=== PATIENT | male | born 1945 | race American Indian/Alaskan Native ===

== ENCOUNTER 2018-10-30 12:53 | Inpatient (IN) | payer MEDICARE ==
[~2018-10-30 12:53] MED LIST: PNEUMOVAX 23 IM ONE
[2018-10-30 13:32] LABS: Basophils % (Auto) 0.2 % (0.0-1.8); Eosinophils % (Auto) 0.1 % (0.0-4.3); Hematocrit 45.2 % (35.5-45.6); Hemoglobin 15.3 gm/dl (11.8-15.2); Lymphocytes # (Auto) 2.4 K/mm3 (1.2-5.4); Lymphocytes % (Auto) 17.9 % (13.4-35.0); Mean Corpuscular HGB Conc 34 % (32-34); Mean Corpuscular Volume 94 fl (84-94); Monocytes # (Auto) 0.7 K/mm3 (0.0-0.8); Platelet Count 466 K/mm3 (140-440); Red Blood Count 4.81 M/mm3 (3.65-5.03); Red Cell Distribution Width 14.9 % (13.2-15.2)
[2018-10-30 13:47] LABS: BUN/Creatinine Ratio 24; Blood Urea Nitrogen 17 mg/dL (9-20); Calcium 10.7 mg/dL (8.4-10.2); Hemolysis Index 17
[2018-10-30] MEDS ORDERED: XYLOCAINE 1% 20 mL INFILTRATI ONE (13:50)
[2018-10-30] MEDS ORDERED: NACL 0.9% 500 ML 500 ML ONE (14:06)
[2018-10-30] MEDS ORDERED: NACL 0.9% 500 ML 500 ML IV ONE (14:08)
[2018-10-30] MEDS ORDERED: NACL 0.9% 1000 ML IV ONE (14:11)
[2018-10-30] MEDS ORDERED: CLEOCIN 600 MG/50 mL 600 MG/50 ML BAG IV ONE (14:13)
--- NOTE | 2018-10-30 14:58 | XRay Report ---
AP CHEST: HISTORY: Cough No comparison. Normal heart size and pulmonary vascularity. There is patchy infiltration in the right lower lung. This could represent an early infiltrate. There appears to be a severe cystic changes throughout the right upper lobe. This may represent a very large bulla. A right apical pneumothorax is difficult to exclude. There are surgical clips in this area suggesting this is secondary to surgery. The left lung is clear. Normal heart size. IMPRESSION: Abnormal right lung. Subtle infiltrate or nodularity is identified in the lower right lung. There is a large bulla or possibly in the right apical pneumothorax. Consider further evaluation with CT chest with contrast.
--- NOTE | 2018-10-30 15:22 | Emergency Department Report ---
ED General Adult HPI - General Chief complaint: Skin/Abscess/Foreign Body Stated complaint: ABCESS Time Seen by Provider: 10/30/18 13:31 Source: EMS, old records reviewed Mode of arrival: Stretcher Limitations: Physical Limitation - History of Present Illness Initial comments: Patient presents to the emergency department from a local correction for ab scess on the right side of his chest. Patient has difficulty with talking so there is a barrier upon attainment of the history. Patient voiced does not rise above was better but he denies any pain. Patient states the abscess started a week ago -: Gradual Location: chest Radiation: non-radiation Severity scale (0 -10): 0 Improves with: none Worsens with: none Associated Symptoms: denies other symptoms Treatments Prior to Arrival: none - Related Data Home Medications Medication Instructions Recorded Confirmed Last Taken Lisinopril [Zestril] 20 mg PO DAILY 08/22/18 10/30/18 Unknown Loperamide HCl [Imodium A-D] 2 mg PO Q6HR PRN 08/22/18 10/30/18 Unknown Megestrol [Megace] 20 mg PO DAILY 08/22/18 10/30/18 Unknown Mirtazapine [Remeron] 15 mg PO HS 08/22/18 10/30/18 Unknown Multivit-Min/Iron Fum/Folic AC 1 each PO DAILY 08/22/18 10/30/18 Unknown [Qonzf-Imnyttu-Mfslfqno Tablet] Tramadol HCl [Ultram] 50 mg PO Q6H PRN 08/22/18 10/30/18 Unknown ALBUTEROL NEB's [Proventil] 2.5 mg IH BID PRN 10/30/18 10/30/18 Unknown Acetaminophen [Tylenol] 500 mg PO Q8HR PRN 10/30/18 10/30/18 Unknown Budesonide [Pulmicort] 0.5 mg IH Q12HR PRN 10/30/18 10/30/18 Unknown Cholestyramine (with Sugar) 4 gm PO DAILY 10/30/18 10/30/18 Unknown [Questran Powder] Pantoprazole [Protonix] 40 mg PO QDAY 10/30/18 10/30/18 Unknown Saccharomyces Boulardii [Florastor] 250 mg PO BID PRN 10/30/18 10/30/18 Unknown levETIRAcetam [Keppra TAB] 500 mg PO BID 10/30/18 10/30/18 Unknown Allergies Allergy/AdvReac Type Severity Reaction Status Date / Time No Known Allergies Allergy Verified 08/21/18 19:54 ED Review of Systems ROS: Stated complaint: ABCESS Other details as noted in HPI Comment: All other systems reviewed and negative Constitutional: denies: chills, fever Eyes: denies: eye pain, eye discharge, vision change ENT: denies: ear pain, throat pain Respiratory: denies: cough, shortness of breath, wheezing Cardiovascular: denies: chest pain, palpitations Endocrine: no symptoms reported Gastrointestinal: denies: abdominal pain, nausea, diarrhea Genitourinary: denies: urgency, dysuria Musculoskeletal: denies: back pain, joint swelling, arthralgia Skin: denies: rash, lesions Neurological: denies: headache, weakness, paresthesias Psychiatric: denies: anxiety, depression Hematological/Lymphatic: denies: easy bleeding, easy bruising ED Past Medical Hx - Past Medical History Hx Hypertension: Yes Hx Diabetes: Yes Hx HIV: No Additional medical history: afib - Social History Smoking Status: Never Smoker Substance Use Type: None - Medications Home Medications: Home Medications Medication Instructions Recorded Confirmed Last Taken Type Lisinopril [Zestril] 20 mg PO DAILY 08/22/18 10/30/18 Unknown History Loperamide HCl [Imodium A-D] 2 mg PO Q6HR PRN 08/22/18 10/30/18 Unknown History Megestrol [Megace] 20 mg PO DAILY 08/22/18 10/30/18 Unknown History Mirtazapine [Remeron] 15 mg PO HS 08/22/18 10/30/18 Unknown History Multivit-Min/Iron Fum/Folic AC 1 each PO DAILY 08/22/18 10/30/18 Unknown History [Mpwdj-Njoswbr-Kxczziqo Tablet] Tramadol HCl [Ultram] 50 mg PO Q6H PRN 08/22/18 10/30/18 Unknown History ALBUTEROL NEB's [Proventil] 2.5 mg IH BID PRN 10/30/18 10/30/18 Unknown History Acetaminophen [Tylenol] 500 mg PO Q8HR PRN 10/30/18 10/30/18 Unknown History Budesonide [Pulmicort] 0.5 mg IH Q12HR PRN 10/30/18 10/30/18 Unknown History Cholestyramine (with Sugar) 4 gm PO DAILY 10/30/18 10/30/18 Unknown History [Questran Powder] Pantoprazole [Protonix] 40 mg PO QDAY 10/30/18 10/30/18 Unknown History Saccharomyces Boulardii [Florastor] 250 mg PO BID PRN 10/30/18 10/30/18 Unknown History levETIRAcetam [Keppra TAB] 500 mg PO BID 10/30/18 10/30/18 Unknown History ED Physical Exam - General Limitations: Physical Limitation General appearance: alert, in no apparent distress - Head Head exam: Present: atraumatic, normocephalic - Eye Eye exam: Present: normal appearance, PERRL, EOMI - ENT ENT exam: Present: mucous membranes moist - Neck Neck exam: Present: normal inspection - Respiratory Respiratory exam: Present: normal lung sounds bilaterally, other (abscess of the right chest wall lateral aspect). Absent: respiratory distress - Cardiovascular Cardiovascular Exam: Present: normal rhythm, tachycardia. Absent: systolic murmur, diastolic murmur, rubs, gallop - GI/Abdominal GI/Abdominal exam: Present: soft, normal bowel sounds. Absent: distended, tenderness - Rectal Rectal exam: Present: deferred - Extremities Exam Extremities exam: Present: normal inspection - Back Exam Back exam: Present: normal inspection - Neurological Exam Neurological exam: Present: alert, oriented X3, CN II-XII intact. Absent: motor sensory deficit - Psychiatric Psychiatric exam: Present: normal affect, normal mood - Skin Skin exam: Present: warm, dry, intact, normal color. Absent: rash ED Course Vital Signs 10/30/18 10/30/18 10/30/18 13:02 13:05 13:16 Temperature 98.1 F Pulse Rate 103 H 102 H 101 H Respiratory 28 H 18 46 H Rate Blood Pressure 101/70 101/70 O2 Sat by Pulse 97 98 Oximetry 10/30/18 10/30/18 10/30/18 13:30 13:45 14:00 Temperature Pulse Rate 100 H 102 H 100 H Respiratory 42 H 50 H 42 H Rate Blood Pressure 81/59 101/70 77/57 O2 Sat by Pulse 89 Oximetry 10/30/18 10/30/18 10/30/18 14:15 14:30 14:45 Temperature Pulse Rate 96 H 94 H 93 H Respiratory 40 H 35 H 38 H Rate Blood Pressure 77/57 86/57 86/57 O2 Sat by Pulse Oximetry 10/30/18 10/30/18 10/30/18 15:00 15:15 15:30 Temperature Pulse Rate 87 88 Respiratory 35 H 44 H Rate Blood Pressure 94/67 94/67 102/75 O2 Sat by Pulse Oximetry - I & D Right Lateral Chest Type of Procedure: Simple Blade Size: 11 I & D Procedure: betadine prep Progress: Lidocaine 1% was used Significant amount of purulent drainage was removed from abscess Patient tolerated procedure well ED Medical Decision Making - Lab Data Result diagrams: 10/30/18 13:20 10/30/18 13:20 Lab Results 10/30/18 10/30/18 10/30/18 Range/Units 13:20 13:20 13:20 WBC 13.4 H (4.5-11.0) K/mm3 RBC 4.81 (3.65-5.03) M/mm3 Hgb 15.3 H (11.8-15.2) gm/dl Hct 45.2 (35.5-45.6) % MCV 94 (84-94) fl MCH 32 (28-32) pg MCHC 34 (32-34) % RDW 14.9 (13.2-15.2) % Plt Count 466 H (140-440) K/mm3 Lymph % (Auto) 17.9 (13.4-35.0) % [place] % (Auto) 5.0 (0.0-7.3) % Eos % (Auto) 0.1 (0.0-4.3) % Baso % (Auto) 0.2 (0.0-1.8) % Lymph # 2.4 (1.2-5.4) K/mm3 [place] # 0.7 (0.0-0.8) K/mm3 Eos # 0.0 (0.0-0.4) K/mm3 Baso # 0.0 (0.0-0.1) K/mm3 Seg Neutrophils % 76.8 H (40.0-70.0) % Seg Neutrophils # 10.3 H (1.8-7.7) K/mm3 Sodium 129 L (137-145) mmol/L Potassium 5.0 (3.6-5.0) mmol/L Chloride 92.7 L (98-107) mmol/L Carbon Dioxide 21 L (22-30) mmol/L Anion Gap 20 mmol/L BUN 17 (9-20) mg/dL Creatinine 0.7 L (0.8-1.5) mg/dL Estimated GFR > 60 ml/min BUN/Creatinine Ratio 24 % Glucose 96 (75-100) mg/dL Lactic Acid 1.80 (0.7-2.0) mmol/L Calcium 10.7 H (8.4-10.2) mg/dL - Radiology Data Radiology results: report reviewed [address] [address] XRay Report Signed Patient: SRIDHAR AIKEN MR#: [id number] : 1945 Acct:[id number] Age/Sex: 73 / M ADM Date: 10/30/18 Loc: ED Attending Dr: Ordering Physician: FLORENCE AVERY MD Date of Service: 10/30/18 Procedure(s): XR chest 1V ap Accession Number(s): [id number] cc: FLORENCE AVERY MD Fluoro Time In Minutes: AP CHEST: HISTORY: Cough No comparison. Normal heart size and pulmonary vascularity. There is patchy infiltration in the right lower lung. This could represent an early infiltrate. There appears to be a severe cystic changes throughout the right upper lobe. This may represent a very large bulla. A right apical pneumothorax is difficult to exclude. There are surgical clips in this area suggesting this is secondary to surgery. The left lung is clear. Normal heart size. IMPRESSION: Abnormal right lung. Subtle infiltrate or nodularity is identified in the lower right lung. There is a large bulla or possibly in the right apical pneumothorax. Consider further evaluation with CT chest with contrast. Transcribed By: TTR Dictated By: AGUSTIN JEFFERSON JR, MD Electronically Authenticated By: AGUSTIN JEFFERSON JR, MD Signed Date/Time: 10/30/181455 DD/ 53 TD/TT: 10/30/181455 [address] [address] Cat Scan Report Signed Patient: SRIDHAR AIKEN MR#: [id number] : 1945 Acct:[id number] Age/Sex: 73 / M ADM Date: 10/30/18 Loc: ED Attending Dr: Ordering Physician: FLORENCE AVERY MD Date of Service: 10/30/18 Procedure(s): CT chest wo con Accession Number(s): [id number] cc: FLORENCE AVERY MD FINAL REPORT EXAM: CT CHEST WO CON HISTORY: pneumothorax COMPARISON: CT of the abdomen and pelvis performed on 08/21/2018. TECHNIQUE: Multiple contiguous axial images were obtained from the thoracic inlet to the upper abdomen without administration of IV contrast. Reformatted sagittal and coronal images were available for review. FINDINGS: Medical devices: None. Thyroid: Normal. Lymph nodes: Pretracheal lymph nodes measuring up to 1 centimeter. Vasculature: Normal caliber of the thoracic aorta with scattered atherosclerotic calcifications. Normal noncontrast appearance of the pulmonary artery.. Heart: Normal heart size. Scattered coronary artery calcifications. Other mediastinal structures: Normal. Lung parenchyma: There is a large bulla in the right upper leann thorax. The right upper lobe has been removed. There is centrilobular emphysematous change. There are multiple nodules involving the bilateral lower lobes, right greater than left. The largest nodule in the right lower lobe measures approximately 2.1 x 1.9 centimeters. There is a more focal consolidation in the posterior right lower lobe that measures approximately 3.6 x 3.2 centimeters. The largest nodule in the left lower lobe measures 1.3 centimeters. There is an additional nodule in the left apex measuring approximately 6 millimeters. Airways: Amplatzer closure device in the area of the right upper lobe bronchus. Diffuse bronchiectasis. Pleura: No pleural effusion or pneumothorax. Right-sided pleural calcifications. Chest wall and spine: There is a 4.2 x 3.3 centimeter soft tissue lesion along the right anterolateral chest wall with some erosion of the adjacent 8th anterior rib (series 2, image 122). This lesion is increased in size as compared to the previous study (previously 1.8 x 1.2 centimeters). There are postsurgical changes along the right posterior chest wall. Upper Abdomen: No acute abnormality. IMPRESSION: 1. Multiple nodules in the bilateral lower lobes measuring up to 2.1 x 1.9 centimeters. Additional area of more focal consolidation in the posterior right lower lobe. Differential diagnosis includes infection or inflammation versus metastatic disease. 2. 4.2 x 3.3 centimeter soft tissue lesion along the right anterolateral chest wall with some erosion of the adjacent 8th anterior rib. Findings are concerning for malignancy such as soft tissue sarcoma. Recommend clinical correlation and malignancy workup. Differential diag nosis includes metastatic lesion. 3. Pretracheal lymph nodes measuring up to 1 centimeter in short axis, may be reactive versus metastatic. 4. Postsurgical change from right upper lobe removal. Large bulla in the right upper leann thorax. Transcribed By: OPHELIA Dictated By: DIAN PINO MD Electronically Authenticated By: DIAN PINO MD Signed Date/Time: 10/30/18 162 DD/ 29 TD/TT: 10/30/181629 - Medical Decision Making The patient became hypotensive(77/57) and a bolus of fluids was given and sepsis protocol started Initially was felt that the lesion on the right side of the patient's chest was an abscess even after draining a significant amount of purulent residue that was obtained from the lesion. After reading the CAT scan results there is concern that this is possibly a metastatic lesion Discussed results and plan of care with patient Critical care attestation.: If time is entered above; I have spent that time in minutes in the direct care of this critically ill patient, excluding procedure time. ED Disposition Clinical Impression: SIRS (systemic inflammatory response syndrome), Pneumonia Disposition: OP ADMIT IP TO THIS HOSP Is pt being admited?: Yes Does the pt Need Aspirin: No Condition: Fair Instructions: Bacterial Pneumonia (ED) Referrals: PRIMARY CARE, [Primary Care Provider] - 3-5 Days
[2018-10-30] MEDS ORDERED: LEVAQUIN 750MG/150ML 750 MG/150 ML BAG IV ONE (15:43)
--- NOTE | 2018-10-30 16:29 | Cat Scan Report ---
FINAL REPORT EXAM: CT CHEST WO CON HISTORY: pneumothorax COMPARISON: CT of the abdomen and pelvis performed on 08/21/2018. TECHNIQUE: Multiple contiguous axial images were obtained from the thoracic inlet to the upper abdom en without administration of IV contrast. Reformatted sagittal and coronal images were available for review. FINDINGS: Medical devices: None. Thyroid: Normal. Lymph nodes: Pretracheal lymph nodes measuring up to 1 centimeter. Vasculature: Normal caliber of the thoracic aorta with scattered atherosclerotic calcifications. Norm al noncontrast appearance of the pulmonary artery.. Heart: Normal heart size. Scattered coronary artery calcifications. Other mediastinal structures: Normal. Lung parenchyma: There is a large bulla in the right upper leann thorax. The right upper lobe has been removed. There is centrilobular emphysematous change. There are multiple nodules involving the bilat eral lower lobes, right greater than left. The largest nodule in the right lower lobe measures approx imately 2.1 x 1.9 centimeters. There is a more focal consolidation in the posterior right lower lobe that measures approximately 3.6 x 3.2 centimeters. The largest nodule in the left lower lobe measures 1.3 centimeters. There is an additional nodule in the left apex measuring approximately 6 millimeter s. Airways: Amplatzer closure device in the area of the right upper lobe bronchus. Diffuse bronchiectas is. Pleura: No pleural effusion or pneumothorax. Right-sided pleural calcifications. Chest wall and spine: There is a 4.2 x 3.3 centimeter soft tissue lesion along the right anterolatera l chest wall with some erosion of the adjacent 8th anterior rib (series 2, image 122). This lesion is increased in size as compared to the previous study (previously 1.8 x 1.2 centimeters). There are po stsurgical changes along the right posterior chest wall. Upper Abdomen: No acute abnormality. IMPRESSION: 1. Multiple nodules in the bilateral lower lobes measuring up to 2.1 x 1.9 centimeters. Additional ar ea of more focal consolidation in the posterior right lower lobe. Differential diagnosis includes inf ection or inflammation versus metastatic disease. 2. 4.2 x 3.3 centimeter soft tissue lesion along the right anterolateral chest wall with some erosion of the adjacent 8th anterior rib. Findings are concerning for malignancy such as soft tissue sarcoma . Recommend clinical correlation and malignancy workup. Differential diagnosis includes metastatic le talia. 3. Pretracheal lymph nodes measuring up to 1 centimeter in short axis, may be reactive versus metasta tic. 4. Postsurgical change from right upper lobe removal. Large bulla in the right upper leann thorax.
--- NOTE | 2018-10-30 23:26 | History and Physical Report ---
History of Present Illness Date of examination: 10/30/18 Date of admission: 10/30/18 16:41 History of present illness: - History of Present Illness Initial comments: Patient presents to the emergency department from a local long-term for abscess on the right side of his chest. Patient has difficulty with talking so there is a barrier upon attainment of the history. Patient voiced does not rise above was better but he denies any pain. Patient states the abscess started a week ago -: Gradual Location: chest Radiation: non-radiation Severity scale (0 -10): 0 Improves with: none Worsens with: none Associated Symptoms: denies other symptoms Treatments Prior to Arrival: none - Related Data Home Medications Medication Instructions Recorded Confirmed Last Taken Lisinopril [Zestril] 20 mg PO DAILY 08/22/18 10/30/18 Unknown Loperamide HCl [Imodium A-D] 2 mg PO Q6HR PRN 08/22/18 10/30/18 Unknown Megestrol [Megace] 20 mg PO DAILY 08/22/18 10/30/18 Unknown Mirtazapine [Remeron] 15 mg PO HS 08/22/18 10/30/18 Unknown Multivit-Min/Iron Fum/Folic AC 1 each PO DAILY 08/22/18 10/30/18 Unknown [Saafo-Letcgol-Buopeuko Tablet] Tramadol HCl [Ultram] 50 mg PO Q6H PRN 08/22/18 10/30/18 Unknown ALBUTEROL NEB's [Proventil] 2.5 mg IH BID PRN 10/30/18 10/30/18 Unknown Acetaminophen [Tylenol] 500 mg PO Q8HR PRN 10/30/18 10/30/18 Unknown Budesonide [Pulmicort] 0.5 mg IH Q12HR PRN 10/30/18 10/30/18 Unknown Cholestyramine (with Sugar) 4 gm PO DAILY 10/30/18 10/30/18 Unknown [Questran Powder] Pantoprazole [Protonix] 40 mg PO QDAY 10/30/18 10/30/18 Unknown Saccharomyces Boulardii [Florastor] 250 mg PO BID PRN 10/30/18 10/30/18 Unknown levETIRAcetam [Keppra TAB] 500 mg PO BID 10/30/18 10/30/18 Unknown Allergies Allergy/AdvReac Type Severity Reaction Status Date / Time No Known Allergies Allergy Verified 08/21/18 19:54 ED Review of Systems ROS: Stated complaint: ABCESS Other details as noted in HPI Comment: All other systems reviewed and negative Constitutional: denies: chills, fever Eyes: denies: eye pain, eye discharge, vision change ENT: denies: ear pain, throat pain Respiratory: denies: cough, shortness of breath, wheezing Cardiovascular: denies: chest pain, palpitations Endocrine: no symptoms reported Gastrointestinal: denies: abdominal pain, nausea, diarrhea Genitourinary: denies: urgency, dysuria Musculoskeletal: denies: back pain, joint swelling, arthralgia Skin: denies: rash, lesions Neurological: denies: headache, weakness, paresthesias Psychiatric: denies: anxiety, depression Hematological/Lymphatic: denies: easy bleeding, easy bruising ED Past Medical Hx - Past Medical History Hx Hypertension: Yes Hx Diabetes: Yes Hx HIV: No Additional medical history: afib - Social History Smoking Status: Never Smoker Substance Use Type: None - Medications Home Medications: Home Medications Medication Instructions Recorded Confirmed Last Taken Type Lisinopril [Zestril] 20 mg PO DAILY 08/22/18 10/30/18 Unknown History Loperamide HCl [Imodium A-D] 2 mg PO Q6HR PRN 08/22/18 10/30/18 Unknown History Megestrol [Megace] 20 mg PO DAILY 08/22/18 10/30/18 Unknown History Mirtazapine [Remeron] 15 mg PO HS 08/22/18 10/30/18 Unknown History Multivit-Min/Iron Fum/Folic AC 1 each PO DAILY 08/22/18 10/30/18 Unknown History [Eaour-Duqnwwm-Eopcmgca Tablet] Tramadol HCl [Ultram] 50 mg PO Q6H PRN 08/22/18 10/30/18 Unknown History ALBUTEROL NEB's [Proventil] 2.5 mg IH BID PRN 10/30/18 10/30/18 Unknown History Acetaminophen [Tylenol] 500 mg PO Q8HR PRN 10/30/18 10/30/18 Unknown History Budesonide [Pulmicort] 0.5 mg IH Q12HR PRN 10/30/18 10/30/18 Unknown History Cholestyramine (with Sugar) 4 gm PO DAILY 10/30/18 10/30/18 Unknown History [Questran Powder] Pantoprazole [Protonix] 40 mg PO QDAY 10/30/18 10/30/18 Unknown History Saccharomyces Boulardii [Florastor] 250 mg PO BID PRN 10/30/18 10/30/18 Unknown History levETIRAcetam [Keppra TAB] 500 mg PO BID 10/30/18 10/30/18 Unknown History Medications and Allergies Allergies Allergy/AdvReac Type Severity Reaction Status Date / Time No Known Allergies Allergy Verified 08/21/18 19:54 Home Medications Medication Instructions Recorded Confirmed Last Taken Type Lisinopril [Zestril] 20 mg PO DAILY 08/22/18 10/30/18 Unknown History Loperamide HCl [Imodium A-D] 2 mg PO Q6HR PRN 08/22/18 10/30/18 Unknown History Megestrol [Megace] 20 mg PO DAILY 08/22/18 10/30/18 Unknown History Mirtazapine [Remeron] 15 mg PO HS 08/22/18 10/30/18 Unknown History Multivit-Min/Iron Fum/Folic AC 1 each PO DAILY 08/22/18 10/30/18 Unknown History [Mqfro-Hkermyx-Cfyoegzq Tablet] Tramadol HCl [Ultram] 50 mg PO Q6H PRN 08/22/18 10/30/18 Unknown History ALBUTEROL NEB's [Proventil] 2.5 mg IH BID PRN 10/30/18 10/30/18 Unknown History Acetaminophen [Tylenol] 500 mg PO Q8HR PRN 10/30/18 10/30/18 Unknown History Budesonide [Pulmicort] 0.5 mg IH Q12HR PRN 10/30/18 10/30/18 Unknown History Cholestyramine (with Sugar) 4 gm PO DAILY 10/30/18 10/30/18 Unknown History [Questran Powder] Pantoprazole [Protonix] 40 mg PO QDAY 10/30/18 10/30/18 Unknown History Saccharomyces Boulardii [Florastor] 250 mg PO BID PRN 10/30/18 10/30/18 Unknown History levETIRAcetam [Keppra TAB] 500 mg PO BID 10/30/18 10/30/18 Unknown History Active Meds: Active Medications Pneumococcal Polyvalent Vaccine (Pneumovax 23) 0.5 ml IM .ONCE ONE Stop: 10/31/18 12:01 Exam - Constitutional Vitals: Temp Pulse Resp BP Pulse Ox 98.5 F 100 H 18 90/58 97 10/30/18 20:00 10/30/18 20:00 10/30/18 20:00 10/30/18 20:00 10/30/18 20:00 Results - Labs CBC & Chem 7: 10/30/18 13:20 10/30/18 13:20 Labs: Laboratory Last Values WBC 13.4 K/mm3 (4.5-11.0) H 10/30/18 13:20 RBC 4.81 M/mm3 (3.65-5.03) 10/30/18 13:20 Hgb 15.3 gm/dl (11.8-15.2) H 10/30/18 13:20 Hct 45.2 % (35.5-45.6) 10/30/18 13:20 MCV 94 fl (84-94) 10/30/18 13:20 MCH 32 pg (28-32) 10/30/18 13:20 MCHC 34 % (32-34) 10/30/18 13:20 RDW 14.9 % (13.2-15.2) 10/30/18 13:20 Plt Count 466 K/mm3 (140-440) H 10/30/18 13:20 Lymph % (Auto) 17.9 % (13.4-35.0) 10/30/18 13:20 [place] % (Auto) 5.0 % (0.0-7.3) 10/30/18 13:20 Eos % (Auto) 0.1 % (0.0-4.3) 10/30/18 13:20 Baso % (Auto) 0.2 % (0.0-1.8) 10/30/18 13:20 Lymph # 2.4 K/mm3 (1.2-5.4) 10/30/18 13:20 [place] # 0.7 K/mm3 (0.0-0.8) 10/30/18 13:20 Eos # 0.0 K/mm3 (0.0-0.4) 10/30/18 13:20 Baso # 0.0 K/mm3 (0.0-0.1) 10/30/18 13:20 Seg Neutrophils % 76.8 % (40.0-70.0) H 10/30/18 13:20 Seg Neutrophils # 10.3 K/mm3 (1.8-7.7) H 10/30/18 13:20 Sodium 129 mmol/L (137-145) L 10/30/18 13:20 Potassium 5.0 mmol/L (3.6-5.0) 10/30/18 13:20 Chloride 92.7 mmol/L (98-107) L 10/30/18 13:20 Carbon Dioxide 21 mmol/L (22-30) L 10/30/18 13:20 Anion Gap 20 mmol/L 10/30/18 13:20 BUN 17 mg/dL (9-20) 10/30/18 13:20 Creatinine 0.7 mg/dL (0.8-1.5) L 10/30/18 13:20 Estimated GFR > 60 ml/min 10/30/18 13:20 BUN/Creatinine Ratio 24 % 10/30/18 13:20 Glucose 96 mg/dL (75-100) 10/30/18 13:20 POC Glucose 97 (70-105) 10/30/18 16:30 Lactic Acid 1.70 mmol/L (0.7-2.0) 10/30/18 20:49 Calcium 10.7 mg/dL (8.4-10.2) H 10/30/18 13:20 - Imaging and Cardiology EKG: report reviewed Imaging and Cardiology: CT Chest IMPRESSION: 1. Multiple nodules in the bilateral lower lobes measuring up to 2.1 x 1.9 centimeters. Additional area of more focal consolidation in the posterior right lower lobe. Differential diagnosis includes infection or inflammation v ersus metastatic disease. 2. 4.2 x 3.3 centimeter soft tissue lesion along the right anterolateral chest wall with some erosion of the adjacent 8th anterior rib. Findings are concerning for malignancy such as soft tissue sarcoma. Recommend clinical correlation and malignancy workup. Differential diagnosis includes metastatic lesion. 3. Pretracheal lymph nodes measuring up to 1 centimeter in short axis, may be reactive versus metastatic. 4. Postsurgical change from right upper lobe removal. Large bulla in the right upper leann thorax. CXR IMPRESSION: Abnormal right lung. Subtle infiltrate or nodularity is identified in the lower right lung. There is a large bulla or possibly in the right apical pneumothorax. Consider further evaluation with CT chest with contrast. Assessment and Plan Advance Directives: Yes (Full code ) VTE prophylaxis?: Chemical Plan of care discussed with patient/family: Yes - Patient Problems (1) Pneumonia Current Visit: Yes Status: Acute
[2018-10-31] MEDS ORDERED: TYLENOL PO PRN ×2 (00:11→00:14)
[2018-10-31] MEDS ORDERED: LOPERAMIDE HCL 2 MG PO PRN (00:11)
[2018-10-31] MEDS ORDERED: SACCHAROMYCES BOULARDII 250 MG PO PRN (00:11)
[2018-10-31] MEDS ORDERED: PULMICORT IH PRN (00:11)
[2018-10-31] MEDS ORDERED: ULTRAM PO PRN (00:11)
[2018-10-31] MEDS ORDERED: ZOFRAN IV PRN (00:14)
[2018-10-31] MEDS ORDERED: REGLAN IV PRN (00:14)
[2018-10-31] MEDS ORDERED: DILAUDID IV PRN (00:14)
[2018-10-31] MEDS ORDERED: SODIUM CHLORIDE FLUSH SYRINGE 10 ML IV PRN (00:14)
[2018-10-31 00:50] LABS: Hematocrit 37.1 % (35.5-45.6); Hemoglobin 12.2 gm/dl (11.8-15.2); Mean Corpuscular HGB Conc 33 % (32-34); Mean Corpuscular Volume 95 fl (84-94); Platelet Count 353 K/mm3 (140-440); Red Blood Count 3.92 M/mm3 (3.65-5.03); Red Cell Distribution Width 15.3 % (13.2-15.2)
[2018-10-31 01:09] LABS: Alanine Aminotransferase 10 units/L (7-56); Albumin 3.4 g/dL (3.9-5); BUN/Creatinine Ratio 27; Blood Urea Nitrogen 16 mg/dL (9-20); Calcium 9.5 mg/dL (8.4-10.2); Hemolysis Index 47
[2018-10-31 01:52] LABS: Anisocytosis 1+; Basophils % (Manual) 0 % (0.0-1.8); Eosinophils % (Manual) 0 % (0.0-4.3); Total Cells Counted 100
[2018-10-31 01:53] LABS: Burr Cells 2+; Helmet Cells Rare; Ovalocytes 1+
[2018-10-31] MEDS ORDERED: CLEOCIN 600 MG/50 mL 600 MG/50 ML BAG IV SCH (02:00)
[2018-10-31] MEDS ORDERED: IMODIUM PO PRN (02:46)
[2018-10-31] MEDS: KEPPRA PO SCH ×4 (02:47→23:21)
[2018-10-31] MEDS: NACL 0.9% 1000 ML 1,000 ML IV SCH (02:53)
[2018-10-31 05:42] LABS: Bilirubin,Urine NEG (Negative); Blood,Urine NEG (Negative); Calcium Oxalate Crystals,Urine 1+; Color,Urine Yellow (Yellow); Hyaline Casts,Urine 4 /LPF; Mucus,Urine FEW /HPF; Protein,Urine <15 mg/dL mg/dL (Negative); Urobilinogen,Urine < 2.0 mg/dL (<2.0)
--- NOTE | 2018-10-31 05:51 | Event Note ---
Date: 10/30/18 See H/p in reports Lung Cancer versus Mets Rt Chest cutaneous abscess
--- NOTE | 2018-10-31 06:53 | History and Physical Report ---
CHIEF COMPLAINT: Right chest swelling for 1 week. HISTORY OF PRESENT ILLNESS: A 73-year-old male from [facility], comes in for right chest swelling for about 4 cm x 3 cm of 1 week duration. The patient is not able to describe. Has some pain there. No fever or chills. He has been losing weight. Some shortness of breath present. No recent travel. The patient is a [facility] a [facility]. The patient has history of hypertension, COPD, GERD and seizure disorder. PAST MEDICAL HISTORY: As mentioned, seizure disorder, hypertension, loss of appetite, loss of weight, GERD and chronic pain. PAST SURGICAL HISTORY: Right upper lobe removal. SOCIAL HISTORY: Lives in local [facility]. Does not smoke. FAMILY HISTORY: Unavailable. CURRENT MEDICATIONS: On the chart. REVIEW OF SYSTEMS: Significant for right chest swelling 4 cm x 3 cm, consistent with tumor versus abscess. PHYSICAL EXAMINATION: GENERAL: Elderly male, cooperative during examination, poor historian. VITAL SIGNS: Blood pressure is 103/72, temperature is 98.5, pulse rate is 103, respiratory rate is 26, O2 sats are 98%. HEENT: Unremarkable. Pupils equal and reactive. NECK: Supple, no lymphadenopathy, no thyromegaly. CHEST AND LUNGS: Have 4 cm x 3 cm swelling on the right chest present consistent with soft tissue swelling, possible abscess. Bilateral inspiratory rhonchi and expiratory rhonchi present. CARDIOVASCULAR SYSTEM: S1, S2 heard. No gallop, no murmur, no rub. Apical impulse in left fifth intercostal space in midclavicular line. ABDOMEN: Soft and benign. No hepatosplenomegaly, no guarding, no rigidity. Hernial orifices were normal. EXTREMITIES: Normal. CENTRAL NERVOUS SYSTEM: Alert and oriented x 2. Nonfocal exam. SKIN: As mentioned, have a 3 cm x 4 cm swelling on the right chest present along the right anterior chest wall. DIAGNOSTIC DATA: Chest x-ray consistent with COPD and right upper lobectomy and multiple nodules present, not ruled in the right apical pneumothorax. Chest CT consistent with multiple pulmonary nodules and bony erosions of the right side of the chest along with a soft tissue swelling 4 cm x 3 cm in the right anterolateral region. LABORATORY DATA: Significant for white count of 13,000, H and H of 15.3 and 45.2. Sodium is 129, BUN and creatinine 17 and 0.7, potassium is 5.0, calcium is 10.7. Urine WBC is 8.0. ASSESSMENT AND PLAN: 1. Right chest soft tissue swelling. Possible sarcoma. Oncology and Surgery consult requested. Biopsy may be taken there. There is rib erosion. 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 2. 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 The patient is to have biopsy of the pulmonary nodule over the chest wall soft tissue swelling. 3. Sepsis likely. IV cefepime and vancomycin initiated. 4. Chronic obstructive pulmonary disease. DuoNebs initiated. 5. Hypertension. Continue lisinopril. 6. Seizure disorder. Continue Keppra. 7. Gastroesophageal reflux disease. Continue Protonix. 8. Chronic pain. Pain management. The patient on tramadol. 9. Deep venous thrombosis prophylaxis, Lovenox 40 mg subcutaneous daily 10. Hyponatremia. IV fluids for now. 11. Hypercalcemia, probably volume depletion. IV fluids for now. Monitor calcium. In the differential, possible sarcoma causing hypercalcemia also. JOB# [id number] RAFI/NEW DA SILVAD
[2018-10-31] MEDS ORDERED: VANCOMYCIN PHARMACY TO DOSE IV SCH (07:00)
[2018-10-31] MEDS ORDERED: VANCOMYCIN 750 MG in NACL 0.9% 250ML 250 ML IV ONE (08:00)
[2018-10-31] MEDS: DUONEB *Not for PRN Use IH SCH ×5 (08:33→20:17)
[2018-10-31] MEDS: MAXIPIME/NS 2 GM/100 ML 2 GM/100 ML BAG IV SCH ×3 (08:47→23:17)
[2018-10-31] MEDS ORDERED: NON-FORMULARY (Multivit-Min/Iron Fum/Folic Ac [Multi-Vitamin-Minerals Tablet] 1 EACH) PO SCH (10:00)
[2018-10-31] MEDS ORDERED: CHOLESTYRAMINE 4 GM PO SCH (10:00)
[2018-10-31] MEDS ORDERED: [UNRECOGNIZED DRUG - OTHER] PO SCH (10:00)
--- NOTE | 2018-10-31 10:47 | Consultation ---
History of Present Illness Reason for consult: other (chest wall mass) Requesting physician: BABS BURKS Chief complaint: chest wall swelling - History of present illness History of present illness: 73yo M with history of lung ca presents to ED from care home with reported 1 week history of mass on right chest. Mass was I&D'd in ED. "Purulent" fluid was drainage. CT suggests solid mass. Gen Surg asked to evaluate. Pt reports pain at site of mass during bathing and dressing. +weight loss. +poor appetite. No F/C. Past History Past Medical History: cancer (lung - No chemo or rad given), COPD, GERD, hypert ension, seizures, stroke (February 2018) Past Surgical History: Other (RUL lung resection; trach/PEG) Social history: other (lives in care home). denies: smoking, alcohol abuse, prescription drug abuse, IV drug use Family history: no significant family history Medications and Allergies Allergies Allergy/AdvReac Type Severity Reaction Status Date / Time No Known Allergies Allergy Verified 08/21/18 19:54 Home Medications Medication Instructions Recorded Confirmed Last Taken Type Lisinopril [Zestril] 20 mg PO DAILY 08/22/18 10/30/18 Unknown History Loperamide HCl [Imodium A-D] 2 mg PO Q6HR PRN 08/22/18 10/30/18 Unknown History Megestrol [Megace] 20 mg PO DAILY 08/22/18 10/30/18 Unknown History Mirtazapine [Remeron] 15 mg PO HS 08/22/18 10/30/18 Unknown History Multivit-Min/Iron Fum/Folic AC 1 each PO DAILY 08/22/18 10/30/18 Unknown History [Gpfkc-Hgyacvb-Npcmwanm Tablet] Tramadol HCl [Ultram] 50 mg PO Q6H PRN 08/22/18 10/30/18 Unknown History ALBUTEROL NEB's [Proventil] 2.5 mg IH BID PRN 10/30/18 10/30/18 Unknown History Acetaminophen [Tylenol] 500 mg PO Q8HR PRN 10/30/18 10/30/18 Unknown History Budesonide [Pulmicort] 0.5 mg IH Q12HR PRN 10/30/18 10/30/18 Unknown History Cholestyramine (with Sugar) 4 gm PO DAILY 10/30/18 10/30/18 Unknown History [Questran Powder] Pantoprazole [Protonix] 40 mg PO QDAY 10/30/18 10/30/18 Unknown History Saccharomyces Boulardii [Florastor] 250 mg PO BID PRN 10/30/18 10/30/18 Unknown History levETIRAcetam [Keppra TAB] 500 mg PO BID 10/30/18 10/30/18 Unknown History Active Meds: Active Medications Acetaminophen (Tylenol) 650 mg PO Q4H PRN PRN Reason: Pain MILD(1-3)/Fever >100.5/PINA Albuterol/Ipratropium (Duoneb *Not For Prn Use*) 1 ampul IH QIDRT [facility] Last Admin: 10/31/18 08:34 Dose: Not Given Documented by: Budesonide (Pulmicort) 0.5 mg IH Q12HR PRN PRN Reason: Shortness Of Breath Cholestyramine Resin (Questran) 4 gm PO DAILY [facility] Famotidine (Pepcid) 20 mg IV BID [facility] Hydromorphone HCl (Dilaudid) 0.5 mg IV Q3H PRN PRN Reason: Pain , Severe (7-10) Sodium Chloride (Nacl 0.9% 1000 Ml) 1,000 mls @ 75 mls/hr IV DIRECT [facility] Last Admin: 10/31/18 02:53 Dose: 42 mls/hr Documented by: Cefepime HCl (Maxipime/Ns 2 Gm/100 Ml) 2 gm in 100 mls @ 200 mls/hr IV Q8HR [facility]; Protocol Last Admin: 10/31/18 08:47 Dose: 200 mls/hr Documented by: Vancomycin HCl (Vancomycin/Ns 500 Mg/100 Ml) 500 mg in 100 mls @ 66.667 mls/hr IV Q12H [facility] Levetiracetam (Keppra) 500 mg PO BID [facility] Last Admin: 10/31/18 02:47 Dose: 500 mg Documented by: Lisinopril (Zestril) 20 mg PO DAILY [facility] Loperamide HCl (Imodium) 2 mg PO Q6H PRN PRN Reason: Diarrhea Megestrol Acetate (Megace) 20 mg PO DAILY [facility] Metoclopramide HCl (Reglan) 10 mg IV Q6H PRN PRN Reason: Nausea And Vomiting Mirtazapine (Remeron Solutab) 15 mg PO HS [facility] Miscellaneous Medication (Saccharomyces Boulardii [Florastor]) 250 mg PO BID PRN PRN Reason: Diarrhea Multivitamins/Minerals (Theragran-M Tab) 1 each PO QDAY [facility] Ondansetron HCl (Zofran) 4 mg IV Q8H PRN PRN Reason: Nausea And Vomiting Pantoprazole Sodium (Protonix) 40 mg PO QDAY [facility] Pneumococcal Polyvalent Vaccine (Pneumovax 23) 0.5 ml IM .ONCE ONE Stop: 10/31/18 12:01 Sodium Chloride (Sodium Chloride Flush Syringe 10 Ml) 10 ml IV BID [facility] Sodium Chloride (Sodium Chloride Flush Syringe 10 Ml) 10 ml IV PRN PRN PRN Reason: LINE FLUSH Last Admin: 10/31/18 02:54 Dose: 10 ml Documented by: Tramadol HCl (Ultram) 50 mg PO Q6H PRN PRN Reason: Pain, Moderate (4-6) Review of Systems - Constitutional weight loss, weakness, chronic pain, no fever, no chills - Cardiovascular no chest pain, no rapid/irregular heart beat - Respiratory no cough - Gastrointestinal no abdominal pain, no nausea, no vomiting - Genitourinary no flank pain - Muskuloskeletal no low back pain - Integumentary redness, growths, no rash, no wounds Exam Vital Signs Pulse Resp 103 H 28 H 10/30/18 13:02 10/30/18 13:02 - General physical appearance Positive: no distress, no pain, cathetic, other (pleasant. Has difficulty with speech. Has labored breathing when speaking) - Respiratory Positive: normal expansion, normal respiratory effort, clear to auscultation (decreased on right side) absent breath sounds: right (upper lung cox) - Cardiovascular Rhythm: regular - Abdomen Abdomen: Present: soft, surgical scars (well healed - PEG site). Absent: tender, distended - Integumentary other (4cm mass noted on right lateral chest. Packing in place - primarily blood on dressing. No purulent material seen. No odor. Mild erythema noted in periphery. +tender on lateral aspect) - Neurologic Neurologic: alert and oriented to time, place and person - Psychiatric Psychiatric: appropriate mood/affect, cooperative Results - Labs 10/31/18 00:24 10/31/18 00:24 Abnormal lab results 10/30/18 10/30/18 10/30/18 Range/Units 13:20 13:20 17:17 WBC 13.4 H (4.5-11.0) K/mm3 Hgb 15.3 H (11.8-15.2) gm/dl MCV (84-94) fl RDW (13.2-15.2) % Plt Count 466 H (140-440) K/mm3 Seg Neutrophils % 76.8 H (40.0-70.0) % Seg Neuts % (Manual) (40.0-70.0) % Lymphocytes % (Manual) (13.4-35.0) % Seg Neutrophils # 10.3 H (1.8-7.7) K/mm3 Seg Neutrophils # Man (1.8-7.7) K/mm3 Sodium 129 L (137-145) mmol/L Potassium (3.6-5.0) mmol/L Chloride 92.7 L (98-107) mmol/L Carbon Dioxide 21 L (22-30) mmol/L Creatinine 0.7 L (0.8-1.5) mg/dL Lactic Acid 2.60 H* (0.7-2.0) mmol/L Calcium 10.7 H (8.4-10.2) mg/dL Albumin (3.9-5) g/dL Urine WBC (Auto) (0.0-6.0) /HPF 10/31/18 10/31/18 10/31/18 Range/Units 00:24 00:24 05:35 WBC 27.0 H (4.5-11.0) K/mm3 Hgb (11.8-15.2) gm/dl MCV 95 H (84-94) fl RDW 15.3 H (13.2-15.2) % Plt Count (140-440) K/mm3 Seg Neutrophils % (40.0-70.0) % Seg Neuts % (Manual) 92.0 H (40.0-70.0) % Lymphocytes % (Manual) 5.0 L (13.4-35.0) % Seg Neutrophils # (1.8-7.7) K/mm3 Seg Neutrophils # Man 24.8 H (1.8-7.7) K/mm3 Sodium 130 L (137-145) mmol/L Potassium 5.3 H (3.6-5.0) mmol/L Chloride 96.2 L (98-107) mmol/L Carbon Dioxide 20 L (22-30) mmol/L Creatinine 0.6 L (0.8-1.5) mg/dL Lactic Acid (0.7-2.0) mmol/L Calcium (8.4-10.2) mg/dL Albumin 3.4 L (3.9-5) g/dL Urine WBC (Auto) 8.0 H (0.0-6.0) /HPF Diabetes panel 10/30/18 10/31/18 Range/Units 13:20 00:24 Sodium 129 L 130 L (137-145) mmol/L Potassium 5.0 5.3 H (3.6-5.0) mmol/L Chloride 92.7 L 96.2 L (98-107) mmol/L Carbon Dioxide 21 L 20 L (22-30) mmol/L BUN 17 16 (9-20) mg/dL Creatinine 0.7 L 0.6 L (0.8-1.5) mg/dL Glucose 96 91 (75-100) mg/dL Calcium 10.7 H 9.5 (8.4-10.2) mg/dL AST 19 (5-40) units/L ALT 10 (7-56) units/L Alkaline Phosphatase 121 (35-129) units/L Total Protein 6.5 (6.3-8.2) g/dL Albumin 3.4 L (3.9-5) g/dL Calcium panel 10/30/18 10/31/18 Range/Units 13:20 00:24 Calcium 10.7 H 9.5 (8.4-10.2) mg/dL Albumin 3.4 L (3.9-5) g/dL Pituitary panel 10/30/18 10/31/18 Range/Units 13:20 00:24 Sodium 129 L 130 L (137-145) mmol/L Potassium 5.0 5.3 H (3.6-5.0) mmol/L Chloride 92.7 L 96.2 L (98-107) mmol/L Carbon Dioxide 21 L 20 L (22-30) mmol/L BUN 17 16 (9-20) mg/dL Creatinine 0.7 L 0.6 L (0.8-1.5) mg/dL Glucose 96 91 (75-100) mg/dL Calcium 10.7 H 9.5 (8.4-10.2) mg/dL Adrenal panel 10/30/18 10/31/18 Range/Units 13:20 00:24 Sodium 129 L 130 L (137-145) mmol/L Potassium 5.0 5.3 H (3.6-5.0) mmol/L Chloride 92.7 L 96.2 L (98-107) mmol/L Carbon Dioxide 21 L 20 L (22-30) mmol/L BUN 17 16 (9-20) mg/dL Creatinine 0.7 L 0.6 L (0.8-1.5) mg/dL Glucose 96 91 (75-100) mg/dL Calcium 10.7 H 9.5 (8.4-10.2) mg/dL Total Bilirubin 0.40 (0.1-1.2) mg/dL AST 19 (5-40) units/L ALT 10 (7-56) units/L Alkaline Phosphatase 121 (35-129) units/L Total Protein 6.5 (6.3-8.2) g/dL Albumin 3.4 L (3.9-5) g/dL - Imaging CT scan - chest: report reviewed, image reviewed Assessment and Plan - Patient Problems (1) Neoplasm of uncertain behavior of skin Current Visit: Yes Status: Acute Plan to address problem: Pt stable. Pt with history of cancer. Now with new mass on right chest wall. I wonder if the "purulent" fluid that was drained in the ED was in fact liquefied necrosis of the tumor. I do not have seen anything that looks like purulence today. There only blood draining from the wound. The surrounding tissue in the wound is very thick and granular. Also, the CT is suggestive of a mass. I think it would be helpful to get a biopsy of this mass. Pt in agreement. Will try to get on OR schedule for Friday. Spoke with daughter. Pt has had a complicated history in 2018 with the diagnosis of right lung ca as well as a stroke. She reports that 2 days ago, they started the [facility]. Once we have the results of the biopsy, we can plan the next step. It may simply be helping them get into palliative care/hospice. Please call with questions. time=60min
[2018-10-31] MEDS: THERAGRAN-M Tab PO SCH (11:08)
[2018-10-31] MEDS: PROTONIX PO SCH (11:08)
[2018-10-31] MEDS: QUESTRAN PO SCH (11:08)
[2018-10-31] MEDS: PEPCID IV SCH ×2 (11:11→23:18)
[2018-10-31] MEDS: SODIUM CHLORIDE FLUSH SYRINGE 10 ML IV SCH ×2 (11:12→23:19)
[2018-10-31] MEDS: ZESTRIL PO SCH (11:12)
--- NOTE | 2018-10-31 11:34 | Progress Note ---
Assessment and Plan Assessment and plan: Abscess on the chest, with mass likely malignancy - ED drained, abscess, but there is a big mass there - Surgery consulted and will do biopsy on Friday Sepsis with hypotension; patient is very skinny and i doubt the BP cuff is fit to him - Patient is on IV vancomycin and cefepime - Continue IV fluids - Monitor blood pressure - Follow cultures Patient has history of previous malignancy, resection of part of the lung Severe malnutrition - Nutrition consult DVT prophylaxis Disposition - Continue inpatient care History Interval history: Patient was seen and evaluated this morning, patient's complaining lesion on the right chest, discharging. Hospitalist Physical - Physical exam Narrative exam: Not in cardiopulmonary distress. The patient is emaciated Vital signs as documented. Head exam is unremarkable. No scleral icterus . Neck is without jugular venous distension, thyromegaly, or carotid bruits. Chest there is a mass on the right side of the chest, oozing blood. Lungs are clear to auscultation. Cardiac exam reveals regular rate and Rhythm. Abdominal exam reveals normal bowel sounds, no masses, no organomegaly and no aortic enlargement. Extremities are nonedematous and both femoral and pedal pulses are normal. 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 - Constitutional Vitals: Temp Pulse Resp BP Pulse Ox 97.7 F 87 18 74/48 100 10/31/18 08:01 10/31/18 08:53 10/31/18 08:53 10/31/18 08:01 10/31/18 08:34 Results - Labs CBC & Chem 7: 10/31/18 00:24 10/31/18 00:24 Labs: Laboratory Last Values WBC 27.0 K/mm3 (4.5-11.0) H 10/31/18 00:24 RBC 3.92 M/mm3 (3.65-5.03) 10/31/18 00:24 Hgb 12.2 gm/dl (11.8-15.2) D 10/31/18 00:24 Hct 37.1 % (35.5-45.6) D 10/31/18 00:24 MCV 95 fl (84-94) H 10/31/18 00:24 MCH 31 pg (28-32) 10/31/18 00:24 MCHC 33 % (32-34) 10/31/18 00:24 RDW 15.3 % (13.2-15.2) H 10/31/18 00:24 Plt Count 353 K/mm3 (140-440) 10/31/18 00:24 Lymph % (Auto) 17.9 % (13.4-35.0) 10/30/18 13:20 [place] % (Auto) 5.0 % (0.0-7.3) 10/30/18 13:20 Eos % (Auto) 0.1 % (0.0-4.3) 10/30/18 13:20 Baso % (Auto) 0.2 % (0.0-1.8) 10/30/18 13:20 Lymph # 2.4 K/mm3 (1.2-5.4) 10/30/18 13:20 [place] # 0.7 K/mm3 (0.0-0.8) 10/30/18 13:20 Eos # 0.0 K/mm3 (0.0-0.4) 10/30/18 13:20 Baso # 0.0 K/mm3 (0.0-0.1) 10/30/18 13:20 Add Manual Diff Complete 10/31/18 00:24 Total Counted 100 10/31/18 00:24 Seg Neutrophils % 76.8 % (40.0-70.0) H 10/30/18 13:20 Seg Neuts % (Manual) 92.0 % (40.0-70.0) H 10/31/18 00:24 Band Neutrophils % 0 % 10/31/18 00:24 Lymphocytes % (Manual) 5.0 % (13.4-35.0) L 10/31/18 00:24 Reactive Lymphs % (Man) 0 % 10/31/18 00:24 Monocytes % (Manual) 3.0 % (0.0-7.3) 10/31/18 00:24 Eosinophils % (Manual) 0 % (0.0-4.3) 10/31/18 00:24 Basophils % (Manual) 0 % (0.0-1.8) 10/31/18 00:24 Metamyelocytes % 0 % 10/31/18 00:24 Myelocytes % 0 % 10/31/18 00:24 Promyelocytes % 0 % 10/31/18 00:24 Blast Cells % 0 % 10/31/18 00:24 Nucleated RBC % Not Reportable 10/31/18 00:24 Seg Neutrophils # 10.3 K/mm3 (1.8-7.7) H 10/30/18 13:20 Seg Neutrophils # Man 24.8 K/mm3 (1.8-7.7) H 10/31/18 00:24 Band Neutrophils # 0.0 K/mm3 10/31/18 00:24 Lymphocytes # (Manual) 1.4 K/mm3 (1.2-5.4) 10/31/18 00:24 Abs React Lymphs (Man) 0.0 K/mm3 10/31/18 00:24 Monocytes # (Manual) 0.8 K/mm3 (0.0-0.8) 10/31/18 00:24 Eosinophils # (Manual) 0.0 K/mm3 (0.0-0.4) 10/31/18 00:24 Basophils # (Manual) 0.0 K/mm3 (0.0-0.1) 10/31/18 00:24 Metamyelocytes # 0.0 K/mm3 10/31/18 00:24 Myelocytes # 0.0 K/mm3 10/31/18 00:24 Promyelocytes # 0.0 K/mm3 10/31/18 00:24 Blast Cells # 0.0 K/mm3 10/31/18 00:24 WBC Morphology Not Reportable 10/31/18 00:24 Hypersegmented Neuts Not Reportable 10/31/18 00:24 Hyposegmented Neuts Not Reportable 10/31/18 00:24 Hypogranular Neuts Not Reportable 10/31/18 00:24 Smudge Cells Not Reportable 10/31/18 00:24 Toxic Granulation Not Reportable 10/31/18 00:24 Toxic Vacuolation Not Reportable 10/31/18 00:24 Dohle Bodies Not Reportable 10/31/18 00:24 Pelger-Huet Anomaly Not Reportable 10/31/18 00:24 Terrence Rods Not Reportable 10/31/18 00:24 Platelet Estimate Appears normal 10/31/18 00:24 Clumped Platelets Not Reportable 10/31/18 00:24 Plt Clumps, EDTA Not Reportable 10/31/18 00:24 Large Platelets Not Reportable 10/31/18 00:24 Giant Platelets Not Reportable 10/31/18 00:24 Platelet Satelliting Not Reportable 10/31/18 00:24 Plt Morphology Comment Not Reportable 10/31/18 00:24 RBC Morphology Not Reportable 10/31/18 00:24 Dimorphic RBCs Not Reportable 10/31/18 00:24 Polychromasia Not Reportable 10/31/18 00:24 Hypochromasia Not Reportable 10/31/18 00:24 Poikilocytosis Not Reportable 10/31/18 00:24 Anisocytosis 1+ 10/31/18 00:24 Microcytosis Not Reportable 10/31/18 00:24 Macrocytosis Not Reportable 10/31/18 00:24 Spherocytes Not Reportable 10/31/18 00:24 Pappenheimer Bodies Not Reportable 10/31/18 00:24 Sickle Cells Not Reportable 10/31/18 00:24 Target Cells Not Reportable 10/31/18 00:24 Tear Drop Cells Not Reportable 10/31/18 00:24 Ovalocytes 1+ 10/31/18 00:24 Helmet Cells Rare 10/31/18 00:24 [place] Bodies Not Reportable 10/31/18 00:24 [place] Rings Not Reportable 10/31/18 00:24 [place] Cells 2+ 10/31/18 00:24 Bite Cells Not Reportable 10/31/18 00:24 Crenated Cell Not Reportable 10/31/18 00:24 Elliptocytes 1+ 10/31/18 00:24 Acanthocytes (Spur) Not Reportable 10/31/18 00:24 Rouleaux Not Reportable 10/31/18 00:24 Hemoglobin C Crystals Not Reportable 10/31/18 00:24 Schistocytes Not Reportable 10/31/18 00:24 Malaria parasites Not Reportable 10/31/18 00:24 Lalo Bodies Not Reportable 10/31/18 00:24 Hem Pathologist Commnt No 10/31/18 00:24 Sodium 130 mmol/L (137-145) L 10/31/18 00:24 Potassium 5.3 mmol/L (3.6-5.0) H 10/31/18 00:24 Chloride 96.2 mmol/L (98-107) L 10/31/18 00:24 Carbon Dioxide 20 mmol/L (22-30) L 10/31/18 00:24 Anion Gap 19 mmol/L 10/31/18 00:24 BUN 16 mg/dL (9-20) 10/31/18 00:24 Creatinine 0.6 mg/dL (0.8-1.5) L 10/31/18 00:24 Estimated GFR > 60 ml/min 10/31/18 00:24 BUN/Creatinine Ratio 27 % 10/31/18 00:24 Glucose 91 mg/dL (75-100) 10/31/18 00:24 POC Glucose 97 (70-105) 10/30/18 16:30 Lactic Acid 1.70 mmol/L (0.7-2.0) 10/30/18 20:49 Calcium 9.5 mg/dL (8.4-10.2) 10/31/18 00:24 Total Bilirubin 0.40 mg/dL (0.1-1.2) 10/31/18 00:24 AST 19 units/L (5-40) 10/31/18 00:24 ALT 10 units/L (7-56) 10/31/18 00:24 Alkaline Phosphatase 121 units/L (35-129) 10/31/18 00:24 Total Protein 6.5 g/dL (6.3-8.2) 10/31/18 00:24 Albumin 3.4 g/dL (3.9-5) L 10/31/18 00:24 Albumin/Globulin Ratio 1.1 % 10/31/18 00:24 Urine Color Yellow (Yellow) 10/31/18 05:35 Urine Turbidity Slightly-cloudy (Clear) 10/31/18 05:35 Urine pH 5.0 (5.0-7.0) 10/31/18 05:35 Ur Specific [place] 1.017 (1.003-1.030) 10/31/18 05:35 Urine Protein <15 mg/dl mg/dL (Negative) 10/31/18 05:35 Urine Glucose (UA) Neg mg/dL (Negative) 10/31/18 05:35 Urine Ketones Tr mg/dL (Negative) 10/31/18 05:35 Urine Blood Neg (Negative) 10/31/18 05:35 Urine Nitrite Neg (Negative) 10/31/18 05:35 Urine Bilirubin Neg (Negative) 10/31/18 05:35 Urine Urobilinogen < 2.0 mg/dL (<2.0) 10/31/18 05:35 Ur Leukocyte Esterase Neg (Negative) 10/31/18 05:35 Urine WBC (Auto) 8.0 /HPF (0.0-6.0) H 10/31/18 05:35 Urine RBC (Auto) 29.0 /HPF (0.0-6.0) 10/31/18 05:35 U Epithel Cells (Auto) 1.0 /HPF (0-13.0) 10/31/18 05:35 Calcium Oxalate Crystal 1+ 10/31/18 05:35 Hyaline Casts 4 /LPF 10/31/18 05:35 Urine Mucus Few /HPF 10/31/18 05:35
[2018-10-31] MEDS ORDERED: PNEUMOVAX 23 IM ONE (12:00)
[2018-10-31] MEDS: MEGACE PO SCH (17:10)
--- NOTE | 2018-10-31 18:36 | Event Note ---
Date: 10/31/18 [id number]
--- NOTE | 2018-10-31 20:29 | Consultation ---
REFERRING PHYSICIAN: Ying Duffy MD REASON FOR CONSULTATION: History of cancer. HISTORY OF PRESENT ILLNESS: I saw the patient, a 73-year-old male, on the medical floor. The patient is very weak, most of the information is obtained from the medical records. As per the note, there is a mention of lung cancer, status post surgery. 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 The patient came to the hospital because of right chest swelling for 1 week. This was about 4 x 3 cm. He had discomfort there. No fever, no chills. He had shortness of breath. The patient is a assisted resident and has had a history of hypertension, COPD, GERD, seizure disorder. After admission, Radiology in the ER showed possible abscess, drainage has been done. Surgical team has seen the patient. I have been asked to evaluate the patient in view of history of cancer. The patient is not able to tell me who his oncologist has been. PAST MEDICAL HISTORY: Seizure, hypertension, loss of weight, GERD, pain issues. PAST SURGICAL HISTORY: Right upper lobe resection. SOCIAL HISTORY: Presently in assisted. FAMILY HISTORY: Not available. REVIEW OF SYSTEMS: Limited because of the patient's weakness. MEDICATIONS: Includes Tylenol, budesonide, Pepcid, Keppra, lisinopril, Megace, Remeron, Zofran. ALLERGIES: None. PHYSICAL EXAMINATION: VITAL SIGNS: Temperature 98, pulse 85, respirations 18, BP 85/55. HEENT: No pallor, no icterus, emaciated. NECK: No neck lymph nodes. HEART: S1, S2. LUNGS: Decreased air entry. There is bandage in the right lower side of the chest. ABDOMEN: Soft. EXTREMITIES: No pedal edema. The patient is emaciated. NEUROLOGIC: Alert, awake, feeble voice. LABORATORY DATA: White cell 27, hemoglobin 12, MCV 95, platelet 353. Predominant neutrophil. Potassium 5.3, creatinine 0.6, bilirubin 0.4. RADIOLOGY: CT chest was done. This showed large bulla, right upper hemithorax; multiple nodules, bilateral lower lobes, largest 2.1 cm; consolidation in right lower lobe. Chest wall, 4 x 3.3 cm soft tissue with some erosion of the adjacent eighth rib. IMPRESSION: 1. Soft tissue lesion, right lung. Neoplasm versus abscess, seen by surgical team. 2. Bilateral lower lobe nodules, which may be neoplastic. 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 It is not clear if this was lung cancer or sarcoma. The patient is emaciated. 3. History of hypertension. Now, the BP is low. 4. History of loss of weight. 5. History of seizure disorder. There is a plan for biopsy. We will await for pathology. The nursing staff will call the family to find out who the patient's oncologist is. 6. Leukocytosis, likely reactive. JOB# [id number] NM/NTS
[2018-10-31] MEDS: VANCOMYCIN/NS 500 MG/100 ML 500 MG/100 ML BAG IV SCH (20:54)
[2018-10-31] MEDS: REMERON SOLUTAB PO SCH (23:19)
[2018-11-01] MEDS: MAXIPIME/NS 2 GM/100 ML 2 GM/100 ML BAG IV SCH ×2 (05:41→09:19)
[2018-11-01] MEDS: NACL 0.9% 1000 ML 1,000 ML IV SCH (05:46)
[2018-11-01 06:56] LABS: Basophils # (Auto) 0.1 K/mm3 (0.0-0.1); Basophils % (Auto) 0.5 % (0.0-1.8); Hematocrit 32.9 % (35.5-45.6); Hemoglobin 10.5 gm/dl (11.8-15.2); Lymphocytes # (Auto) 2.3 K/mm3 (1.2-5.4); Mean Corpuscular HGB Conc 32 % (32-34); Mean Corpuscular Volume 99 fl (84-94); Monocytes # (Auto) 1.1 K/mm3 (0.0-0.8); Monocytes % (Auto) 9.6 % (0.0-7.3); Platelet Count 276 K/mm3 (140-440); Red Blood Count 3.32 M/mm3 (3.65-5.03); Red Cell Distribution Width 15.3 % (13.2-15.2)
[2018-11-01 07:12] LABS: BUN/Creatinine Ratio 18; Blood Urea Nitrogen 11 mg/dL (9-20); Calcium 8.7 mg/dL (8.4-10.2); Hemolysis Index 14
[2018-11-01] MEDS: DUONEB *Not for PRN Use IH SCH ×4 (07:50→20:08)
[2018-11-01] MEDS ORDERED: NACL 0.9% 1000 ML 1,000 ML IV SCH (09:00)
[2018-11-01] MEDS: KEPPRA PO SCH ×2 (09:11→22:58)
[2018-11-01] MEDS: PROTONIX PO SCH (09:11)
[2018-11-01] MEDS: QUESTRAN PO SCH (09:11)
[2018-11-01] MEDS: MEGACE PO SCH (09:11)
[2018-11-01] MEDS: PEPCID IV SCH (09:12)
[2018-11-01] MEDS: THERAGRAN-M Tab PO SCH (09:12)
[2018-11-01] MEDS: SODIUM CHLORIDE FLUSH SYRINGE 10 ML IV SCH ×2 (09:15→23:02)
[2018-11-01] MEDS: ZESTRIL PO SCH (09:21)
--- NOTE | 2018-11-01 11:26 | Progress Note ---
Assessment and Plan - Patient Problems (1) Neoplasm of uncertain behavior of skin Current Visit: Yes Status: Acute Plan to address problem: Pt stable. No new issues. Procedure, risks, benefits were discussed. All questions were answered. Consent was obtained. Will place preop orders in system. He is on the add-on list for surgery tomorrow afternoon. Please call with questions. time=10min Subjective Date of service: 11/01/18 Patient Reports: Positive: feels better, tolerating liquids well. Negative: nausea, vomiting Objective Vital Signs - 12hr 10/31/18 11/01/18 11/01/18 23:25 00:03 00:06 Temperature 97.6 F 98.1 F 98.1 F Pulse Rate 72 68 Pulse Rate [ Anterior Bilateral Throughout] Respiratory 24 24 24 Rate Respiratory Rate [Anterior Bilateral Throughout] Blood Pressure 72/46 79/46 Blood Pressure 79/46 [Left] O2 Sat by Pulse 100 100 Oximetry 11/01/18 11/01/18 11/01/18 01:57 04:17 07:15 Temperature 98.1 F 98.2 F Pulse Rate 73 71 Pulse Rate [ Anterior Bilateral Throughout] Respiratory 24 20 18 Rate Respiratory Rate [Anterior Bilateral Throughout] Blood Pressure 71/47 80/50 72/48 Blood Pressure [Left] O2 Sat by Pulse 99 100 Oximetry 11/01/18 11/01/18 11/01/18 07:43 07:50 07:55 Temperature Pulse Rate 116 H Pulse Rate [ 84 Anterior Bilateral Throughout] Respiratory Rate Respiratory 18 Rate [Anterior Bilateral Throughout] Blood Pressure Blood Pressure [Left] O2 Sat by Pulse 95 97 Oximetry 11/01/18 08:00 Temperature Pulse Rate Pulse Rate [ 86 Anterior Bilateral Throughout] Respiratory Rate Respiratory 18 Rate [Anterior Bilateral Throughout] Blood Pressure Blood Pressure [Left] O2 Sat by Pulse Oximetry - General physical appearance no distress, no pain, other (looks a little better) - Respiratory normal expansion, normal respiratory effort - Labs 11/01/18 06:10 11/01/18 06:10 Diabetes panel 11/01/18 Range/Units 06:10 Sodium 134 L (137-145) mmol/L Potassium 4.0 D (3.6-5.0) mmol/L Chloride 101.5 (98-107) mmol/L Carbon Dioxide 19 L (22-30) mmol/L BUN 11 (9-20) mg/dL Creatinine 0.6 L (0.8-1.5) mg/dL Glucose 83 (75-100) mg/dL Calcium 8.7 (8.4-10.2) mg/dL Calcium panel 11/01/18 Range/Units 06:10 Calcium 8.7 (8.4-10.2) mg/dL Pituitary panel 11/01/18 Range/Units 06:10 Sodium 134 L (137-145) mmol/L Potassium 4.0 D (3.6-5.0) mmol/L Chloride 101.5 (98-107) mmol/L Carbon Dioxide 19 L (22-30) mmol/L BUN 11 (9-20) mg/dL Creatinine 0.6 L (0.8-1.5) mg/dL Glucose 83 (75-100) mg/dL Calcium 8.7 (8.4-10.2) mg/dL Adrenal panel 11/01/18 Range/Units 06:10 Sodium 134 L (137-145) mmol/L Potassium 4.0 D (3.6-5.0) mmol/L Chloride 101.5 (98-107) mmol/L Carbon Dioxide 19 L (22-30) mmol/L BUN 11 (9-20) mg/dL Creatinine 0.6 L (0.8-1.5) mg/dL Glucose 83 (75-100) mg/dL Calcium 8.7 (8.4-10.2) mg/dL
[2018-11-01] MEDS: VANCOMYCIN/NS 500 MG/100 ML 500 MG/100 ML BAG IV SCH ×2 (11:27→22:54)
--- NOTE | 2018-11-01 12:13 | Progress Note ---
Assessment and Plan Assessment and plan: Abscess on the chest, with mass likely malignancy - ED drained, abscess, but there is a big mass there - Surgery consulted and will do biopsy on Friday Sepsis with hypotension; patient is very skinny and i doubt the BP cuff is fit to him - Patient is on IV vancomycin and cefepime - Continue IV fluids - Monitor blood pressure - Follow cultures Patient has history of previous malignancy, resection of part of the lung Severe malnutrition - Nutrition consult DVT prophylaxis Disposition - Continue inpatient care History Interval history: Patient was seen and evaluated this morning, patient, didn't have any complaints. Hospitalist Physical - Physical exam Narrative exam: Not in cardiopulmonary distress. The patient is emaciated Vital signs as documented. Head exam is unremarkable. No scleral icterus . Neck is without jugular venous distension, thyromegaly, or carotid bruits. Chest there is a mass on the right side of the chest, oozing blood. Lungs are clear to auscultation. Cardiac exam reveals regular rate and Rhythm. Abdominal exam reveals normal bowel sounds, no masses, no organomegaly and no aortic enlargement. Extremities are nonedematous and both femoral and pedal pulses are normal. 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 - Constitutional Vitals: Temp Pulse Resp BP Pulse Ox 98.2 F 78 18 72/48 97 11/01/18 07:15 11/01/18 11:33 11/01/18 11:33 11/01/18 07:15 11/01/18 07:55 Results - Labs CBC & Chem 7: 11/01/18 06:10 11/01/18 06:10 Labs: Laboratory Last Values WBC 12.0 K/mm3 (4.5-11.0) H 11/01/18 06:10 RBC 3.32 M/mm3 (3.65-5.03) L 11/01/18 06:10 Hgb 10.5 gm/dl (11.8-15.2) L 11/01/18 06:10 Hct 32.9 % (35.5-45.6) L 11/01/18 06:10 MCV 99 fl (84-94) H 11/01/18 06:10 MCH 32 pg (28-32) 11/01/18 06:10 MCHC 32 % (32-34) 11/01/18 06:10 RDW 15.3 % (13.2-15.2) H 11/01/18 06:10 Plt Count 276 K/mm3 (140-440) 11/01/18 06:10 Lymph % (Auto) 19.0 % (13.4-35.0) 11/01/18 06:10 [place] % (Auto) 9.6 % (0.0-7.3) H 11/01/18 06:10 Eos % (Auto) 0.0 % (0.0-4.3) 11/01/18 06:10 Baso % (Auto) 0.5 % (0.0-1.8) 11/01/18 06:10 Lymph # 2.3 K/mm3 (1.2-5.4) 11/01/18 06:10 [place] # 1.1 K/mm3 (0.0-0.8) H 11/01/18 06:10 Eos # 0.0 K/mm3 (0.0-0.4) 11/01/18 06:10 Baso # 0.1 K/mm3 (0.0-0.1) 11/01/18 06:10 Add Manual Diff Complete 10/31/18 00:24 Total Counted 100 10/31/18 00:24 Seg Neutrophils % 70.9 % (40.0-70.0) H 11/01/18 06:10 Seg Neuts % (Manual) 92.0 % (40.0-70.0) H 10/31/18 00:24 Band Neutrophils % 0 % 10/31/18 00:24 Lymphocytes % (Manual) 5.0 % (13.4-35.0) L 10/31/18 00:24 Reactive Lymphs % (Man) 0 % 10/31/18 00:24 Monocytes % (Manual) 3.0 % (0.0-7.3) 10/31/18 00:24 Eosinophils % (Manual) 0 % (0.0-4.3) 10/31/18 00:24 Basophils % (Manual) 0 % (0.0-1.8) 10/31/18 00:24 Metamyelocytes % 0 % 10/31/18 00:24 Myelocytes % 0 % 10/31/18 00:24 Promyelocytes % 0 % 10/31/18 00:24 Blast Cells % 0 % 10/31/18 00:24 Nucleated RBC % Not Reportable 10/31/18 00:24 Seg Neutrophils # 8.5 K/mm3 (1.8-7.7) H 11/01/18 06:10 Seg Neutrophils # Man 24.8 K/mm3 (1.8-7.7) H 10/31/18 00:24 Band Neutrophils # 0.0 K/mm3 10/31/18 00:24 Lymphocytes # (Manual) 1.4 K/mm3 (1.2-5.4) 10/31/18 00:24 Abs React Lymphs (Man) 0.0 K/mm3 10/31/18 00:24 Monocytes # (Manual) 0.8 K/mm3 (0.0-0.8) 10/31/18 00:24 Eosinophils # (Manual) 0.0 K/mm3 (0.0-0.4) 10/31/18 00:24 Basophils # (Manual) 0.0 K/mm3 (0.0-0.1) 10/31/18 00:24 Metamyelocytes # 0.0 K/mm3 10/31/18 00:24 Myelocytes # 0.0 K/mm3 10/31/18 00:24 Promyelocytes # 0.0 K/mm3 10/31/18 00:24 Blast Cells # 0.0 K/mm3 10/31/18 00:24 WBC Morphology Not Reportable 10/31/18 00:24 Hypersegmented Neuts Not Reportable 10/31/18 00:24 Hyposegmented Neuts Not Reportable 10/31/18 00:24 Hypogranular Neuts Not Reportable 10/31/18 00:24 Smudge Cells Not Reportable 10/31/18 00:24 Toxic Granulation Not Reportable 10/31/18 00:24 Toxic Vacuolation Not Reportable 10/31/18 00:24 Dohle Bodies Not Reportable 10/31/18 00:24 Pelger-Huet Anomaly Not Reportable 10/31/18 00:24 Terrence Rods Not Reportable 10/31/18 00:24 Platelet Estimate Appears normal 10/31/18 00:24 Clumped Platelets Not Reportable 10/31/18 00:24 Plt Clumps, EDTA Not Reportable 10/31/18 00:24 Large Platelets Not Reportable 10/31/18 00:24 Giant Platelets Not Reportable 10/31/18 00:24 Platelet Satelliting Not Reportable 10/31/18 00:24 Plt Morphology Comment Not Reportable 10/31/18 00:24 RBC Morphology Not Reportable 10/31/18 00:24 Dimorphic RBCs Not Reportable 10/31/18 00:24 Polychromasia Not Reportable 10/31/18 00:24 Hypochromasia Not Reportable 10/31/18 00:24 Poikilocytosis Not Reportable 10/31/18 00:24 Anisocytosis 1+ 10/31/18 00:24 Microcytosis Not Reportable 10/31/18 00:24 Macrocytosis Not Reportable 10/31/18 00:24 Spherocytes Not Reportable 10/31/18 00:24 Pappenheimer Bodies Not Reportable 10/31/18 00:24 Sickle Cells Not Reportable 10/31/18 00:24 Target Cells Not Reportable 10/31/18 00:24 Tear Drop Cells Not Reportable 10/31/18 00:24 Ovalocytes 1+ 10/31/18 00:24 Helmet Cells Rare 10/31/18 00:24 [place] Bodies Not Reportable 10/31/18 00:24 [place] Rings Not Reportable 10/31/18 00:24 [place] Cells 2+ 10/31/18 00:24 Bite Cells Not Reportable 10/31/18 00:24 Crenated Cell Not Reportable 10/31/18 00:24 Elliptocytes 1+ 10/31/18 00:24 Acanthocytes (Spur) Not Reportable 10/31/18 00:24 Rouleaux Not Reportable 10/31/18 00:24 Hemoglobin C Crystals Not Reportable 10/31/18 00:24 Schistocytes Not Reportable 10/31/18 00:24 Malaria parasites Not Reportable 10/31/18 00:24 Lalo Bodies Not Reportable 10/31/18 00:24 Hem Pathologist Commnt No 10/31/18 00:24 Sodium 134 mmol/L (137-145) L 11/01/18 06:10 Potassium 4.0 mmol/L (3.6-5.0) D 11/01/18 06:10 Chloride 101.5 mmol/L (98-107) 11/01/18 06:10 Carbon Dioxide 19 mmol/L (22-30) L 11/01/18 06:10 Anion Gap 18 mmol/L 11/01/18 06:10 BUN 11 mg/dL (9-20) 11/01/18 06:10 Creatinine 0.6 mg/dL (0.8-1.5) L 11/01/18 06:10 Estimated GFR > 60 ml/min 11/01/18 06:10 BUN/Creatinine Ratio 18 % 11/01/18 06:10 Glucose 83 mg/dL (75-100) 11/01/18 06:10 POC Glucose 97 (70-105) 10/30/18 16:30 Lactic Acid 1.70 mmol/L (0.7-2.0) 10/30/18 20:49 Calcium 8.7 mg/dL (8.4-10.2) 11/01/18 06:10 Total Bilirubin 0.40 mg/dL (0.1-1.2) 10/31/18 00:24 AST 19 units/L (5-40) 10/31/18 00:24 ALT 10 units/L (7-56) 10/31/18 00:24 Alkaline Phosphatase 121 units/L (35-129) 10/31/18 00:24 Total Protein 6.5 g/dL (6.3-8.2) 10/31/18 00:24 Albumin 3.4 g/dL (3.9-5) L 10/31/18 00:24 Albumin/Globulin Ratio 1.1 % 10/31/18 00:24 Urine Color Yellow (Yellow) 10/31/18 05:35 Urine Turbidity Slightly-cloudy (Clear) 10/31/18 05:35 Urine pH 5.0 (5.0-7.0) 10/31/18 05:35 Ur Specific [place] 1.017 (1.003-1.030) 10/31/18 05:35 Urine Protein <15 mg/dl mg/dL (Negative) 10/31/18 05:35 Urine Glucose (UA) Neg mg/dL (Negative) 10/31/18 05:35 Urine Ketones Tr mg/dL (Negative) 10/31/18 05:35 Urine Blood Neg (Negative) 10/31/18 05:35 Urine Nitrite Neg (Negative) 10/31/18 05:35 Urine Bilirubin Neg (Negative) 10/31/18 05:35 Urine Urobilinogen < 2.0 mg/dL (<2.0) 10/31/18 05:35 Ur Leukocyte Esterase Neg (Negative) 10/31/18 05:35 Urine WBC (Auto) 8.0 /HPF (0.0-6.0) H 10/31/18 05:35 Urine RBC (Auto) 29.0 /HPF (0.0-6.0) 10/31/18 05:35 U Epithel Cells (Auto) 1.0 /HPF (0-13.0) 10/31/18 05:35 Calcium Oxalate Crystal 1+ 10/31/18 05:35 Hyaline Casts 4 /LPF 10/31/18 05:35 Urine Mucus Few /HPF 10/31/18 05:35 Nutrition/Malnutrition Assess - Dietary Evaluation Nutrition/Malnutrition Findings: Nutrition Notes Start: 10/31/18 15:23 Freq: Status: Active Protocol: Document 10/31/18 15:23 [facility] (Rec: 10/31/18 15:34 [facility] SRW- [id number]) Nutrition Notes Need for Assessment generated from: MD Order publicity agent MST Initial or Follow up Assessment Other Pertinent Diagnosis (R) lateral chest wall abscess Current Diet Cardiac Labs/Tests Na 130 K 5.3 CO2 - 20 Ca 10.7 (10/30/18) Pertinent Medications Questran, Megace, Remeron, MVI with minerals Height 6 ft 3 in Weight 41.7 kg [place] Body Weight (lbs) 196.0 BMI 11.5 Intake Prior to Admission Poor Weight change and time frame Pt says he has lost 20# over the past few months; says he has always been tall and thin Weight Status Emaciated Subjective/Other Information RD consulted for malnutrition; pt also screened for malnutrition risk, chewing difficulty and skin risk ( Cole score: 14). He is from a NH and says that the food served there is usually cold. 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 He wants salt on his meal trays as well. Burn Absent Trauma Absent GI Symptoms None Difficulty In Chewing Food Allergy No Skin Integrity/Comment Cole: 14 Minimum of two criteria Yes Energy Intake (severe) < or equal to 50% Estimated Energy Requirement > or equal to 5 days Interpretation of Weight Loss (severe) >10% in 6 months Body Fat Depletion Moderate depletion (severe) Muscle Mass Moderate Depletion (severe) Fluid Accumulation N/A Reduced Anthropological Linguist Strength N/A (non-severe) Protein-Calorie Malnutrition Severe #1 Nutrition Diagnosis Malnutrition Etiology advanced age, poor PO intake, chronic illness As Evidenced by Signs and Symptoms BMI 11.5, unintentional wt loss, loss of subcutaneous fat , muscle loss, poor PO intake 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 No Is Patient Ambulatory and/or Out of Bed No REE-([facility]-confined to bed) 1491.852 Kcal/Kg value to use for calculation 48 Approximate Energy Requirements Using 2002 kcal/Kg Calculation Used for Recommendations Kcal/kg Additional Notes Pro needs 1.2-1.5g/k-63g/ day Fluid needs 1ml/kcal Nutrition Intervention Change Diet Order: Add mech soft modifier to current diet order; send salt packet on meal trays Add Supplement/Snack (indicate name/kcal Ensure Enlive TID (vanilla) /protein ) Provides kCal: 1,050 Provides Protein (gm) 60 Goal #1 PO intake of meals plus ONS to meet 100% energy and pro needs Goal #2 Wt maintenance and/or gain Anticipated Discharge Needs: Continue high-calorie/high- protein ONS 2-3 times daily for wt maintenance Follow-Up By: 11/02/18 Additional Comments F/U: PO tolerance, intakes ( meals, ONS)
[2018-11-01] MEDS ORDERED: PROVENTIL IH PRN (20:09)
[2018-11-01] MEDS: REMERON SOLUTAB PO SCH (22:57)
[2018-11-02 06:16] LABS: Basophils % (Auto) 0.1 % (0.0-1.8); Eosinophils % (Auto) 0.2 % (0.0-4.3); Hemoglobin 10.8 gm/dl (11.8-15.2); Lymphocytes # (Auto) 1.5 K/mm3 (1.2-5.4); Mean Corpuscular HGB Conc 34 % (32-34); Mean Corpuscular Volume 93 fl (84-94); Monocytes # (Auto) 0.9 K/mm3 (0.0-0.8); Platelet Count 318 K/mm3 (140-440); Red Blood Count 3.43 M/mm3 (3.65-5.03); Red Cell Distribution Width 14.8 % (13.2-15.2)
[2018-11-02 07:03] LABS: BUN/Creatinine Ratio 25; Blood Urea Nitrogen 10 mg/dL (9-20); Calcium 8.6 mg/dL (8.4-10.2); Hemolysis Index 0
--- NOTE | 2018-11-02 08:04 | Hem/Onc Progress Note ---
Assessment and Plan 1. Soft tissue lesion, right lung. Neoplasm versus abscess, seen by surgical team. 2. Bilateral lower lobe nodules, which may be neoplastic. 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 It is not clear if this was lung cancer or sarcoma. The patient is emaciated. 3. History of hypertension. Now, the BP is low. 4. History of loss of weight. 5. History of seizure disorder. There is a plan for biopsy. We will await for pathology. The nursing staff will call the family to find out who the patient's oncologist is. 6. Leukocytosis, likely reactive. 11/02/2018- pt has feeble slurred speech - ? oncologist at ? [place]? will await path - pt is very emaciated - Patient Problems (1) Neoplasm of uncertain behavior of skin Current Visit: Yes Status: Acute Subjective Date of service: 11/02/18 Principal diagnosis: chest mass Interval history: due bx no bleeding Objective - Constitutional Vitals: Last Vital Signs Temp 98.1 F 11/02/18 02:33 Pulse 89 11/02/18 02:33 Resp 18 11/02/18 02:33 BP 88/42 11/02/18 02:33 Pulse Ox 98 11/02/18 02:33 Pain Intensity (0-10): 1/10 (chest) General appearance: mild distress Performance status: 4-completely disabled - EENT Eyes: EOM intact ENT: clear oral mucosa Lymph node exam: negative cervical, negative supraclavicular - Respiratory Respiratory effort: Positive: normal Respiratory: bilateral: diminished - Cardiovascular Heart Sounds: Present: S1 & S2 Extremities: No edema - Gastrointestinal General gastrointestinal: Present: soft Rectal Exam: deferred - Genitourinary Male genitourinary: Present: deferred - Integumentary Integumentary: warm - Musculoskeletal Musculoskeletal: strength equal bilaterally - Neurologic Neurologic: moves all extremities - Labs Lab Results: Laboratory Results - last 24 hr 11/02/18 11/02/18 05:00 05:00 WBC 12.9 H RBC 3.43 L Hgb 10.8 L Hct 32.0 L MCV 93 MCH 32 MCHC 34 RDW 14.8 Plt Count 318 Lymph % (Auto) 12.0 L [place] % (Auto) 7.0 Eos % (Auto) 0.2 Baso % (Auto) 0.1 Lymph # 1.5 [place] # 0.9 H Eos # 0.0 Baso # 0.0 Seg Neutrophils % 80.7 H Seg Neutrophils # 10.4 H Sodium 137 Potassium 4.0 Chloride 103.9 Carbon Dioxide 21 L Anion Gap 16 BUN 10 Creatinine 0.4 L Estimated GFR > 60 BUN/Creatinine Ratio 25 Glucose 102 H Calcium 8.6 Medications & Allergies - Medications Allergies/Adverse Reactions: Allergies No Known Allergies Allergy (Verified 08/21/18 19:54) Home Medications: Home Medications Medication Instructions Recorded Confirmed Last Taken Type RX: Lisinopril [Zestril] 20 mg PO DAILY 08/22/18 10/30/18 Unknown History RX: Loperamide HCl [Imodium A-D] 2 mg PO Q6HR PRN 08/22/18 10/30/18 Unknown History RX: Megestrol [Megace] 20 mg PO DAILY 08/22/18 10/30/18 Unknown History RX: Mirtazapine [Remeron] 15 mg PO HS 08/22/18 10/30/18 Unknown History RX: Multivit-Min/Iron Fum/Folic AC 1 each PO DAILY 08/22/18 10/30/18 Unknown History [Fcagr-[id number]-Lmfbfdxv Tablet] RX: Tramadol HCl [Ultram] 50 mg PO Q6H PRN 08/22/18 10/30/18 Unknown History ALBUTEROL NEB's [Proventil] 2.5 mg IH BID PRN 10/30/18 10/30/18 Unknown History Acetaminophen [Tylenol] 500 mg PO Q8HR PRN 10/30/18 10/30/18 Unknown History Budesonide [Pulmicort] 0.5 mg IH Q12HR PRN 10/30/18 10/30/18 Unknown History Cholestyramine (with Sugar) 4 gm PO DAILY 10/30/18 10/30/18 Unknown History [Questran Powder] Pantoprazole [Protonix] 40 mg PO QDAY 10/30/18 10/30/18 Unknown History Saccharomyces Boulardii [Florastor] 250 mg PO BID PRN 10/30/18 10/30/18 Unknown History levETIRAcetam [Keppra TAB] 500 mg PO BID 10/30/18 10/30/18 Unknown History Active Medications: Generic Name Dose Route Start Last Admin Trade Name Freq PRN Reason Stop Dose Admin Acetaminophen 650 mg 10/31/18 00:14 Tylenol PO Q4H PRN Pain MILD(1-3)/Fever >100.5/PINA Albuterol 2.5 mg 11/01/18 20:09 Proventil IH Q4HRT PRN Shortness Of Breath Albuterol/Ipratropium 1 ampul 11/02/18 08:00 Duoneb *Not For Prn Use* IH TIDRT SERGIO Budesonide 0.5 mg 11/02/18 08:00 Pulmicort IH Q12HR SERGIO Cholestyramine Resin 4 gm 10/31/18 10:00 11/01/18 09:11 Questran PO 4 gm DAILY SERGIO Administration Famotidine 20 mg 11/01/18 10:00 11/01/18 09:12 Pepcid IV 20 mg DAILY SERGIO Administration Hydromorphone HCl 0.5 mg 10/31/18 00:14 Dilaudid IV Q3H PRN Pain , Severe (7-10) Sodium Chloride 1,000 mls @ 75 mls/hr 10/31/18 01:00 11/01/18 05:46 Nacl 0.9% 1000 Ml IV 42 mls/hr DIRECT SERGIO Administration Sodium Chloride 1,000 mls @ 999 mls/hr 11/01/18 09:00 Nacl 0.9% 1000 Ml IV DIRECT SERGIO Cefepime HCl 2 gm in 100 mls @ 200 mls/hr 11/01/18 10:00 11/01/18 09:19 Maxipime/Ns 2 Gm/100 Ml IV 200 mls/hr Q24HR SERGIO Administration Protocol Vancomycin HCl 500 mg in 100 mls @ 66.667 mls/hr 11/01/18 10:00 11/01/18 22:54 Vancomycin/Ns 500 Mg/100 Ml IV 66.667 mls/hr Q12H SERGIO Administration Levetiracetam 500 mg 10/31/18 22:30 11/01/18 22:58 Keppra PO 500 mg BID SERGIO Administration Lisinopril 20 mg 10/31/18 10:00 11/01/18 09:21 Zestril PO Not Given DAILY SERGIO Loperamide HCl 2 mg 10/31/18 02:46 Imodium PO Q6H PRN Diarrhea Megestrol Acetate 20 mg 10/31/18 10:00 11/01/18 09:11 Megace PO 20 mg DAILY SERGIO Administration Metoclopramide HCl 10 mg 10/31/18 00:14 Reglan IV Q6H PRN Nausea And Vomiting Mirtazapine 15 mg 10/31/18 22:00 11/01/18 22:57 Remeron Solutab PO 15 mg HS SERGIO Administration Miscellaneous Medication 250 mg 10/31/18 00:11 Saccharomyces Boulardii [Florastor] PO BID PRN Diarrhea Multivitamins/Minerals 1 each 10/31/18 10:00 11/01/18 09:12 Theragran-M Tab PO 1 each QDAY SERGIO Administration Ondansetron HCl 4 mg 10/31/18 00:14 Zofran IV Q8H PRN Nausea And Vomiting Pantoprazole Sodium 40 mg 10/31/18 10:00 11/01/18 09:11 Protonix PO 40 mg QDAY SERGIO Administration Sodium Chloride 10 ml 10/31/18 10:00 11/01/18 23:02 Sodium Chloride Flush Syringe 10 Ml IV 10 ml BID SERGIO Administration Sodium Chloride 10 ml 10/31/18 00:14 10/31/18 02:54 Sodium Chloride Flush Syringe 10 Ml IV 10 ml PRN PRN Administration LINE FLUSH Tramadol HCl 50 mg 10/31/18 00:11 Ultram PO Q6H PRN Pain, Moderate (4-6)
[2018-11-02] MEDS: PEPCID IV SCH (08:59)
[2018-11-02] MEDS: VANCOMYCIN/NS 500 MG/100 ML 500 MG/100 ML BAG IV SCH ×2 (08:59→22:00)
[2018-11-02] MEDS: KEPPRA PO SCH ×2 (08:59→22:00)
[2018-11-02] MEDS: MEGACE PO SCH (09:00)
[2018-11-02] MEDS: PROTONIX PO SCH (09:00)
[2018-11-02] MEDS: THERAGRAN-M Tab PO SCH (09:00)
[2018-11-02] MEDS: SODIUM CHLORIDE FLUSH SYRINGE 10 ML IV SCH (09:00)
[2018-11-02] MEDS: ZESTRIL PO SCH (09:00)
[2018-11-02] MEDS: QUESTRAN PO SCH (09:00)
[2018-11-02] MEDS: PULMICORT IH SCH ×2 (09:31→20:21)
[2018-11-02] MEDS: DUONEB *Not for PRN Use IH SCH ×3 (09:31→20:20)
--- NOTE | 2018-11-02 09:54 | Anesthesia Consultation ---
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
--- NOTE | 2018-11-02 09:57 | Anesthesia Day of Surgery ---
Anesthesia Day of Surgery - Day of Surgery Patient Examined: Yes Patient H&P Reviewed: Yes Patient is NPO: Yes
[2018-11-02] MEDS: MAXIPIME/NS 2 GM/100 ML 2 GM/100 ML BAG IV SCH (10:18)
[2018-11-02] MEDS ORDERED: XYLOCAINE MPF 2% ONE (13:24)
[2018-11-02] MEDS ORDERED: SUBLIMAZE ONE (13:24)
[2018-11-02] MEDS ORDERED: VERSED ONE (13:25)
[2018-11-02] MEDS ORDERED: DIPRIVAN 10 MG/ML IV ONE (13:25)
[2018-11-02] MEDS ORDERED: MARCAINE 0.5% INFILTRATI ONE (13:28)
[2018-11-02] MEDS ORDERED: XYLOCAINE 1% 20 mL ONE (13:28)
[2018-11-02] MEDS ORDERED: KETALAR ONE (13:31)
[2018-11-02] MEDS ORDERED: MARCAINE-EPI/PF 0.5%-1:200,000 INFILTRATI ONE (13:36)
[2018-11-02] MEDS ORDERED: NACL 0.9% IR ONE (13:59)
[2018-11-02] MEDS ORDERED: XYLOCAINE 1% 20 mL INFILTRATI ONE ×2 (13:59)
[2018-11-02] MEDS ORDERED: MARCAINE-EPI 0.5%-1:200,000 INFILTRATI ONE ×2 (13:59)
--- NOTE | 2018-11-02 14:43 | Post Operative Note ---
Date of procedure: 11/02/18 (dictation:[id number]) Pre-op diagnosis: right chest wall mass Post-op diagnosis: same Findings: mass was combination of solid and necrotic tumor. No infection was seen. Procedure: Incisional biopsy of right chest wall mass Anesthesia: MAC Surgeon: QUINCY GALVAN Estimated blood loss: 50-100ml Pathology: list (mass biopsy) Specimen disposition: to lab Condition: stable Disposition: PACU
[2018-11-02] MEDS ORDERED: ZOFRAN ODT PO PRN (14:48)
[2018-11-02] MEDS ORDERED: DILAUDID IV PRN (14:48)
[2018-11-02] MEDS ORDERED: D50W (25GM) Syringe IV ONE (15:00)
--- NOTE | 2018-11-02 15:49 | Post Anesthesia Evaluation ---
- Post Anesthesia Evaluation Patient Participated: Yes Airway Patent: Yes Stable Respiratory Function: Yes Temp > 96.8F: Yes Pain Manageable: Yes Adequeate Hydration: Yes Anesthesia Complications: No
--- NOTE | 2018-11-02 16:18 | Progress Note ---
Assessment and Plan Assessment and plan: Abscess on the chest, with mass likely malignancy - ED drained, abscess, but there is a big mass there - Surgery consulted and did surgery and found out solid mass and necrotic tissue Sepsis with hypotension; patient is very skinny and i doubt the BP cuff is fit to him - Patient is on IV vancomycin and cefepime - Continue IV fluids - Monitor blood pressure - Follow cultures Patient has history of previous malignancy, resection of part of the lung Severe malnutrition - Nutrition consult, on ensure DVT prophylaxis Disposition - Continue inpatient care History Interval history: Patient was seen and evaluated this morning, patient, didn't have any complain ts. Hospitalist Physical - Physical exam Narrative exam: Not in cardiopulmonary distress. The patient is emaciated Vital signs as documented. Head exam is unremarkable. No scleral icterus . Neck is without jugular venous distension, thyromegaly, or carotid bruits. Chest there is a mass on the right side of the chest, oozing blood. Lungs are clear to auscultation. Cardiac exam reveals regular rate and Rhythm. Abdominal exam reveals normal bowel sounds, no masses, no organomegaly and no aortic enlargement. Extremities are nonedematous and both femoral and pedal pulses are normal. X RAY PHYSICIAN: Alert and oriented 3. 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 - Constitutional Vitals: Temp Pulse Resp BP Pulse Ox 97.5 F L 68 20 92/53 100 11/02/18 14:42 11/02/18 14:42 11/02/18 14:42 11/02/18 14:42 11/02/18 14:42 Results - Labs CBC & Chem 7: 11/02/18 05:00 11/02/18 05:00 Labs: Laboratory Last Values WBC 12.9 K/mm3 (4.5-11.0) H 11/02/18 05:00 RBC 3.43 M/mm3 (3.65-5.03) L 11/02/18 05:00 Hgb 10.8 gm/dl (11.8-15.2) L 11/02/18 05:00 Hct 32.0 % (35.5-45.6) L 11/02/18 05:00 MCV 93 fl (84-94) 11/02/18 05:00 MCH 32 pg (28-32) 11/02/18 05:00 MCHC 34 % (32-34) 11/02/18 05:00 RDW 14.8 % (13.2-15.2) 11/02/18 05:00 Plt Count 318 K/mm3 (140-440) 11/02/18 05:00 Lymph % (Auto) 12.0 % (13.4-35.0) L 11/02/18 05:00 [place] % (Auto) 7.0 % (0.0-7.3) 11/02/18 05:00 Eos % (Auto) 0.2 % (0.0-4.3) 11/02/18 05:00 Baso % (Auto) 0.1 % (0.0-1.8) 11/02/18 05:00 Lymph # 1.5 K/mm3 (1.2-5.4) 11/02/18 05:00 [place] # 0.9 K/mm3 (0.0-0.8) H 11/02/18 05:00 Eos # 0.0 K/mm3 (0.0-0.4) 11/02/18 05:00 Baso # 0.0 K/mm3 (0.0-0.1) 11/02/18 05:00 Add Manual Diff Complete 10/31/18 00:24 Total Counted 100 10/31/18 00:24 Seg Neutrophils % 80.7 % (40.0-70.0) H 11/02/18 05:00 Seg Neuts % (Manual) 92.0 % (40.0-70.0) H 10/31/18 00:24 Band Neutrophils % 0 % 10/31/18 00:24 Lymphocytes % (Manual) 5.0 % (13.4-35.0) L 10/31/18 00:24 Reactive Lymphs % (Man) 0 % 10/31/18 00:24 Monocytes % (Manual) 3.0 % (0.0-7.3) 10/31/18 00:24 Eosinophils % (Manual) 0 % (0.0-4.3) 10/31/18 00:24 Basophils % (Manual) 0 % (0.0-1.8) 10/31/18 00:24 Metamyelocytes % 0 % 10/31/18 00:24 Myelocytes % 0 % 10/31/18 00:24 Promyelocytes % 0 % 10/31/18 00:24 Blast Cells % 0 % 10/31/18 00:24 Nucleated RBC % Not Reportable 10/31/18 00:24 Seg Neutrophils # 10.4 K/mm3 (1.8-7.7) H 11/02/18 05:00 Seg Neutrophils # Man 24.8 K/mm3 (1.8-7.7) H 10/31/18 00:24 Band Neutrophils # 0.0 K/mm3 10/31/18 00:24 Lymphocytes # (Manual) 1.4 K/mm3 (1.2-5.4) 10/31/18 00:24 Abs React Lymphs (Man) 0.0 K/mm3 10/31/18 00:24 Monocytes # (Manual) 0.8 K/mm3 (0.0-0.8) 10/31/18 00:24 Eosinophils # (Manual) 0.0 K/mm3 (0.0-0.4) 10/31/18 00:24 Basophils # (Manual) 0.0 K/mm3 (0.0-0.1) 10/31/18 00:24 Metamyelocytes # 0.0 K/mm3 10/31/18 00:24 Myelocytes # 0.0 K/mm3 10/31/18 00:24 Promyelocytes # 0.0 K/mm3 10/31/18 00:24 Blast Cells # 0.0 K/mm3 10/31/18 00:24 WBC Morphology Not Reportable 10/31/18 00:24 Hypersegmented Neuts Not Reportable 10/31/18 00:24 Hyposegmented Neuts Not Reportable 10/31/18 00:24 Hypogranular Neuts Not Reportable 10/31/18 00:24 Smudge Cells Not Reportable 10/31/18 00:24 Toxic Granulation Not Reportable 10/31/18 00:24 Toxic Vacuolation Not Reportable 10/31/18 00:24 Dohle Bodies Not Reportable 10/31/18 00:24 Pelger-Huet Anomaly Not Reportable 10/31/18 00:24 Terrence Rods Not Reportable 10/31/18 00:24 Platelet Estimate Appears normal 10/31/18 00:24 Clumped Platelets Not Reportable 10/31/18 00:24 Plt Clumps, EDTA Not Reportable 10/31/18 00:24 Large Platelets Not Reportable 10/31/18 00:24 Giant Platelets Not Reportable 10/31/18 00:24 Platelet Satelliting Not Reportable 10/31/18 00:24 Plt Morphology Comment Not Reportable 10/31/18 00:24 RBC Morphology Not Reportable 10/31/18 00:24 Dimorphic RBCs Not Reportable 10/31/18 00:24 Polychromasia Not Reportable 10/31/18 00:24 Hypochromasia Not Reportable 10/31/18 00:24 Poikilocytosis Not Reportable 10/31/18 00:24 Anisocytosis 1+ 10/31/18 00:24 Microcytosis Not Reportable 10/31/18 00:24 Macrocytosis Not Reportable 10/31/18 00:24 Spherocytes Not Reportable 10/31/18 00:24 Pappenheimer Bodies Not Reportable 10/31/18 00:24 Sickle Cells Not Reportable 10/31/18 00:24 Target Cells Not Reportable 10/31/18 00:24 Tear Drop Cells Not Reportable 10/31/18 00:24 Ovalocytes 1+ 10/31/18 00:24 Helmet Cells Rare 10/31/18 00:24 [place] Bodies Not Reportable 10/31/18 00:24 [place] Rings Not Reportable 10/31/18 00:24 Olvin Cells 2+ 10/31/18 00:24 Bite Cells Not Reportable 10/31/18 00:24 Crenated Cell Not Reportable 10/31/18 00:24 Elliptocytes 1+ 10/31/18 00:24 Acanthocytes (Spur) Not Reportable 10/31/18 00:24 Rouleaux Not Reportable 10/31/18 00:24 Hemoglobin C Crystals Not Reportable 10/31/18 00:24 Schistocytes Not Reportable 10/31/18 00:24 Malaria parasites Not Reportable 10/31/18 00:24 Lalo Bodies Not Reportable 10/31/18 00:24 Hem Pathologist Commnt No 10/31/18 00:24 Sodium 137 mmol/L (137-145) 11/02/18 05:00 Potassium 4.0 mmol/L (3.6-5.0) 11/02/18 05:00 Chloride 103.9 mmol/L (98-107) 11/02/18 05:00 Carbon Dioxide 21 mmol/L (22-30) L 11/02/18 05:00 Anion Gap 16 mmol/L 11/02/18 05:00 BUN 10 mg/dL (9-20) 11/02/18 05:00 Creatinine 0.4 mg/dL (0.8-1.5) L 11/02/18 05:00 Estimated GFR > 60 ml/min 11/02/18 05:00 BUN/Creatinine Ratio 25 % 11/02/18 05:00 Glucose 102 mg/dL (75-100) H 11/02/18 05:00 POC Glucose 155 (70-105) H 11/02/18 15:23 Lactic Acid 1.70 mmol/L (0.7-2.0) 10/30/18 20:49 Calcium 8.6 mg/dL (8.4-10.2) 11/02/18 05:00 Total Bilirubin 0.40 mg/dL (0.1-1.2) 10/31/18 00:24 AST 19 units/L (5-40) 10/31/18 00:24 ALT 10 units/L (7-56) 10/31/18 00:24 Alkaline Phosphatase 121 units/L (35-129) 10/31/18 00:24 Total Protein 6.5 g/dL (6.3-8.2) 10/31/18 00:24 Albumin 3.4 g/dL (3.9-5) L 10/31/18 00:24 Albumin/Globulin Ratio 1.1 % 10/31/18 00:24 Urine Color Yellow (Yellow) 10/31/18 05:35 Urine Turbidity Slightly-cloudy (Clear) 10/31/18 05:35 Urine pH 5.0 (5.0-7.0) 10/31/18 05:35 Ur Specific [place] 1.017 (1.003-1.030) 10/31/18 05:35 Urine Protein <15 mg/dl mg/dL (Negative) 10/31/18 05:35 Urine Glucose (UA) Neg mg/dL (Negative) 10/31/18 05:35 Urine Ketones Tr mg/dL (Negative) 10/31/18 05:35 Urine Blood Neg (Negative) 10/31/18 05:35 Urine Nitrite Neg (Negative) 10/31/18 05:35 Urine Bilirubin Neg (Negative) 10/31/18 05:35 Urine Urobilinogen < 2.0 mg/dL (<2.0) 10/31/18 05:35 Ur Leukocyte Esterase Neg (Negative) 10/31/18 05:35 Urine WBC (Auto) 8.0 /HPF (0.0-6.0) H 10/31/18 05:35 Urine RBC (Auto) 29.0 /HPF (0.0-6.0) 10/31/18 05:35 U Epithel Cells (Auto) 1.0 /HPF (0-13.0) 10/31/18 05:35 Calcium Oxalate Crystal 1+ 10/31/18 05:35 Hyaline Casts 4 /LPF 10/31/18 05:35 Urine Mucus Few /HPF 10/31/18 05:35 Nutrition/Malnutrition Assess - Dietary Evaluation Nutrition/Malnutrition Findings: Nutrition Notes Start: 10/31/18 15:23 Freq: Status: Active Protocol: Document 11/02/18 14:57 RM (Rec: 11/02/18 15:07 RM [email or web address]) Nutrition Notes Initial or Follow up Reassessment Other Pertinent Diagnosis (R) lateral chest wall abscess Current Diet Regular Labs/Tests Reviewed Pertinent Medications Reviewed Height 6 ft 3 in Weight 41.7 kg [place] Body Weight (lbs) 196.0 BMI 11.5 Subjective/Other Information Pt NPO earlier today for biopsy. Regular diet ordered later today. Pt asleep at time of visit. No family present to facilitate assessment. Nurse and tech unsure how much pt has been eating. Recorded PO intakes 25% X 2 meals and 100% of supplement before NPO status. Percent of energy/protein needs met: 44%/82% Burn Absent Trauma Absent #1 Nutrition Diagnosis Malnutrition Diagnosis Progress(for reassessment Continues documentation) Is patient on ventilator? No Is Patient Ambulatory and/or Out of Bed No REE-([facility]-confined to bed) 1491.852 Kcal/Kg value to use for calculation 48 Approximate Energy Requirements Using 2002 kcal/Kg Calculation Used for Recommendations Kcal/kg Additional Notes Pro needs 1.2-1.5g/k-63g/ day Fluid needs 1ml/kcal Nutrition Intervention Change Diet Order: Mech soft; salt packet with each tray Add Supplement/Snack (indicate name/kcal Ensure Enlive TID (vanilla) /protein ) Provides kCal: 1,050 Provides Protein (gm) 60 Goal #1 PO intake of meals plus ONS to meet 100% energy and pro needs Goal #2 Wt maintenance and/or gain Anticipated Discharge Needs: [facility] soft diet Follow-Up By: 11/05/18 Additional Comments Follow for PO and ONS intakes
--- NOTE | 2018-11-02 17:15 | Operative Report ---
PREOPERATIVE DIAGNOSIS: Right chest wall mass. POSTOPERATIVE DIAGNOSIS: Right chest wall mass. PROCEDURE: Incisional biopsy of right chest wall mass. ATTENDING PHYSICIAN: Catalina Smith MD ANESTHESIA: Local MAC. ESTIMATED BLOOD LOSS: About 50 mL. FINDINGS: No evidence of infection was seen. The patient appeared to have a combination of solid and necrotic tumor underneath the skin. Extensive bleeding was seen from the presumed tumor. SPECIMEN: Multiple segments of the tumor and skin were sent of the skin specimen. We cut out approximately a 4 x 1 x 2 cm wedge. DRAINS: None. COMPLICATIONS: None. DISPOSITION: Stable, transferred to Recovery Room. INDICATIONS: This is a 73-year-old male with a history of lung cancer, who was admitted due to concerns of a right chest wall abscess. CT scan was suggestive of a solid mass. I and D had been performed in the Emergency Department with a reported drainage of purulent material; however, on my exam, there was only blood coming from the wound. I think the purulent material is probably liquified tumor. The patient was assessed to be in need of formal biopsy to establish diagnosis and for long-term planning. Of note, palliative care was already being considered for his lung cancer. Procedure, risks, and benefits were discussed with the patient. Risks included but were not limited to infection, bleeding, pain, injury to surrounding structures, possible need for further procedures in the future. The patient understood and consented. Daughter was also updated. OPERATIVE NOTE: The patient was brought to the operating room and placed on table in supine position. After adequate sedation was established, the patient was prepped and draped in usual sterile fashion. Timeout had been called. Mass was marked out. Transverse elliptical incision was marked out. Lidocaine 1% with epinephrine and 0.5% Marcaine was used to anesthetize the surrounding area. Sharp incision was done of the wedge down through the tumor. I was careful not to take it all the way down to the rib cage as the CT suggested that there may already be involvement. I did not want to do so deep and then end up in the pleural space. Therefore, I got enough tissue, so that a tissue diagnosis could be obtained and then further planning could be done. I excised the wedge and some additional tumor tissue just to make sure that we had enough for pathology. Thereafter, hemostasis was achieved with a combination of electrocautery as well as two applications of Jeffrey. Once the bleeding had essentially subsided, I then closed the skin with wide interrupted 4-0 nylon sutures using a timur technique. Prior to complete closure, I instilled more Jeffrey and then closed the wound. Pressure was held for 3 minutes. There was minimal drainage on the dressing. No obvious bleeding was seen. The patient tolerated procedure well. There were no complications. Skin was cleaned and dried. Dressings were placed. I spoke with the daughter at the end of the case. JOB# [id number] CASSANDRA/NEW
[2018-11-02] MEDS: NACL 0.9% 1000 ML 1,000 ML IV SCH (21:18)
[2018-11-02] MEDS: REMERON SOLUTAB PO SCH (22:00)
--- NOTE | 2018-11-03 07:54 | Hem/Onc Progress Note ---
Assessment and Plan 1. Soft tissue lesion, right lung. Neoplasm versus abscess, seen by surgical team. 2. Bilateral lower lobe nodules, which may be neoplastic. 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 It is not clear if this was lung cancer or sarcoma. The patient is emaciated. 3. History of hypertension. Now, the BP is low. 4. History of loss of weight. 5. History of seizure disorder. There is a plan for biopsy. We will await for pathology. The nursing staff will call the family to find out who the patient's oncologist is. 6. Leukocytosis, likely reactive. 11/02/2018- pt has feeble slurred speech - ? oncologist at ? [place]? will await path - pt is very emaciated 11/03 - pt wants to go to hospice he informed that [place] he wsa given an apt to see oncologist but never saw anyone - Patient Problems (1) Neoplasm of uncertain behavior of skin Current Visit: Yes Status: Acute Subjective Date of service: 11/03/18 Principal diagnosis: chest mass Interval history: pt wants to go to hospice Objective - Constitutional Vitals: Last Vital Signs Temp 98.5 F 11/03/18 07:33 Pulse 40 L 11/03/18 07:33 Resp 18 11/03/18 07:33 BP 113/71 11/03/18 07:33 Pulse Ox 99 11/03/18 07:33 Pain Intensity (0-10): 1/10 (chest) General appearance: no acute distress Performance status: 4-completely disabled - EENT Eyes: EOM intact ENT: clear oral mucosa Lymph node exam: negative cervical - Respiratory Respiratory effort: Positive: normal Respiratory: bilateral: diminished - Cardiovascular Heart Sounds: Present: S1 & S2 Extremities: No edema - Gastrointestinal General gastrointestinal: Present: soft Rectal Exam: deferred - Genitourinary Male genitourinary: Present: deferred - Integumentary Integumentary: warm - Musculoskeletal Musculoskeletal: generalized weakness - Neurologic Neurologic: moves all extremities - Labs Lab Results: Laboratory Results - last 24 hr 11/02/18 11/02/18 11/02/18 14:56 14:59 15:23 POC Glucose 45 L 57 L 155 H Medications & Allergies - Medications Allergies/Adverse Reactions: Allergies No Known Allergies Allergy (Verified 08/21/18 19:54) Home Medications: Home Medications Medication Instructions Recorded Confirmed Last Taken Type Lisinopril [Zestril] 20 mg PO DAILY 08/22/18 10/30/18 Unknown History Loperamide HCl [Imodium A-D] 2 mg PO Q6HR PRN 08/22/18 10/30/18 Unknown History Megestrol [Megace] 20 mg PO DAILY 08/22/18 10/30/18 Unknown History Mirtazapine [Remeron] 15 mg PO HS 08/22/18 10/30/18 Unknown History Multivit-Min/Iron Fum/Folic AC 1 each PO DAILY 08/22/18 10/30/18 Unknown History [Ajxmk-Vczpsnq-Vnvthtsi Tablet] Tramadol HCl [Ultram] 50 mg PO Q6H PRN 08/22/18 10/30/18 Unknown History ALBUTEROL NEB's [Proventil] 2.5 mg IH BID PRN 10/30/18 10/30/18 Unknown History Acetaminophen [Tylenol] 500 mg PO Q8HR PRN 10/30/18 10/30/18 Unknown History Budesonide [Pulmicort] 0.5 mg IH Q12HR PRN 10/30/18 10/30/18 Unknown History Cholestyramine (with Sugar) 4 gm PO DAILY 10/30/18 10/30/18 Unknown History [Questran Powder] Pantoprazole [Protonix] 40 mg PO QDAY 10/30/18 10/30/18 Unknown History Saccharomyces Boulardii [Florastor] 250 mg PO BID PRN 10/30/18 10/30/18 Unknown History levETIRAcetam [Keppra TAB] 500 mg PO BID 10/30/18 10/30/18 Unknown History Active Medications: Generic Name Dose Route Start Last Admin Trade Name Freq PRN Reason Stop Dose Admin Acetaminophen 650 mg 10/31/18 00:14 Tylenol PO Q4H PRN Pain MILD(1-3)/Fever >100.5/PINA Albuterol 2.5 mg 11/01/18 20:09 Proventil IH Q4HRT PRN Shortness Of Breath Albuterol/Ipratropium 1 ampul 11/02/18 09:00 11/02/18 20:20 Duoneb *Not For Prn Use* IH 1 ampul TIDRT SERGIO Administration Budesonide 0.5 mg 11/02/18 10:00 11/02/18 20:21 Pulmicort IH 0.5 mg Q12HR SERGIO Administration Cholestyramine Resin 4 gm 10/31/18 10:00 11/02/18 09:00 Questran PO Not Given DAILY SERGIO Famotidine 20 mg 11/01/18 10:00 11/02/18 08:59 Pepcid IV 20 mg DAILY SERGIO Administration Hydromorphone HCl 0.5 mg 10/31/18 00:14 Dilaudid IV Q3H PRN Pain , Severe (7-10) Sodium Chloride 1,000 mls @ 75 mls/hr 10/31/18 01:00 11/02/18 21:18 Nacl 0.9% 1000 Ml IV 42 mls/hr DIRECT SERGIO Administration Sodium Chloride 1,000 mls @ 999 mls/hr 11/01/18 09:00 Nacl 0.9% 1000 Ml IV DIRECT SERGIO Cefepime HCl 2 gm in 100 mls @ 200 mls/hr 11/01/18 10:00 11/02/18 10:18 Maxipime/Ns 2 Gm/100 Ml IV 200 mls/hr Q24HR SERGIO Administration Protocol Vancomycin HCl 750 mg/ Sodium 265 mls @ 166.667 mls/hr 11/03/18 10:00 Chloride IV Q24HR SERGIO Levetiracetam 500 mg 10/31/18 22:30 11/02/18 22:00 Keppra PO 500 mg BID SERGIO Administration Lisinopril 20 mg 10/31/18 10:00 11/02/18 09:00 Zestril PO Not Given DAILY [facility] Loperamide HCl 2 mg 10/31/18 02:46 Imodium PO Q6H PRN Diarrhea Megestrol Acetate 20 mg 10/31/18 10:00 11/02/18 09:00 Megace PO Not Given DAILY [facility] Metoclopramide HCl 10 mg 10/31/18 00:14 Reglan IV Q6H PRN Nausea And Vomiting Mirtazapine 15 mg 10/31/18 22:00 11/02/18 22:00 Remeron Solutab PO 15 mg HS SERGIO Administration Miscellaneous Medication 250 mg 10/31/18 00:11 Saccharomyces Boulardii [Florastor] PO BID PRN Diarrhea Multivitamins/Minerals 1 each 10/31/18 10:00 11/02/18 09:00 Theragran-M Tab PO Not Given QDAY SERGIO Ondansetron HCl 4 mg 10/31/18 00:14 Zofran IV Q8H PRN Nausea And Vomiting Ondansetron HCl 4 mg 11/02/18 14:48 Zofran Odt PO ONCE PRN Nausea And Vomiting Pantoprazole Sodium 40 mg 10/31/18 10:00 11/02/18 09:00 Protonix PO Not Given QDAY SERGIO Sodium Chloride 10 ml 10/31/18 10:00 11/02/18 09:00 Sodium Chloride Flush Syringe 10 Ml IV 10 ml BID SERGIO Administration Sodium Chloride 10 ml 10/31/18 00:14 10/31/18 02:54 Sodium Chloride Flush Syringe 10 Ml IV 10 ml PRN PRN Administration LINE FLUSH Tramadol HCl 50 mg 10/31/18 00:11 Ultram PO Q6H PRN Pain, Moderate (4-6)
[2018-11-03] MEDS: MAXIPIME/NS 2 GM/100 ML 2 GM/100 ML BAG IV SCH (10:48)
[2018-11-03] MEDS: KEPPRA PO SCH ×2 (10:49→22:41)
[2018-11-03] MEDS: THERAGRAN-M Tab PO SCH (10:49)
[2018-11-03] MEDS: QUESTRAN PO SCH (10:49)
[2018-11-03] MEDS: PROTONIX PO SCH (10:50)
[2018-11-03] MEDS: PEPCID IV SCH (10:50)
[2018-11-03] MEDS: MEGACE PO SCH (10:51)
[2018-11-03] MEDS: VANCOMYCIN 750 MG in NACL 0.9% 250ML 250 ML IV SCH (10:58)
[2018-11-03] MEDS: SODIUM CHLORIDE FLUSH SYRINGE 10 ML IV SCH ×3 (11:00→22:41)
[2018-11-03] MEDS: ZESTRIL PO SCH (11:00)
[2018-11-03] MEDS: DUONEB *Not for PRN Use IH SCH ×3 (11:13→21:53)
[2018-11-03] MEDS: PULMICORT IH SCH ×3 (11:14→22:06)
--- NOTE | 2018-11-03 11:44 | Progress Note ---
Assessment and Plan Assessment and plan: Abscess on the chest, with mass likely malignancy - ED drained, abscess, but there is a big mass there - Surgery consulted and did surgery and found out solid mass and necrotic tissue Sepsis with hypotension; - Patient is on IV vancomycin and cefepime - Continue IV fluids - Monitor blood pressure - Follow cultures Patient has history of previous malignancy, resection of part of the lung Severe malnutrition - Nutrition consult, on ensure DVT prophylaxis Disposition - Continue inpatient care History Interval history: Review of systems Constitutional: No fevers, no malaise, no joint pains CVS: No chest pain, no orthopnea, no dyspnea on exertion, no pedal edema GI: No abdominal pain, no diarrhea, no vomiting, no constipation Respiratory: No shortness of breath, no wheezing, no coughing Hospitalist Physical - Physical exam Narrative exam: cachectic HEENT: Moist mucous membranes, extraocular muscles intact, no lymphadenopathy Neck: supple Cardiac: S1-S2 heard Lungs: clear to auscultation bilaterally Abdomen: soft , nontender, nondistended, bowel sounds positive Extremities: no edema clubbing or cyanosis Skin: no rash or lesions Neurologic: no gross focal deficits Psych: calm, and cooperative - Constitutional Vitals: Temp Pulse Resp BP Pulse Ox 98.5 F 85 20 103/65 96 11/03/18 07:33 11/03/18 11:01 11/03/18 08:00 11/03/18 11:00 11/03/18 11:01 Results - Labs CBC & Chem 7: 11/02/18 05:00 11/02/18 05:00 Labs: Laboratory Last Values WBC 12.9 K/mm3 (4.5-11.0) H 11/02/18 05:00 RBC 3.43 M/mm3 (3.65-5.03) L 11/02/18 05:00 Hgb 10.8 gm/dl (11.8-15.2) L 11/02/18 05:00 Hct 32.0 % (35.5-45.6) L 11/02/18 05:00 MCV 93 fl (84-94) 11/02/18 05:00 MCH 32 pg (28-32) 11/02/18 05:00 MCHC 34 % (32-34) 11/02/18 05:00 RDW 14.8 % (13.2-15.2) 11/02/18 05:00 Plt Count 318 K/mm3 (140-440) 11/02/18 05:00 Lymph % (Auto) 12.0 % (13.4-35.0) L 11/02/18 05:00 [place] % (Auto) 7.0 % (0.0-7.3) 11/02/18 05:00 Eos % (Auto) 0.2 % (0.0-4.3) 11/02/18 05:00 Baso % (Auto) 0.1 % (0.0-1.8) 11/02/18 05:00 Lymph # 1.5 K/mm3 (1.2-5.4) 11/02/18 05:00 [place] # 0.9 K/mm3 (0.0-0.8) H 11/02/18 05:00 Eos # 0.0 K/mm3 (0.0-0.4) 11/02/18 05:00 Baso # 0.0 K/mm3 (0.0-0.1) 11/02/18 05:00 Add Manual Diff Complete 10/31/18 00:24 Total Counted 100 10/31/18 00:24 Seg Neutrophils % 80.7 % (40.0-70.0) H 11/02/18 05:00 Seg Neuts % (Manual) 92.0 % (40.0-70.0) H 10/31/18 00:24 Band Neutrophils % 0 % 10/31/18 00:24 Lymphocytes % (Manual) 5.0 % (13.4-35.0) L 10/31/18 00:24 Reactive Lymphs % (Man) 0 % 10/31/18 00:24 Monocytes % (Manual) 3.0 % (0.0-7.3) 10/31/18 00:24 Eosinophils % (Manual) 0 % (0.0-4.3) 10/31/18 00:24 Basophils % (Manual) 0 % (0.0-1.8) 10/31/18 00:24 Metamyelocytes % 0 % 10/31/18 00:24 Myelocytes % 0 % 10/31/18 00:24 Promyelocytes % 0 % 10/31/18 00:24 Blast Cells % 0 % 10/31/18 00:24 Nucleated RBC % Not Reportable 10/31/18 00:24 Seg Neutrophils # 10.4 K/mm3 (1.8-7.7) H 11/02/18 05:00 Seg Neutrophils # Man 24.8 K/mm3 (1.8-7.7) H 10/31/18 00:24 Band Neutrophils # 0.0 K/mm3 10/31/18 00:24 Lymphocytes # (Manual) 1.4 K/mm3 (1.2-5.4) 10/31/18 00:24 Abs React Lymphs (Man) 0.0 K/mm3 10/31/18 00:24 Monocytes # (Manual) 0.8 K/mm3 (0.0-0.8) 10/31/18 00:24 Eosinophils # (Manual) 0.0 K/mm3 (0.0-0.4) 10/31/18 00:24 Basophils # (Manual) 0.0 K/mm3 (0.0-0.1) 10/31/18 00:24 Metamyelocytes # 0.0 K/mm3 10/31/18 00:24 Myelocytes # 0.0 K/mm3 10/31/18 00:24 Promyelocytes # 0.0 K/mm3 10/31/18 00:24 Blast Cells # 0.0 K/mm3 10/31/18 00:24 WBC Morphology Not Reportable 10/31/18 00:24 Hypersegmented Neuts Not Reportable 10/31/18 00:24 Hyposegmented Neuts Not Reportable 10/31/18 00:24 Hypogranular Neuts Not Reportable 10/31/18 00:24 Smudge Cells Not Reportable 10/31/18 00:24 Toxic Granulation Not Reportable 10/31/18 00:24 Toxic Vacuolation Not Reportable 10/31/18 00:24 Dohle Bodies Not Reportable 10/31/18 00:24 Pelger-Huet Anomaly Not Reportable 10/31/18 00:24 Terrence Rods Not Reportable 10/31/18 00:24 Platelet Estimate Appears normal 10/31/18 00:24 Clumped Platelets Not Reportable 10/31/18 00:24 Plt Clumps, EDTA Not Reportable 10/31/18 00:24 Large Platelets Not Reportable 10/31/18 00:24 Giant Platelets Not Reportable 10/31/18 00:24 Platelet Satelliting Not Reportable 10/31/18 00:24 Plt Morphology Comment Not Reportable 10/31/18 00:24 RBC Morphology Not Reportable 10/31/18 00:24 Dimorphic RBCs Not Reportable 10/31/18 00:24 Polychromasia Not Reportable 10/31/18 00:24 Hypochromasia Not Reportable 10/31/18 00:24 Poikilocytosis Not Reportable 10/31/18 00:24 Anisocytosis 1+ 10/31/18 00:24 Microcytosis Not Reportable 10/31/18 00:24 Macrocytosis Not Reportable 10/31/18 00:24 Spherocytes Not Reportable 10/31/18 00:24 Pappenheimer Bodies Not Reportable 10/31/18 00:24 Sickle Cells Not Reportable 10/31/18 00:24 Target Cells Not Reportable 10/31/18 00:24 Tear Drop Cells Not Reportable 10/31/18 00:24 Ovalocytes 1+ 10/31/18 00:24 Helmet Cells Rare 10/31/18 00:24 Lez[place] Bodies Not Reportable 10/31/18 00:24 [place] Rings Not Reportable 10/31/18 00:24 Leroy Cells 2+ 10/31/18 00:24 Bite Cells Not Reportable 10/31/18 00:24 Crenated Cell Not Reportable 10/31/18 00:24 Elliptocytes 1+ 10/31/18 00:24 Acanthocytes (Spur) Not Reportable 10/31/18 00:24 Rouleaux Not Reportable 10/31/18 00:24 Hemoglobin C Crystals Not Reportable 10/31/18 00:24 Schistocytes Not Reportable 10/31/18 00:24 Malaria parasites Not Reportable 10/31/18 00:24 Lalo Bodies Not Reportable 10/31/18 00:24 Hem Pathologist Commnt No 10/31/18 00:24 Sodium 137 mmol/L (137-145) 11/02/18 05:00 Potassium 4.0 mmol/L (3.6-5.0) 11/02/18 05:00 Chloride 103.9 mmol/L (98-107) 11/02/18 05:00 Carbon Dioxide 21 mmol/L (22-30) L 11/02/18 05:00 Anion Gap 16 mmol/L 11/02/18 05:00 BUN 10 mg/dL (9-20) 11/02/18 05:00 Creatinine 0.4 mg/dL (0.8-1.5) L 11/02/18 05:00 Estimated GFR > 60 ml/min 11/02/18 05:00 BUN/Creatinine Ratio 25 % 11/02/18 05:00 Glucose 102 mg/dL (75-100) H 11/02/18 05:00 POC Glucose 155 (70-105) H 11/02/18 15:23 Lactic Acid 1.70 mmol/L (0.7-2.0) 10/30/18 20:49 Calcium 8.6 mg/dL (8.4-10.2) 11/02/18 05:00 Total Bilirubin 0.40 mg/dL (0.1-1.2) 10/31/18 00:24 AST 19 units/L (5-40) 10/31/18 00:24 ALT 10 units/L (7-56) 10/31/18 00:24 Alkaline Phosphatase 121 units/L (35-129) 10/31/18 00:24 Total Protein 6.5 g/dL (6.3-8.2) 10/31/18 00:24 Albumin 3.4 g/dL (3.9-5) L 10/31/18 00:24 Albumin/Globulin Ratio 1.1 % 10/31/18 00:24 Urine Color Yellow (Yellow) 10/31/18 05:35 Urine Turbidity Slightly-cloudy (Clear) 10/31/18 05:35 Urine pH 5.0 (5.0-7.0) 10/31/18 05:35 Ur Specific [place] 1.017 (1.003-1.030) 10/31/18 05:35 Urine Protein <15 mg/dl mg/dL (Negative) 10/31/18 05:35 Urine Glucose (UA) Neg mg/dL (Negative) 10/31/18 05:35 Urine Ketones Tr mg/dL (Negative) 10/31/18 05:35 Urine Blood Neg (Negative) 10/31/18 05:35 Urine Nitrite Neg (Negative) 10/31/18 05:35 Urine Bilirubin Neg (Negative) 10/31/18 05:35 Urine Urobilinogen < 2.0 mg/dL (<2.0) 10/31/18 05:35 Ur Leukocyte Esterase Neg (Negative) 10/31/18 05:35 Urine WBC (Auto) 8.0 /HPF (0.0-6.0) H 10/31/18 05:35 Urine RBC (Auto) 29.0 /HPF (0.0-6.0) 10/31/18 05:35 U Epithel Cells (Auto) 1.0 /HPF (0-13.0) 10/31/18 05:35 Calcium Oxalate Crystal 1+ 10/31/18 05:35 Hyaline Casts 4 /LPF 10/31/18 05:35 Urine Mucus Few /HPF 10/31/18 05:35 Nutrition/Malnutrition Assess - Dietary Evaluation Nutrition/Malnutrition Findings: Nutrition Notes Start: 10/31/18 15:23 Freq: Status: Active Protocol: Document 11/02/18 14:57 RM (Rec: 11/02/18 15:07 RM [id number]) Nutrition Notes Initial or Follow up Reassessment Other Pertinent Diagnosis (R) lateral chest wall abscess Current Diet Regular Labs/Tests Reviewed Pertinent Medications Reviewed Height 6 ft 3 in Weight 41.7 kg [place] Body Weight (lbs) 196.0 BMI 11.5 Subjective/Other Information Pt NPO earlier today for biopsy. Regular diet ordered later today. Pt asleep at time of visit. No family present to facilitate assessment. Nurse and tech unsure how much pt has been eating. Recorded PO intakes 25% X 2 meals and 100% of supplement before NPO status. Percent of energy/protein needs met: 44%/82% Burn Absent Trauma Absent #1 Nutrition Diagnosis Malnutrition Diagnosis Progress(for reassessment Continues documentation) Is patient on ventilator? No Is Patient Ambulatory and/or Out of Bed No REE-([facility]-confined to bed) 1491.852 Kcal/Kg value to use for calculation 48 Approximate Energy Requirements Using 2002 kcal/Kg Calculation Used for Recommendations Kcal/kg Additional Notes Pro needs 1.2-1.5g/k-63g/ day Fluid needs 1ml/kcal Nutrition Intervention Change [facility] salt packet with each tray Add Supplement/Snack (indicate name/kcal Ensure Enlive TID (vanilla) /protein ) Provides kCal: 1,050 Provides Protein (gm) 60 Goal #1 PO intake of meals plus ONS to meet 100% energy and pro needs Goal #2 Wt maintenance and/or gain Anticipated Discharge Needs: [facility] soft diet Follow-Up By: 11/05/18 Additional Comments Follow for PO and ONS intakes
--- NOTE | 2018-11-03 13:32 | Progress Note ---
Assessment and Plan - Patient Problems (1) Neoplasm of uncertain behavior of skin Current Visit: Yes Status: Acute Plan to address problem: Pt stable. s/p right chest wall tumor biopsy - 11/02/18 - POD#1. Pt appears to be doing well after surgery. Path pending. He was focused on what should be done now. I advised that the Oncologist would be the best one to ask. I also suggested that they obtain the medical records and path from [facility] so that the Oncologist will have all the info to give him the best advise. I have placed a request in the system to obtain old records. Please call with questions. time=10min Subjective Date of service: 11/03/18 Patient Reports: Positive: feels better, other (denies pain. Has questions about future plans. ) Objective Vital Signs - 12hr 11/03/18 11/03/18 11/03/18 02:00 07:33 08:00 Temperature 97.6 F 98.5 F Pulse Rate 66 40 L Pulse Rate [ 87 Anterior Bilateral Throughout] Pulse Rate [ 91 H Bilateral] Respiratory 16 18 Rate Respiratory 20 Rate [Anterior Bilateral Throughout] Respiratory 18 Rate [Bilateral ] Blood Pressure 113/71 Blood Pressure 95/58 [Left] O2 Sat by Pulse 97 99 Oximetry 11/03/18 11/03/18 11/03/18 10:00 11:00 11:01 Temperature Pulse Rate 74 85 Pulse Rate [ Anterior Bilateral Throughout] Pulse Rate [ Bilateral] Respiratory Rate Respiratory Rate [Anterior Bilateral Throughout] Respiratory Rate [Bilateral ] Blood Pressure 103/65 Blood Pressure [Left] O2 Sat by Pulse 100 95 Oximetry 11/03/18 11/03/18 13:09 13:16 Temperature 98 F Pulse Rate 65 Pulse Rate [ Anterior Bilateral Throughout] Pulse Rate [ Bilateral] Respiratory Rate Respiratory Rate [Anterior Bilateral Throughout] Respiratory Rate [Bilateral ] Blood Pressure 125/82 Blood Pressure [Left] O2 Sat by Pulse 74 L 96 Oximetry - General physical appearance no distress, no pain, other (looks well. ) - Respiratory normal expansion, normal respiratory effort - Integumentary other (dressing with some drainage. No active bleed. ) - Psychiatric oriented to time, oriented to person, oriented to place - Labs 11/02/18 05:00 11/02/18 05:00
[2018-11-03] MEDS: REMERON SOLUTAB PO SCH (22:41)
[2018-11-03] MEDS: NACL 0.9% 1000 ML 1,000 ML IV SCH (22:42)
[2018-11-03] MEDS: VANCOMYCIN/NS 500 MG/100 ML 500 MG/100 ML BAG IV SCH (23:35)
[2018-11-04] MEDS: DUONEB *Not for PRN Use IH SCH ×3 (07:42→21:22)
[2018-11-04] MEDS: PULMICORT IH SCH ×3 (07:42→21:22)
--- NOTE | 2018-11-04 08:10 | Progress Note ---
Assessment and Plan Assessment and plan: Abscess on the chest, with mass likely malignancy - ED drained, abscess, but there is a big mass there - Surgery consulted and did surgery and found out solid mass and necrotic tissue Sepsis with hypotension; - Patient is on IV vancomycin and cefepime - Continue IV fluids - Monitor blood pressure - Follow cultures Patient has history of previous malignancy, resection of part of the lung Severe malnutrition - Nutrition consult, on ensure DVT prophylaxis Disposition - Continue inpatient care History Interval history: Review of systems Constitutional: No fevers, no malaise, no joint pains CVS: No chest pain, no orthopnea, no dyspnea on exertion, no pedal edema GI: No abdominal pain, no diarrhea, no vomiting, no constipation Respiratory: No shortness of breath, no wheezing, no coughing Hospitalist Physical - Physical exam Narrative exam: cachectic HEENT: Moist mucous membranes, extraocular muscles intact, no lymphadenopathy Neck: supple Cardiac: S1-S2 heard Lungs: clear to auscultation bilaterally Abdomen: soft , nontender, nondistended, bowel sounds positive Extremities: no edema clubbing or cyanosis Skin: no rash or lesions Neurologic: no gross focal deficits Psych: calm, and cooperative - Constitutional Vitals: Temp Pulse Resp BP Pulse Ox 97.9 F 86 18 98/58 93 11/04/18 01:35 11/04/18 01:35 11/04/18 01:35 11/04/18 01:35 11/04/18 01:35 Results - Labs CBC & Chem 7: 11/02/18 05:00 11/02/18 05:00 Labs: Laboratory Last Values WBC 12.9 K/mm3 (4.5-11.0) H 11/02/18 05:00 RBC 3.43 M/mm3 (3.65-5.03) L 11/02/18 05:00 Hgb 10.8 gm/dl (11.8-15.2) L 11/02/18 05:00 Hct 32.0 % (35.5-45.6) L 11/02/18 05:00 MCV 93 fl (84-94) 11/02/18 05:00 MCH 32 pg (28-32) 11/02/18 05:00 MCHC 34 % (32-34) 11/02/18 05:00 RDW 14.8 % (13.2-15.2) 11/02/18 05:00 Plt Count 318 K/mm3 (140-440) 11/02/18 05:00 Lymph % (Auto) 12.0 % (13.4-35.0) L 11/02/18 05:00 Parke % (Auto) 7.0 % (0.0-7.3) 11/02/18 05:00 Eos % (Auto) 0.2 % (0.0-4.3) 11/02/18 05:00 Baso % (Auto) 0.1 % (0.0-1.8) 11/02/18 05:00 Lymph # 1.5 K/mm3 (1.2-5.4) 11/02/18 05:00 Parke # 0.9 K/mm3 (0.0-0.8) H 11/02/18 05:00 Eos # 0.0 K/mm3 (0.0-0.4) 11/02/18 05:00 Baso # 0.0 K/mm3 (0.0-0.1) 11/02/18 05:00 Add Manual Diff Complete 10/31/18 00:24 Total Counted 100 10/31/18 00:24 Seg Neutrophils % 80.7 % (40.0-70.0) H 11/02/18 05:00 Seg Neuts % (Manual) 92.0 % (40.0-70.0) H 10/31/18 00:24 Band Neutrophils % 0 % 10/31/18 00:24 Lymphocytes % (Manual) 5.0 % (13.4-35.0) L 10/31/18 00:24 Reactive Lymphs % (Man) 0 % 10/31/18 00:24 Monocytes % (Manual) 3.0 % (0.0-7.3) 10/31/18 00:24 Eosinophils % (Manual) 0 % (0.0-4.3) 10/31/18 00:24 Basophils % (Manual) 0 % (0.0-1.8) 10/31/18 00:24 Metamyelocytes % 0 % 10/31/18 00:24 Myelocytes % 0 % 10/31/18 00:24 Promyelocytes % 0 % 10/31/18 00:24 Blast Cells % 0 % 10/31/18 00:24 Nucleated RBC % Not Reportable 10/31/18 00:24 Seg Neutrophils # 10.4 K/mm3 (1.8-7.7) H 11/02/18 05:00 Seg Neutrophils # Man 24.8 K/mm3 (1.8-7.7) H 10/31/18 00:24 Band Neutrophils # 0.0 K/mm3 10/31/18 00:24 Lymphocytes # (Manual) 1.4 K/mm3 (1.2-5.4) 10/31/18 00:24 Abs React Lymphs (Man) 0.0 K/mm3 10/31/18 00:24 Monocytes # (Manual) 0.8 K/mm3 (0.0-0.8) 10/31/18 00:24 Eosinophils # (Manual) 0.0 K/mm3 (0.0-0.4) 10/31/18 00:24 Basophils # (Manual) 0.0 K/mm3 (0.0-0.1) 10/31/18 00:24 Metamyelocytes # 0.0 K/mm3 10/31/18 00:24 Myelocytes # 0.0 K/mm3 10/31/18 00:24 Promyelocytes # 0.0 K/mm3 10/31/18 00:24 Blast Cells # 0.0 K/mm3 10/31/18 00:24 WBC Morphology Not Reportable 10/31/18 00:24 Hypersegmented Neuts Not Reportable 10/31/18 00:24 Hyposegmented Neuts Not Reportable 10/31/18 00:24 Hypogranular Neuts Not Reportable 10/31/18 00:24 Smudge Cells Not Reportable 10/31/18 00:24 Toxic Granulation Not Reportable 10/31/18 00:24 Toxic Vacuolation Not Reportable 10/31/18 00:24 Dohle Bodies Not Reportable 10/31/18 00:24 Pelger-Huet Anomaly Not Reportable 10/31/18 00:24 Terrence Rods Not Reportable 10/31/18 00:24 Platelet Estimate Appears normal 10/31/18 00:24 Clumped Platelets Not Reportable 10/31/18 00:24 Plt Clumps, EDTA Not Reportable 10/31/18 00:24 Large Platelets Not Reportable 10/31/18 00:24 Giant Platelets Not Reportable 10/31/18 00:24 Platelet Satelliting Not Reportable 10/31/18 00:24 Plt Morphology Comment Not Reportable 10/31/18 00:24 RBC Morphology Not Reportable 10/31/18 00:24 Dimorphic RBCs Not Reportable 10/31/18 00:24 Polychromasia Not Reportable 10/31/18 00:24 Hypochromasia Not Reportable 10/31/18 00:24 Poikilocytosis Not Reportable 10/31/18 00:24 Anisocytosis 1+ 10/31/18 00:24 Microcytosis Not Reportable 10/31/18 00:24 Macrocytosis Not Reportable 10/31/18 00:24 Spherocytes Not Reportable 10/31/18 00:24 Pappenheimer Bodies Not Reportable 10/31/18 00:24 Sickle Cells Not Reportable 10/31/18 00:24 Target Cells Not Reportable 10/31/18 00:24 Tear Drop Cells Not Reportable 10/31/18 00:24 Ovalocytes 1+ 10/31/18 00:24 Helmet Cells Rare 10/31/18 00:24 [place] Bodies Not Reportable 10/31/18 00:24 Cummings Rings Not Reportable 10/31/18 00:24 Marbury Cells 2+ 10/31/18 00:24 Bite Cells Not Reportable 10/31/18 00:24 Crenated Cell Not Reportable 10/31/18 00:24 Elliptocytes 1+ 10/31/18 00:24 Acanthocytes (Spur) Not Reportable 10/31/18 00:24 Rouleaux Not Reportable 10/31/18 00:24 Hemoglobin C Crystals Not Reportable 10/31/18 00:24 Schistocytes Not Reportable 10/31/18 00:24 Malaria parasites Not Reportable 10/31/18 00:24 Lalo Bodies Not Reportable 10/31/18 00:24 Hem Pathologist Commnt No 10/31/18 00:24 Sodium 137 mmol/L (137-145) 11/02/18 05:00 Potassium 4.0 mmol/L (3.6-5.0) 11/02/18 05:00 Chloride 103.9 mmol/L (98-107) 11/02/18 05:00 Carbon Dioxide 21 mmol/L (22-30) L 11/02/18 05:00 Anion Gap 16 mmol/L 11/02/18 05:00 BUN 10 mg/dL (9-20) 11/02/18 05:00 Creatinine 0.4 mg/dL (0.8-1.5) L 11/02/18 05:00 Estimated GFR > 60 ml/min 11/02/18 05:00 BUN/Creatinine Ratio 25 % 11/02/18 05:00 Glucose 102 mg/dL (75-100) H 11/02/18 05:00 POC Glucose 155 (70-105) H 11/02/18 15:23 Lactic Acid 1.70 mmol/L (0.7-2.0) 10/30/18 20:49 Calcium 8.6 mg/dL (8.4-10.2) 11/02/18 05:00 Total Bilirubin 0.40 mg/dL (0.1-1.2) 10/31/18 00:24 AST 19 units/L (5-40) 10/31/18 00:24 ALT 10 units/L (7-56) 10/31/18 00:24 Alkaline Phosphatase 121 units/L (35-129) 10/31/18 00:24 Total Protein 6.5 g/dL (6.3-8.2) 10/31/18 00:24 Albumin 3.4 g/dL (3.9-5) L 10/31/18 00:24 Albumin/Globulin Ratio 1.1 % 10/31/18 00:24 Urine Color Yellow (Yellow) 10/31/18 05:35 Urine Turbidity Slightly-cloudy (Clear) 10/31/18 05:35 Urine pH 5.0 (5.0-7.0) 10/31/18 05:35 Ur Specific Rosenberg 1.017 (1.003-1.030) 10/31/18 05:35 Urine Protein <15 mg/dl mg/dL (Negative) 10/31/18 05:35 Urine Glucose (UA) Neg mg/dL (Negative) 10/31/18 05:35 Urine Ketones Tr mg/dL (Negative) 10/31/18 05:35 Urine Blood Neg (Negative) 10/31/18 05:35 Urine Nitrite Neg (Negative) 10/31/18 05:35 Urine Bilirubin Neg (Negative) 10/31/18 05:35 Urine Urobilinogen < 2.0 mg/dL (<2.0) 10/31/18 05:35 Ur Leukocyte Esterase Neg (Negative) 10/31/18 05:35 Urine WBC (Auto) 8.0 /HPF (0.0-6.0) H 10/31/18 05:35 Urine RBC (Auto) 29.0 /HPF (0.0-6.0) 10/31/18 05:35 U Epithel Cells (Auto) 1.0 /HPF (0-13.0) 10/31/18 05:35 Calcium Oxalate Crystal 1+ 10/31/18 05:35 Hyaline Casts 4 /LPF 10/31/18 05:35 Urine Mucus Few /HPF 10/31/18 05:35 Nutrition/Malnutrition Assess - Dietary Evaluation Nutrition/Malnutrition Findings: Nutrition Notes Start: 10/31/18 15:23 Freq: Status: Active Protocol: Document 11/02/18 14:57 RM (Rec: 11/02/18 15:07 RM [id number]) Nutrition Notes Initial or Follow up Reassessment Other Pertinent Diagnosis (R) lateral chest wall abscess Current Diet Regular Labs/Tests Reviewed Pertinent Medications Reviewed Height 6 ft 3 in Weight 41.7 kg [place] Body Weight (lbs) 196.0 BMI 11.5 Subjective/Other Information Pt NPO earlier today for biopsy. Regular diet ordered later today. Pt asleep at time of visit. No family present to facilitate assessment. Nurse and tech unsure how much pt has been eating. Recorded PO intakes 25% X 2 meals and 100% of supplement before NPO status. Percent of energy/protein needs met: 44%/82% Burn Absent Trauma Absent #1 Nutrition Diagnosis Malnutrition Diagnosis Progress(for reassessment Continues documentation) Is patient on ventilator? No Is Patient Ambulatory and/or Out of Bed No REE-([facility]-confined to bed) 1491.852 Kcal/Kg value to use for calculation 48 Approximate Energy Requirements Using 2002 kcal/Kg Calculation Used for Recommendations Kcal/kg Additional Notes Pro needs 1.2-1.5g/k-63g/ day Fluid needs 1ml/kcal Nutrition Intervention [facility] salt packet with each tray Add Supplement/Snack (indicate name/kcal Ensure Enlive TID (vanilla) /protein ) Provides kCal: 1,050 Provides Protein (gm) 60 Goal #1 PO intake of meals plus ONS to meet 100% energy and pro needs Goal #2 Wt maintenance and/or gain Anticipated Discharge Needs: [facility] soft diet Follow-Up By: 11/05/18 Additional Comments Follow for PO and ONS intakes
--- NOTE | 2018-11-04 08:23 | Discharge Summary ---
Providers - Providers Date of Admission: 10/30/18 16:41 Attending physician: JOHAN PICKARD MD 10/31/18 00:14 Consult to Physician [CONS] Routine Comment: doctor seen patient/marjorie Consulting Provider: AAKASH REINA Physician Instructions: Reason For Exam: Lung Ca 10/31/18 00:17 Consult to Physician [CONS] Routine Comment: called answ. serv. /marjorie Consulting Provider: QUINCY GALVAN Physician Instructions: Reason For Exam: Abscess Rt lateral chest wall 10/31/18 12:55 Consult to Dietitian/Nutrition [CONS] Routine Physician Instructions: Reason For Exam: Reason for Consult: Malnutrition 11/02/18 06:27 Consult to Wound/ET Nurse [CONS] Urgent Reason For Exam: wound eval Primary care physician: SUPPLY CHAIN TECH Hospitalization Condition: Fair Disposition: DC-30 STILL A PATIENT Core Measure Documentation - Palliative Care Palliative Care/ Comfort Measures: Not Applicable Exam - Constitutional Vitals: Temp Pulse Resp BP Pulse Ox 98.3 F 77 18 113/78 97 11/04/18 08:20 11/04/18 08:20 11/04/18 08:20 11/04/18 08:20 11/04/18 08:20 Plan Follow up with: PRIMARY CAREMD [Primary Care Provider] - 3-5 Days
--- NOTE | 2018-11-04 08:32 | Hem/Onc Progress Note ---
Assessment and Plan 1. Soft tissue lesion, right lung. Neoplasm versus abscess, seen by surgical team. 2. Bilateral lower lobe nodules, which may be neoplastic. 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 It is not clear if this was lung cancer or sarcoma. The patient is emaciated. 3. History of hypertension. Now, the BP is low. 4. History of loss of weight. 5. History of seizure disorder. There is a plan for biopsy. We will await for pathology. The nursing staff will call the family to find out who the patient's oncologist is. 6. Leukocytosis, likely reactive. 11/02/2018- pt has feeble slurred speech - ? oncologist at ? [facility]? 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 hospice an option - mainly due topts performance status - he is emaciated - Patient Problems (1) Neoplasm of uncertain behavior of skin Current Visit: Yes Status: Acute Subjective Date of service: 11/04/18 Principal diagnosis: lung adeno ca Interval history: pt had chest mass biopsy I d/w Dr Smith and daughter Objective - Constitutional Vitals: Last Vital Signs Temp 98.3 F 11/04/18 08:20 Pulse 77 11/04/18 08:20 Resp 18 11/04/18 08:20 BP 113/78 11/04/18 08:20 Pulse Ox 97 11/04/18 08:20 Pain Intensity (0-10): denies any pain General appearance: no acute distress Performance status: 4-completely disabled - EENT Eyes: EOM intact ENT: clear oral mucosa Lymph node exam: negative cervical, negative supraclavicular - Respiratory Respiratory effort: Positive: normal Respiratory: bilateral: diminished - Cardiovascular Heart Sounds: Present: S1 & S2 Extremities: No edema - Gastrointestinal General gastrointestinal: Present: soft, non-tender Rectal Exam: deferred - Genitourinary Male genitourinary: Present: deferred - Integumentary Integumentary: warm - Musculoskeletal Musculoskeletal: generalized weakness - Neurologic Neurologic: moves all extremities Medications & Allergies - Medications Allergies/Adverse Reactions: Allergies No Known Allergies Allergy (Verified 08/21/18 19:54) Home Medications: Home Medications Medication Instructions Recorded Confirmed Last Taken Type Lisinopril [Zestril] 20 mg PO DAILY 08/22/18 10/30/18 Unknown History Loperamide HCl [Imodium A-D] 2 mg PO Q6HR PRN 08/22/18 10/30/18 Unknown History Megestrol [Megace] 20 mg PO DAILY 08/22/18 10/30/18 Unknown History Mirtazapine [Remeron] 15 mg PO HS 08/22/18 10/30/18 Unknown History Multivit-Min/Iron Fum/Folic AC 1 each PO DAILY 08/22/18 10/30/18 Unknown History [Gedlw-Ywduhmu-Mdqqekaj Tablet] Tramadol HCl [Ultram] 50 mg PO Q6H PRN 08/22/18 10/30/18 Unknown History ALBUTEROL NEB's [Proventil] 2.5 mg IH BID PRN 10/30/18 10/30/18 Unknown History Acetaminophen [Tylenol] 500 mg PO Q8HR PRN 10/30/18 10/30/18 Unknown History Budesonide [Pulmicort] 0.5 mg IH Q12HR PRN 10/30/18 10/30/18 Unknown History Cholestyramine (with Sugar) 4 gm PO DAILY 10/30/18 10/30/18 Unknown History [Questran Powder] Pantoprazole [Protonix] 40 mg PO QDAY 10/30/18 10/30/18 Unknown History Saccharomyces Boulardii [Florastor] 250 mg PO BID PRN 10/30/18 10/30/18 Unknown History levETIRAcetam [Keppra TAB] 500 mg PO BID 10/30/18 10/30/18 Unknown History Active Medications: Generic Name Dose Route Start Last Admin Trade Name Freq PRN Reason Stop Dose Admin Acetaminophen 650 mg 10/31/18 00:14 Tylenol PO Q4H PRN Pain MILD(1-3)/Fever >100.5/PINA Albuterol 2.5 mg 11/01/18 20:09 Proventil IH Q4HRT PRN Shortness Of Breath Albuterol/Ipratropium 1 ampul 11/02/18 09:00 11/04/18 07:42 Duoneb *Not For Prn Use* IH 1 ampul TIDRT SERGIO Administration Budesonide 0.5 mg 11/02/18 10:00 11/04/18 07:42 Pulmicort IH 0.5 mg Q12HR SERGIO Administration Cholestyramine Resin 4 gm 10/31/18 10:00 11/03/18 10:49 Questran PO 4 gm DAILY SERGIO Administration Famotidine 20 mg 11/01/18 10:00 11/03/18 10:50 Pepcid IV 20 mg DAILY SERGIO Administration Hydromorphone HCl 0.5 mg 10/31/18 00:14 Dilaudid IV Q3H PRN Pain , Severe (7-10) Sodium Chloride 1,000 mls @ 75 mls/hr 10/31/18 01:00 11/03/18 22:42 Nacl 0.9% 1000 Ml IV 42 mls/hr DIRECT SERGIO Administration Sodium Chloride 1,000 mls @ 999 mls/hr 11/01/18 09:00 Nacl 0.9% 1000 Ml IV DIRECT SERGIO Cefepime HCl 2 gm in 100 mls @ 200 mls/hr 11/01/18 10:00 11/03/18 10:48 Maxipime/Ns 2 Gm/100 Ml IV 200 mls/hr Q24HR SERGIO Administration Protocol Vancomycin HCl 750 mg/ Sodium 265 mls @ 166.667 mls/hr 11/03/18 10:00 11/03/18 10:58 Chloride IV 166.667 mls/hr Q24HR SERGIO Administration Levetiracetam 500 mg 10/31/18 22:30 11/03/18 22:41 Keppra PO 500 mg BID SERGIO Administration Lisinopril 20 mg 10/31/18 10:00 11/03/18 11:00 Zestril PO Not Given DAILY SERGIO Loperamide HCl 2 mg 10/31/18 02:46 Imodium PO Q6H PRN Diarrhea Megestrol Acetate 20 mg 10/31/18 10:00 11/03/18 10:51 Megace PO 20 mg DAILY SERGIO Administration Metoclopramide HCl 10 mg 10/31/18 00:14 Reglan IV Q6H PRN Nausea And Vomiting Mirtazapine 15 mg 10/31/18 22:00 11/03/18 22:41 Remeron Solutab PO 15 mg HS SERGIO Administration Miscellaneous Medication 250 mg 10/31/18 00:11 Saccharomyces Boulardii [Florastor] PO BID PRN Diarrhea Multivitamins/Minerals 1 each 10/31/18 10:00 11/03/18 10:49 Theragran-M Tab PO 1 each QDAY SERGIO Administration Ondansetron HCl 4 mg 10/31/18 00:14 Zofran IV Q8H PRN Nausea And Vomiting Ondansetron HCl 4 mg 11/02/18 14:48 Zofran Odt PO ONCE PRN Nausea And Vomiting Pantoprazole Sodium 40 mg 10/31/18 10:00 11/03/18 10:50 Protonix PO 40 mg QDAY SERGIO Administration Sodium Chloride 10 ml 10/31/18 10:00 11/03/18 22:41 Sodium Chloride Flush Syringe 10 Ml IV 10 ml BID SERGIO Administration Sodium Chloride 10 ml 10/31/18 00:14 10/31/18 02:54 Sodium Chloride Flush Syringe 10 Ml IV 10 ml PRN PRN Administration LINE FLUSH Tramadol HCl 50 mg 10/31/18 00:11 Ultram PO Q6H PRN Pain, Moderate (4-6)
[2018-11-04] MEDS: MAXIPIME/NS 2 GM/100 ML 2 GM/100 ML BAG IV SCH (10:09)
[2018-11-04] MEDS: THERAGRAN-M Tab PO SCH (10:12)
[2018-11-04] MEDS: KEPPRA PO SCH ×2 (10:12→23:49)
[2018-11-04] MEDS: VANCOMYCIN 750 MG in NACL 0.9% 250ML 250 ML IV SCH (10:12)
[2018-11-04] MEDS: MEGACE PO SCH (10:13)
[2018-11-04] MEDS: PROTONIX PO SCH (10:13)
[2018-11-04] MEDS: SODIUM CHLORIDE FLUSH SYRINGE 10 ML IV SCH ×2 (10:13→23:49)
[2018-11-04] MEDS: QUESTRAN PO SCH (10:13)
[2018-11-04] MEDS: ZESTRIL PO SCH (10:22)
[2018-11-04] MEDS: NACL 0.9% 1000 ML 1,000 ML IV SCH (10:37)
--- NOTE | 2018-11-04 10:46 | Progress Note ---
Assessment and Plan - Patient Problems (1) Neoplasm of uncertain behavior of skin Current Visit: Yes Status: Acute Plan to address problem: Pt stable. s/p right chest wall tumor biopsy - 11/02/18 - POD#2. Pt appears to be doing well after surgery. Path - Adeno[place] (pulmonary type) Will start routine wound care. Drainage may be liquified tumor or Jeffrey residual. Need to watch for any signs of infection as he is at high risk. If occurs, will remove some stitches. Disposition per Hospitalist. Please call with questions. time=10min Subjective Date of service: 11/04/18 Patient Reports: Positive: pain is less Objective Vital Signs - 12hr 11/04/18 11/04/18 11/04/18 01:35 07:42 08:20 Temperature 97.9 F 98.3 F Pulse Rate 86 77 Pulse Rate [ 96 H Anterior Bilateral Throughout] Pulse Rate [ 93 H Throughout] Respiratory 18 18 Rate Respiratory 16 Rate [Anterior Bilateral Throughout] Respiratory 16 Rate [ Throughout] Blood Pressure Blood Pressure 98/58 113/78 [Left] O2 Sat by Pulse 93 97 Oximetry 11/04/18 11/04/18 11/04/18 08:55 10:20 10:22 Temperature 98.3 F Pulse Rate 98 H Pulse Rate [ Anterior Bilateral Throughout] Pulse Rate [ Throughout] Respiratory 18 Rate Respiratory Rate [Anterior Bilateral Throughout] Respiratory Rate [ Throughout] Blood Pressure 94/56 94/56 Blood Pressure [Left] O2 Sat by Pulse 97 100 Oximetry - General physical appearance no distress, no pain - Integumentary other (minimal drainage on dressing. No erythema. Mass present (tumor). No active drainage. Nothing expressed. ) - Labs 11/02/18 05:00 11/02/18 05:00
[2018-11-05] MEDS: REMERON SOLUTAB PO SCH ×2 (00:15→23:03)
[2018-11-05] MEDS: NACL 0.9% 1000 ML 1,000 ML IV SCH (05:41)
[2018-11-05] MEDS: PULMICORT IH SCH ×4 (07:16→21:32)
[2018-11-05] MEDS: DUONEB *Not for PRN Use IH SCH ×3 (07:17→20:00)
--- NOTE | 2018-11-05 07:48 | Hem/Onc Progress Note ---
Assessment and Plan 1. Soft tissue lesion, right lung. Neoplasm versus abscess, seen by surgical team. 2. Bilateral lower lobe nodules, which may be neoplastic. 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 It is not clear if this was lung cancer or sarcoma. The patient is emaciated. 3. History of hypertension. Now, the BP is low. 4. History of loss of weight. 5. History of seizure disorder. There is a plan for biopsy. We will await for pathology. The nursing staff will call the family to find out who the patient's oncologist is. 6. Leukocytosis, likely reactive. 11/02/2018- pt has feeble slurred speech - ? oncologist at ? [facility]? 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 - Patient Problems (1) Neoplasm of uncertain behavior of skin Current Visit: Yes Status: Acute Subjective Date of service: 11/05/18 Principal diagnosis: lung ca Interval history: bx report - adeno - d/w daughter Objective - Constitutional Vitals: Last Vital Signs Temp 99.3 F 11/05/18 03:19 Pulse 82 11/05/18 07:29 Resp 18 11/05/18 07:29 BP 103/58 11/05/18 03:19 Pulse Ox 100 11/05/18 07:15 Pain Intensity (0-10): denies any pain General appearance: no acute distress Performance status: 4-completely disabled - EENT Eyes: EOM intact ENT: clear oral mucosa Lymph node exam: negative cervical, negative supraclavicular - Respiratory Respiratory effort: Positive: normal Respiratory: bilateral: diminished - Cardiovascular Heart Sounds: Present: S1 & S2 Extremities: No edema - Gastrointestinal General gastrointestinal: Present: soft, non-tender Rectal Exam: deferred - Genitourinary Male genitourinary: Present: deferred - Integumentary Integumentary: warm - Musculoskeletal Musculoskeletal: generalized weakness - Neurologic Neurologic: moves all extremities Medications & Allergies - Medications Allergies/Adverse Reactions: Allergies No Known Allergies Allergy (Verified 08/21/18 19:54) Home Medications: Home Medications Medication Instructions Recorded Confirmed Last Taken Type Lisinopril [Zestril] 20 mg PO DAILY 08/22/18 10/30/18 Unknown History Loperamide HCl [Imodium A-D] 2 mg PO Q6HR PRN 08/22/18 10/30/18 Unknown History Megestrol [Megace] 20 mg PO DAILY 08/22/18 10/30/18 Unknown History Mirtazapine [Remeron] 15 mg PO HS 08/22/18 10/30/18 Unknown History Multivit-Min/Iron Fum/Folic AC 1 each PO DAILY 08/22/18 10/30/18 Unknown History [Moose-Fpeaaoq-Spmmbqik Tablet] Tramadol HCl [Ultram] 50 mg PO Q6H PRN 08/22/18 10/30/18 Unknown History ALBUTEROL NEB's [Proventil] 2.5 mg IH BID PRN 10/30/18 10/30/18 Unknown History Acetaminophen [Tylenol] 500 mg PO Q8HR PRN 10/30/18 10/30/18 Unknown History Budesonide [Pulmicort] 0.5 mg IH Q12HR PRN 10/30/18 10/30/18 Unknown History Cholestyramine (with Sugar) 4 gm PO DAILY 10/30/18 10/30/18 Unknown History [Questran Powder] Pantoprazole [Protonix] 40 mg PO QDAY 10/30/18 10/30/18 Unknown History Saccharomyces Boulardii [Florastor] 250 mg PO BID PRN 10/30/18 10/30/18 Unknown History levETIRAcetam [Keppra TAB] 500 mg PO BID 10/30/18 10/30/18 Unknown History Active Medications: Generic Name Dose Route Start Last Admin Trade Name Freq PRN Reason Stop Dose Admin Acetaminophen 650 mg 10/31/18 00:14 Tylenol PO Q4H PRN Pain MILD(1-3)/Fever >100.5/PINA Albuterol 2.5 mg 11/01/18 20:09 Proventil IH Q4HRT PRN Shortness Of Breath Albuterol/Ipratropium 1 ampul 11/02/18 09:00 11/05/18 07:17 Duoneb *Not For Prn Use* IH 1 ampul TIDRT SERGIO Administration Budesonide 0.5 mg 11/02/18 10:00 11/05/18 07:16 Pulmicort IH 0.5 mg Q12HR SERGIO Administration Cholestyramine Resin 4 gm 10/31/18 10:00 11/04/18 10:13 Questran PO 4 gm DAILY SERGIO Administration Hydromorphone HCl 0.5 mg 10/31/18 00:14 Dilaudid IV Q3H PRN Pain , Severe (7-10) Sodium Chloride 1,000 mls @ 75 mls/hr 10/31/18 01:00 11/05/18 05:41 Nacl 0.9% 1000 Ml IV 75 mls/hr DIRECT SERGIO Administration Sodium Chloride 1,000 mls @ 999 mls/hr 11/01/18 09:00 Nacl 0.9% 1000 Ml IV DIRECT SERGIO Cefepime HCl 2 gm in 100 mls @ 200 mls/hr 11/01/18 10:00 11/04/18 10:09 Maxipime/Ns 2 Gm/100 Ml IV 200 mls/hr Q24HR SERGIO Administration Protocol Vancomycin HCl 750 mg/ Sodium 265 mls @ 166.667 mls/hr 11/03/18 10:00 11/04/18 10:12 Chloride IV 166.667 mls/hr Q24HR SERGIO Administration Levetiracetam 500 mg 10/31/18 22:30 11/04/18 23:49 Keppra PO 500 mg BID SERGIO Administration Lisinopril 20 mg 10/31/18 10:00 11/04/18 10:22 Zestril PO Not Given DAILY SERGIO Loperamide HCl 2 mg 10/31/18 02:46 Imodium PO Q6H PRN Diarrhea Megestrol Acetate 20 mg 10/31/18 10:00 11/04/18 10:13 Megace PO 20 mg DAILY SERGIO Administration Metoclopramide HCl 10 mg 10/31/18 00:14 Reglan IV Q6H PRN Nausea And Vomiting Mirtazapine 15 mg 10/31/18 22:00 11/05/18 00:15 Remeron Solutab PO 15 mg HS SERGIO Administration Miscellaneous Medication 250 mg 10/31/18 00:11 Saccharomyces Boulardii [Florastor] PO BID PRN Diarrhea Multivitamins/Minerals 1 each 10/31/18 10:00 11/04/18 10:12 Theragran-M Tab PO 1 each QDAY SERGIO Administration Ondansetron HCl 4 mg 10/31/18 00:14 Zofran IV Q8H PRN Nausea And Vomiting Pantoprazole Sodium 40 mg 10/31/18 10:00 11/04/18 10:13 Protonix PO 40 mg QDAY SERGIO Administration Sodium Chloride 10 ml 10/31/18 10:00 11/04/18 23:49 Sodium Chloride Flush Syringe 10 Ml IV 10 ml BID SERGIO Administration Sodium Chloride 10 ml 10/31/18 00:14 10/31/18 02:54 Sodium Chloride Flush Syringe 10 Ml IV 10 ml PRN PRN Administration LINE FLUSH Tramadol HCl 50 mg 10/31/18 00:11 Ultram PO Q6H PRN Pain, Moderate (4-6)
[2018-11-05] MEDS: MAXIPIME/NS 2 GM/100 ML 2 GM/100 ML BAG IV SCH (09:14)
[2018-11-05] MEDS: KEPPRA PO SCH ×2 (09:15→23:03)
[2018-11-05] MEDS: THERAGRAN-M Tab PO SCH (09:15)
[2018-11-05] MEDS: QUESTRAN PO SCH (09:16)
[2018-11-05] MEDS: MEGACE PO SCH (09:16)
[2018-11-05] MEDS: PROTONIX PO SCH (09:16)
[2018-11-05] MEDS: ZESTRIL PO SCH (09:17)
[2018-11-05] MEDS: SODIUM CHLORIDE FLUSH SYRINGE 10 ML IV SCH (09:17)
[2018-11-05] MEDS: VANCOMYCIN 750 MG in NACL 0.9% 250ML 250 ML IV SCH (09:22)
--- NOTE | 2018-11-05 10:03 | Progress Note ---
Assessment and Plan Assessment and plan: 73-year-old man who [facility] He was brought in because of a mass on the right side of his chest. The patient's has chronic shortness of breath and chronically has trouble talking and expressing himself. He was first thought to be an abscess, but a biopsy was done by surgery, and was found to be a mass with necrotic tissue. It was biopsied, pathology pending. The patient received empiric antibiotics at first, on solid mass was ruled to not be an abscess. The antibiotics were discontinued. -He had a positive blood culture which grew diphtheroids, ID consult appreciate d, likely a contaminant, no further w/o or rx recommended -Septic shock was ruled out, the blood pressure cuff was too large for his size. He received IV fluids. He received dietitian consult for malnutrition. 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, he is too weak to walk, will need improved functional status before he can be offered chemo, he would like to fup with Oncology upon dc -patient would like to be placed in a different SNF, awaiting placement, he wants snf with hospice, he understands that he must withdraw from hospice to get chemo if he is able to do so in the future Diagnosis Left chest mass hx of of cancer severe malnutrition sepsis ruled out septic shock ruled out Diptheroid bactermia History Interval history: Review of systems Constitutional: No fevers, no malaise, no joint pains CVS: No chest pain, no orthopnea, no dyspnea on exertion, no pedal edema GI: No abdominal pain, no diarrhea, no vomiting, no constipation Respiratory: No shortness of breath, no wheezing, no coughing Hospitalist Physical - Physical exam Narrative exam: cachectic HEENT: Moist mucous membranes, extraocular muscles intact, no lymphadenopathy Neck: supple Cardiac: S1-S2 heard Lungs: clear to auscultation bilaterally Abdomen: soft , nontender, nondistended, bowel sounds positive Extremities: no edema clubbing or cyanosis Skin: no rash or lesions Neurologic: no gross focal deficits Psych: calm, and cooperative - Constitutional Vitals: Temp Pulse Resp BP Pulse Ox 98.7 F 83 20 99/58 96 11/05/18 07:34 11/05/18 09:17 11/05/18 07:34 11/05/18 09:17 11/05/18 07:49 Results - Labs CBC & Chem 7: 11/02/18 05:00 11/02/18 05:00 Labs: Laboratory Last Values WBC 12.9 K/mm3 (4.5-11.0) H 11/02/18 05:00 RBC 3.43 M/mm3 (3.65-5.03) L 11/02/18 05:00 Hgb 10.8 gm/dl (11.8-15.2) L 11/02/18 05:00 Hct 32.0 % (35.5-45.6) L 11/02/18 05:00 MCV 93 fl (84-94) 11/02/18 05:00 MCH 32 pg (28-32) 11/02/18 05:00 MCHC 34 % (32-34) 11/02/18 05:00 RDW 14.8 % (13.2-15.2) 11/02/18 05:00 Plt Count 318 K/mm3 (140-440) 11/02/18 05:00 Lymph % (Auto) 12.0 % (13.4-35.0) L 11/02/18 05:00 Blair % (Auto) 7.0 % (0.0-7.3) 11/02/18 05:00 Eos % (Auto) 0.2 % (0.0-4.3) 11/02/18 05:00 Baso % (Auto) 0.1 % (0.0-1.8) 11/02/18 05:00 Lymph # 1.5 K/mm3 (1.2-5.4) 11/02/18 05:00 Blair # 0.9 K/mm3 (0.0-0.8) H 11/02/18 05:00 Eos # 0.0 K/mm3 (0.0-0.4) 11/02/18 05:00 Baso # 0.0 K/mm3 (0.0-0.1) 11/02/18 05:00 Add Manual Diff Complete 10/31/18 00:24 Total Counted 100 10/31/18 00:24 Seg Neutrophils % 80.7 % (40.0-70.0) H 11/02/18 05:00 Seg Neuts % (Manual) 92.0 % (40.0-70.0) H 10/31/18 00:24 Band Neutrophils % 0 % 10/31/18 00:24 Lymphocytes % (Manual) 5.0 % (13.4-35.0) L 10/31/18 00:24 Reactive Lymphs % (Man) 0 % 10/31/18 00:24 Monocytes % (Manual) 3.0 % (0.0-7.3) 10/31/18 00:24 Eosinophils % (Manual) 0 % (0.0-4.3) 10/31/18 00:24 Basophils % (Manual) 0 % (0.0-1.8) 10/31/18 00:24 Metamyelocytes % 0 % 10/31/18 00:24 Myelocytes % 0 % 10/31/18 00:24 Promyelocytes % 0 % 10/31/18 00:24 Blast Cells % 0 % 10/31/18 00:24 Nucleated RBC % Not Reportable 10/31/18 00:24 Seg Neutrophils # 10.4 K/mm3 (1.8-7.7) H 11/02/18 05:00 Seg Neutrophils # Man 24.8 K/mm3 (1.8-7.7) H 10/31/18 00:24 Band Neutrophils # 0.0 K/mm3 10/31/18 00:24 Lymphocytes # (Manual) 1.4 K/mm3 (1.2-5.4) 10/31/18 00:24 Abs React Lymphs (Man) 0.0 K/mm3 10/31/18 00:24 Monocytes # (Manual) 0.8 K/mm3 (0.0-0.8) 10/31/18 00:24 Eosinophils # (Manual) 0.0 K/mm3 (0.0-0.4) 10/31/18 00:24 Basophils # (Manual) 0.0 K/mm3 (0.0-0.1) 10/31/18 00:24 Metamyelocytes # 0.0 K/mm3 10/31/18 00:24 Myelocytes # 0.0 K/mm3 10/31/18 00:24 Promyelocytes # 0.0 K/mm3 10/31/18 00:24 Blast Cells # 0.0 K/mm3 10/31/18 00:24 WBC Morphology Not Reportable 10/31/18 00:24 Hypersegmented Neuts Not Reportable 10/31/18 00:24 Hyposegmented Neuts Not Reportable 10/31/18 00:24 Hypogranular Neuts Not Reportable 10/31/18 00:24 Smudge Cells Not Reportable 10/31/18 00:24 Toxic Granulation Not Reportable 10/31/18 00:24 Toxic Vacuolation Not Reportable 10/31/18 00:24 Dohle Bodies Not Reportable 10/31/18 00:24 Pelger-Huet Anomaly Not Reportable 10/31/18 00:24 Terrence Rods Not Reportable 10/31/18 00:24 Platelet Estimate Appears normal 10/31/18 00:24 Clumped Platelets Not Reportable 10/31/18 00:24 Plt Clumps, EDTA Not Reportable 10/31/18 00:24 Large Platelets Not Reportable 10/31/18 00:24 Giant Platelets Not Reportable 10/31/18 00:24 Platelet Satelliting Not Reportable 10/31/18 00:24 Plt Morphology Comment Not Reportable 10/31/18 00:24 RBC Morphology Not Reportable 10/31/18 00:24 Dimorphic RBCs Not Reportable 10/31/18 00:24 Polychromasia Not Reportable 10/31/18 00:24 Hypochromasia Not Reportable 10/31/18 00:24 Poikilocytosis Not Reportable 10/31/18 00:24 Anisocytosis 1+ 10/31/18 00:24 Microcytosis Not Reportable 10/31/18 00:24 Macrocytosis Not Reportable 10/31/18 00:24 Spherocytes Not Reportable 10/31/18 00:24 Pappenheimer Bodies Not Reportable 10/31/18 00:24 Sickle Cells Not Reportable 10/31/18 00:24 Target Cells Not Reportable 10/31/18 00:24 Tear Drop Cells Not Reportable 10/31/18 00:24 Ovalocytes 1+ 10/31/18 00:24 Helmet Cells Rare 10/31/18 00:24 Lezama-Strathcona Bodies Not Reportable 10/31/18 00:24 Opolis Rings Not Reportable 10/31/18 00:24 Olvin Cells 2+ 10/31/18 00:24 Bite Cells Not Reportable 10/31/18 00:24 Crenated Cell Not Reportable 10/31/18 00:24 Elliptocytes 1+ 10/31/18 00:24 Acanthocytes (Spur) Not Reportable 10/31/18 00:24 Rouleaux Not Reportable 10/31/18 00:24 Hemoglobin C Crystals Not Reportable 10/31/18 00:24 Schistocytes Not Reportable 10/31/18 00:24 Malaria parasites Not Reportable 10/31/18 00:24 Lalo Bodies Not Reportable 10/31/18 00:24 Hem Pathologist Commnt No 10/31/18 00:24 Sodium 137 mmol/L (137-145) 11/02/18 05:00 Potassium 4.0 mmol/L (3.6-5.0) 11/02/18 05:00 Chloride 103.9 mmol/L (98-107) 11/02/18 05:00 Carbon Dioxide 21 mmol/L (22-30) L 11/02/18 05:00 Anion Gap 16 mmol/L 11/02/18 05:00 BUN 10 mg/dL (9-20) 11/02/18 05:00 Creatinine 0.4 mg/dL (0.8-1.5) L 11/02/18 05:00 Estimated GFR > 60 ml/min 11/02/18 05:00 BUN/Creatinine Ratio 25 % 11/02/18 05:00 Glucose 102 mg/dL (75-100) H 11/02/18 05:00 POC Glucose 155 (70-105) H 11/02/18 15:23 Lactic Acid 1.70 mmol/L (0.7-2.0) 10/30/18 20:49 Calcium 8.6 mg/dL (8.4-10.2) 11/02/18 05:00 Total Bilirubin 0.40 mg/dL (0.1-1.2) 10/31/18 00:24 AST 19 units/L (5-40) 10/31/18 00:24 ALT 10 units/L (7-56) 10/31/18 00:24 Alkaline Phosphatase 121 units/L (35-129) 10/31/18 00:24 Total Protein 6.5 g/dL (6.3-8.2) 10/31/18 00:24 Albumin 3.4 g/dL (3.9-5) L 10/31/18 00:24 Albumin/Globulin Ratio 1.1 % 10/31/18 00:24 Urine Color Yellow (Yellow) 10/31/18 05:35 Urine Turbidity Slightly-cloudy (Clear) 10/31/18 05:35 Urine pH 5.0 (5.0-7.0) 10/31/18 05:35 Ur Specific Erving 1.017 (1.003-1.030) 10/31/18 05:35 Urine Protein <15 mg/dl mg/dL (Negative) 10/31/18 05:35 Urine Glucose (UA) Neg mg/dL (Negative) 10/31/18 05:35 Urine Ketones Tr mg/dL (Negative) 10/31/18 05:35 Urine Blood Neg (Negative) 10/31/18 05:35 Urine Nitrite Neg (Negative) 10/31/18 05:35 Urine Bilirubin Neg (Negative) 10/31/18 05:35 Urine Urobilinogen < 2.0 mg/dL (<2.0) 10/31/18 05:35 Ur Leukocyte Esterase Neg (Negative) 10/31/18 05:35 Urine WBC (Auto) 8.0 /HPF (0.0-6.0) H 10/31/18 05:35 Urine RBC (Auto) 29.0 /HPF (0.0-6.0) 10/31/18 05:35 U Epithel Cells (Auto) 1.0 /HPF (0-13.0) 10/31/18 05:35 Calcium Oxalate Crystal 1+ 10/31/18 05:35 Hyaline Casts 4 /LPF 10/31/18 05:35 Urine Mucus Few /HPF 10/31/18 05:35 Nutrition/Malnutrition Assess - Dietary Evaluation Nutrition/Malnutrition Findings: Nutrition Notes Start: 10/31/18 15: 23 Freq: Status: Active Protocol: Document 11/02/18 14:57 RM (Rec: 11/02/18 15:07 RM [id number]) Nutrition Notes Initial or Follow up Reassessment Other Pertinent Diagnosis (R) lateral chest wall abscess Current Diet Regular Labs/Tests Reviewed Pertinent Medications Reviewed Height 6 ft 3 in Weight 41.7 kg [place] Body Weight (lbs) 196.0 BMI 11.5 Subjective/Other Information Pt NPO earlier today for biopsy. Regular diet ordered later today. Pt asleep at time of visit. No family present to facilitate assessment. Nurse and tech unsure how much pt has been eating. Recorded PO intakes 25% X 2 meals and 100% of supplement before NPO status. Percent of energy/protein needs met: 44%/82% Burn Absent Trauma Absent #1 Nutrition Diagnosis Malnutrition Diagnosis Progress(for reassessment Continues documentation) Is patient on ventilator? No Is Patient Ambulatory and/or Out of Bed No REE-(Acra-. [facility]-confined to bed) 1491.852 Kcal/Kg value to use for calculation 48 Approximate Energy Requirements Using 2002 kcal/Kg Calculation Used for Recommendations Kcal/kg Additional Notes Pro needs 1.2-1.5g/k-63g/ day Fluid needs 1ml/kcal Nutrition Intervention Change Diet Order: Mech soft; salt packet with each tray Add Supplement/Snack (indicate name/kcal Ensure Enlive TID (vanilla) /protein ) Provides kCal: 1,050 Provides Protein (gm) 60 Goal #1 PO intake of meals plus ONS to meet 100% energy and pro needs Goal #2 Wt maintenance and/or gain Anticipated Discharge Needs: Mech soft diet Follow-Up By: 11/05/18 Additional Comments Follow for PO and ONS intakes
--- NOTE | 2018-11-05 11:58 | Consultation ---
History of Present Illness - Reason for Consult Consult date: 11/05/18 Bacteremia Requesting physician: JOHAN HODGES - History of Present Illness The patient is a 73-year-old male with lung cancer status post right upper lobe resection in early 2017, seizure disorder, hypertension, gastroesophageal reflux disease, [facility] resident presented to the emergency room on 10/30/2018 with a right chest mass/swelling going on for about 1 week prior to admission. He was evaluated in the ER, there was question for possible mass versus abscess for which she underwent a bedside I&D/biopsy and a general surgery consult. Chest CT was concerning for multiple pulmonary nodules and bony erosions on the right chest with a soft tissue swelling/mass. Empirically was initiated on cefepime and vancomycin. Blood cultures on admission grew gram-positive rods, later speciated as diphtheroids. Infectious diseases was consulted for evaluation of bacteremia. Patient is cachectic. He denies any complaints as such. He denies fevers or chills prior to admission and has remained afebrile here. Currently he is on IV vancomycin. Family History: HTN. Review of Systems: General: no fevers,chills or rigors HEENT: no new visual disturbance Respiratory: chronic cough, shortness of breath. No hemoptysis Cardiovascular: No chest pain, syncope Gastrointestinal: No nausea, vomiting or diarrhea Genitourinary: No dysuria or hematuria Musculoskeletal: No new or worsening neck pain or back pain Neurologic: No headaches, seizures Hematologic: No easy bruising or bleeding Endocrine: No night sweats or acute weight loss Skin: negative for rash, jaundice Psychiatric: No suicidal or homicidal ideation Past History Past Medical History: cancer (lung - No chemo or rad given), COPD, GERD, hypertension, seizures, stroke (February 2018) Past Surgical History: Other (RUL lung resection; trach/PEG) Social history: other (l[facility] in [facility]). denies: smoking, alcohol abuse, prescription drug abuse, IV drug use Family history: no significant family history Medications and Allergies Allergies Allergy/AdvReac Type Severity Reaction Status Date / Time No Known Allergies Allergy Verified 08/21/18 19:54 Home Medications Medication Instructions Recorded Confirmed Last Taken Type Lisinopril [Zestril] 20 mg PO DAILY 08/22/18 10/30/18 Unknown History Loperamide HCl [Imodium A-D] 2 mg PO Q6HR PRN 08/22/18 10/30/18 Unknown History Megestrol [Megace] 20 mg PO DAILY 08/22/18 10/30/18 Unknown History Mirtazapine [Remeron] 15 mg PO HS 08/22/18 10/30/18 Unknown History Multivit-Min/Iron Fum/Folic AC 1 each PO DAILY 08/22/18 10/30/18 Unknown History [Vtqlj-Nvpasgb-Kjxotife Tablet] Tramadol HCl [Ultram] 50 mg PO Q6H PRN 08/22/18 10/30/18 Unknown History ALBUTEROL NEB's [Proventil] 2.5 mg IH BID PRN 10/30/18 10/30/18 Unknown History Acetaminophen [Tylenol] 500 mg PO Q8HR PRN 10/30/18 10/30/18 Unknown History Budesonide [Pulmicort] 0.5 mg IH Q12HR PRN 10/30/18 10/30/18 Unknown History Cholestyramine (with Sugar) 4 gm PO DAILY 10/30/18 10/30/18 Unknown History [Questran Powder] Pantoprazole [Protonix] 40 mg PO QDAY 10/30/18 10/30/18 Unknown History Saccharomyces Boulardii [Florastor] 250 mg PO BID PRN 10/30/18 10/30/18 Unknown History levETIRAcetam [Keppra TAB] 500 mg PO BID 10/30/18 10/30/18 Unknown History Active Meds: Active Medications Acetaminophen (Tylenol) 650 mg PO Q4H PRN PRN Reason: Pain MILD(1-3)/Fever >100.5/PINA Albuterol (Proventil) 2.5 mg IH Q4HRT PRN PRN Reason: Shortness Of Breath Albuterol/Ipratropium (Duoneb *Not For Prn Use*) 1 ampul IH TIDRT [facility] Last Admin: 11/05/18 07:17 Dose: 1 ampul Documented by: Budesonide (Pulmicort) 0.5 mg IH Q12HR [facility] Last Admin: 11/05/18 09:54 Dose: Not Given Documented by: Cholestyramine Resin (Questran) 4 gm PO DAILY [facility] Last Admin: 11/05/18 09:16 Dose: 4 gm Documented by: Hydromorphone HCl (Dilaudid) 0.5 mg IV Q3H PRN PRN Reason: Pain , Severe (7-10) Sodium Chloride (Nacl 0.9% 1000 Ml) 1,000 mls @ 75 mls/hr IV DIRECT [facility] Last Admin: 11/05/18 05:41 Dose: 75 mls/hr Documented by: Sodium Chloride (Nacl 0.9% 1000 Ml) 1,000 mls @ 999 mls/hr IV DIRECT [facility] Levetiracetam (Keppra) 500 mg PO BID [facility] Last Admin: 11/05/18 09:15 Dose: 500 mg Documented by: Lisinopril (Zestril) 20 mg PO DAILY [facility] Last Admin: 11/05/18 09:17 Dose: Not Given Documented by: Loperamide HCl (Imodium) 2 mg PO Q6H PRN PRN Reason: Diarrhea Megestrol Acetate (Megace) 20 mg PO DAILY [facility] Last Admin: 11/05/18 09:16 Dose: 20 mg Documented by: Metoclopramide HCl (Reglan) 10 mg IV Q6H PRN PRN Reason: Nausea And Vomiting Mirtazapine (Remeron Solutab) 15 mg PO HS [facility] Last Admin: 11/05/18 00:15 Dose: 15 mg Documented by: Miscellaneous Medication (Saccharomyces Boulardii [Florastor]) 250 mg PO BID PRN PRN Reason: Diarrhea Multivitamins/Minerals (Theragran-M Tab) 1 each PO QDAY [facility] Last Admin: 11/05/18 09:15 Dose: 1 each Documented by: Ondansetron HCl (Zofran) 4 mg IV Q8H PRN PRN Reason: Nausea And Vomiting Pantoprazole Sodium (Protonix) 40 mg PO QDAY [facility] Last Admin: 11/05/18 09:16 Dose: 40 mg Documented by: Sodium Chloride (Sodium Chloride Flush Syringe 10 Ml) 10 ml IV BID [facility] Last Admin: 11/05/18 09:17 Dose: 10 ml Documented by: Sodium Chloride (Sodium Chloride Flush Syringe 10 Ml) 10 ml IV PRN PRN PRN Reason: LINE FLUSH Last Admin: 10/31/18 02:54 Dose: 10 ml Documented by: Tramadol HCl (Ultram) 50 mg PO Q6H PRN PRN Reason: Pain, Moderate (4-6) Physical Examination - Physical Exam Narrative exam: Physical Exam: Constitutional: Alert, cooperative. No acute distress. Cachexia + Head, Ears, Nose: Normocephalic, atraumatic. External ears, nose normal Eyes: Conjunctivae/corneas clear. No icterus. No ptosis. Neck: Supple, no meningeal signs Oral: poor dentition, no thrush Cardiovascular: S1, S2 normal. Respiratory: AE reduced bilaterally, no crackles GI: Soft, non-tender; bowel sounds normal. No peritoneal signs Musculoskeletal: cachexia, right chest wall mass, no purulence or fluctuation. Skin: No rash or abscess Hem/Lymphatic: No palpable cervical or supraclavicular nodes. No lymphangitis Psych: Mood ok. Affect normal Neurological: Awake, alert, oriented. No gross abnormality - Constitutional Vitals: Vital Signs Temp Pulse Resp BP Pulse Ox 98.7 F 83 20 99/58 96 11/05/18 07:34 11/05/18 09:17 11/05/18 07:34 11/05/18 09:17 11/05/18 07:49 Temperature -Last 24 Hours Temperature 98.7 F Temperature 99.3 F Temperature 98.4 F Temperature 97.9 F Results - Labs CBC & Chem 7: 11/02/18 05:00 11/02/18 05:00 - Imaging and Cardiology Chest x-ray: report reviewed, image reviewed (right upper lobe lobectomy.) CT scan - chest: report reviewed, image reviewed (right chest wall mass. Right lung with nodules concerning for malignancy.) Assessment and Plan Cultures: 10/30/2018 and blood cultures: One out of 4 bottles positive for gram-positive rods, diphtheroids. A/P: 73-year-old male with lung cancer status post right upper lobe resection in early 2018, seizure disorder, hypertension, gastroesophageal reflux disease, [facility] resident admitted with: #1 Right chest wall mass: Likely malignancy. No concern for infectious process. Oncology on board. F/U surgical biopsy. #2 GPR bacteremia: One out of 4 bottles positive for diphtheroids. Suspect skin contaminant. Antibiotics not needed. #3 SIRS versus sepsis: WBC likely reactive. Don't think the patient was septic. Leucocytosis could be related to underlying malignancy, especially infiltrating masses are known to do that. #4 Cachexia: again likely malignancy related. Guarded prognosis. Agree with palliative care. Recs: - no further abx needed - Leucocytosis could be related to underlying malignancy, especially infiltrating masses are known to do that - agree with palliative care D/W Dr. Hodges. MD Gabriela Aguilar [facility] C: [phone] O: [phone] F: [phone]
[2018-11-06] MEDS: DUONEB *Not for PRN Use IH SCH ×3 (07:26→19:11)
[2018-11-06] MEDS: PULMICORT IH SCH ×4 (07:26→21:56)
--- NOTE | 2018-11-06 07:45 | Hem/Onc Progress Note ---
Assessment and Plan 1. Soft tissue lesion, right lung. Neoplasm versus abscess, seen by surgical team. 2. Bilateral lower lobe nodules, which may be neoplastic. 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 It is not clear if this was lung cancer or sarcoma. The patient is emaciated. 3. History of hypertension. Now, the BP is low. 4. History of loss of weight. 5. History of seizure disorder. There is a plan for biopsy. We will await for pathology. The nursing staff will call the family to find out who the patient's oncologist is. 6. Leukocytosis, likely reactive. 11/02/2018- pt has feeble slurred speech - ? oncologist at ? [facility]? 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 11/06 - d/w pt that he can come and see me in the clinic once his performance status improves, if he prefers - Patient Problems (1) Neoplasm of uncertain behavior of skin Current Visit: Yes Status: Acute Subjective Date of service: 11/06/18 Principal diagnosis: lung ca Interval history: pt says trying to eat Objective - Constitutional Vitals: Last Vital Signs Temp 97.2 F L 11/06/18 02:33 Pulse 86 11/06/18 02:30 Resp 20 11/06/18 02:33 BP 106/61 11/06/18 02:33 Pulse Ox 97 11/06/18 02:30 Pain Intensity (0-10): denies any pain General appearance: no acute distress, cachectic Performance status: 4-completely disabled - EENT Eyes: EOM intact ENT: clear oral mucosa - Respiratory Respiratory effort: Positive: normal Respiratory: bilateral: diminished - Cardiovascular Heart Sounds: Present: S1 & S2 Extremities: No edema - Gastrointestinal General gastrointestinal: Present: soft Rectal Exam: deferred - Genitourinary Male genitourinary: Present: deferred - Integumentary Integumentary: warm - Musculoskeletal Musculoskeletal: generalized weakness - Neurologic Neurologic: moves all extremities Medications & Allergies - Medications Allergies/Adverse Reactions: Allergies No Known Allergies Allergy (Verified 08/21/18 19:54) Home Medications: Home Medications Medication Instructions Recorded Confirmed Last Taken Type Lisinopril [Zestril] 20 mg PO DAILY 08/22/18 10/30/18 Unknown History Loperamide HCl [Imodium A-D] 2 mg PO Q6HR PRN 08/22/18 10/30/18 Unknown History Megestrol [Megace] 20 mg PO DAILY 08/22/18 10/30/18 Unknown History Mirtazapine [Remeron] 15 mg PO HS 08/22/18 10/30/18 Unknown History Multivit-Min/Iron Fum/Folic AC 1 each PO DAILY 08/22/18 10/30/18 Unknown History [Ggkmx-Lsbggug-Jyotipad Tablet] Tramadol HCl [Ultram] 50 mg PO Q6H PRN 08/22/18 10/30/18 Unknown History ALBUTEROL NEB's [Proventil] 2.5 mg IH BID PRN 10/30/18 10/30/18 Unknown History Acetaminophen [Tylenol] 500 mg PO Q8HR PRN 10/30/18 10/30/18 Unknown History Budesonide [Pulmicort] 0.5 mg IH Q12HR PRN 10/30/18 10/30/18 Unknown History Cholestyramine (with Sugar) 4 gm PO DAILY 10/30/18 10/30/18 Unknown History [Questran Powder] Pantoprazole [Protonix] 40 mg PO QDAY 10/30/18 10/30/18 Unknown History Saccharomyces Boulardii [Florastor] 250 mg PO BID PRN 10/30/18 10/30/18 Unknown History levETIRAcetam [Keppra TAB] 500 mg PO BID 10/30/18 10/30/18 Unknown History Active Medications: Generic Name Dose Route Start Last Admin Trade Name Freq PRN Reason Stop Dose Admin Acetaminophen 650 mg 10/31/18 00:14 Tylenol PO Q4H PRN Pain MILD(1-3)/Fever >100.5/PINA Albuterol 2.5 mg 11/01/18 20:09 Proventil IH Q4HRT PRN Shortness Of Breath Albuterol/Ipratropium 1 ampul 11/02/18 09:00 11/06/18 07:26 Duoneb *Not For Prn Use* IH 1 ampul TIDRT [facility] Administration Budesonide 0.5 mg 11/02/18 10:00 11/06/18 07:26 Pulmicort IH 0.5 mg Q12HR [facility] Administration Cholestyramine Resin 4 gm 10/31/18 10:00 11/05/18 09:16 Questran PO 4 gm DAILY [facility] Administration Hydromorphone HCl 0.5 mg 10/31/18 00:14 Dilaudid IV Q3H PRN Pain , Severe (7-10) Sodium Chloride 1,000 mls @ 75 mls/hr 10/31/18 01:00 11/05/18 05:41 Nacl 0.9% 1000 Ml IV 75 mls/hr DIRECT [facility] Administration Sodium Chloride 1,000 mls @ 999 mls/hr 11/01/18 09:00 Nacl 0.9% 1000 Ml IV DIRECT [facility] Levetiracetam 500 mg 10/31/18 22:30 11/05/18 23:03 Keppra PO 500 mg BID [facility] Administration Lisinopril 20 mg 10/31/18 10:00 11/05/18 09:17 Zestril PO Not Given DAILY [facility] Loperamide HCl 2 mg 10/31/18 02:46 Imodium PO Q6H PRN Diarrhea Megestrol Acetate 20 mg 10/31/18 10:00 11/05/18 09:16 Megace PO 20 mg DAILY [facility] Administration Metoclopramide HCl 10 mg 10/31/18 00:14 Reglan IV Q6H PRN Nausea And Vomiting Mirtazapine 15 mg 10/31/18 22:00 11/05/18 23:03 Remeron Solutab PO 15 mg HS [facility] Administration Miscellaneous Medication 250 mg 10/31/18 00:11 Saccharomyces Boulardii [Florastor] PO BID PRN Diarrhea Multivitamins/Minerals 1 each 10/31/18 10:00 11/05/18 09:15 Theragran-M Tab PO 1 each QDAY [facility] Administration Ondansetron HCl 4 mg 10/31/18 00:14 Zofran IV Q8H PRN Nausea And Vomiting Pantoprazole Sodium 40 mg 10/31/18 10:00 11/05/18 09:16 Protonix PO 40 mg QDAY [facility] Administration Sodium Chloride 10 ml 10/31/18 10:00 11/05/18 09:17 Sodium Chloride Flush Syringe 10 Ml IV 10 ml BID [facility] Administration Sodium Chloride 10 ml 10/31/18 00:14 10/31/18 02:54 Sodium Chloride Flush Syringe 10 Ml IV 10 ml PRN PRN Administration LINE FLUSH Tramadol HCl 50 mg 10/31/18 00:11 Ultram PO Q6H PRN Pain, Moderate (4-6)
[2018-11-06] MEDS: NACL 0.9% 1000 ML 1,000 ML IV SCH ×2 (09:47→21:33)
[2018-11-06] MEDS: SODIUM CHLORIDE FLUSH SYRINGE 10 ML IV SCH ×3 (09:47→21:34)
[2018-11-06] MEDS: THERAGRAN-M Tab PO SCH (09:50)
[2018-11-06] MEDS: PROTONIX PO SCH (09:50)
[2018-11-06] MEDS: ZESTRIL PO SCH (09:50)
[2018-11-06] MEDS: KEPPRA PO SCH ×2 (09:50→21:31)
[2018-11-06] MEDS: QUESTRAN PO SCH (09:51)
[2018-11-06] MEDS: MEGACE PO SCH (09:51)
--- NOTE | 2018-11-06 13:39 | Progress Note ---
Assessment and Plan Cultures: 10/30/2018 and blood cultures: One out of 4 bottles positive for gram-positive rods, diphtheroids. A/P: 73-year-old male with lung cancer status post right upper lobe resection in early 2018, seizure disorder, hypertension, gastroesophageal reflux disease, [facility] resident admitted with: #1 Right chest wall mass: due to invasive pulmonary adenocarcinoma per biopsy. No concern for infectious process. #2 GPR bacteremia: One out of 4 bottles positive for diphtheroids. Suspect skin contaminant. Antibiotics not needed. #3 SIRS versus sepsis: WBC likely reactive. Don't think the patient was septic. Leucocytosis could be related to underlying malignancy, especially infiltrating masses are known to do that. #4 Cachexia: again likely malignancy related. Guarded prognosis. Agree with palliative care. Recs: - no further abx needed - Leucocytosis could be related to underlying malignancy, especially infiltrating masses are known to do that - agree with palliative care I will sign off, call me for questions MD [facility]ri[facility] C: [phone] O: [phone] F: [phone] Subjective Date of service: 11/06/18 Principal diagnosis: lung ca Interval history: Patient feels better, no pain, no fever. ROS: denies N/V/D, Abd pain, fever, urinary symptoms. Objective - Exam Narrative Exam: Constitutional: Alert, cooperative. No acute distress. Cachexia + Head, Ears, Nose: Normocephalic, atraumatic. External ears, nose normal Eyes: Conjunctivae/corneas clear. No icterus. No ptosis. Neck: Supple, no meningeal signs Oral: poor dentition, no thrush Cardiovascular: S1, S2 normal. Respiratory: AE reduced bilaterally, no crackles GI: Soft, non-tender; bowel sounds normal. No peritoneal signs Musculoskeletal: cachexia, right chest wall mass, no purulence or fluctuation. Skin: No rash or abscess Hem/Lymphatic: No palpable cervical or supraclavicular nodes. No lymphangitis Psych: Mood ok. Affect normal Neurological: Awake, alert, oriented. No gross abnormality - Constitutional Vitals: Vital Signs Temp Pulse Resp BP Pulse Ox 97.2 F L 75 18 136/76 97 11/06/18 02:33 11/06/18 09:50 11/06/18 07:36 11/06/18 09:50 11/06/18 07:30 Temperature -Last 24 Hours Temperature 97.2 F Temperature 98.3 F Temperature 98.1 F - Labs CBC & Chem 7: 11/02/18 05:00 11/02/18 05:00
[2018-11-06] MEDS: REMERON SOLUTAB PO SCH (21:31)
[2018-11-07] MEDS: PULMICORT IH SCH ×4 (07:41→22:48)
[2018-11-07] MEDS: DUONEB *Not for PRN Use IH SCH ×3 (07:41→19:44)
[2018-11-07] MEDS: SODIUM CHLORIDE FLUSH SYRINGE 10 ML IV SCH ×2 (09:30→21:28)
[2018-11-07] MEDS: QUESTRAN PO SCH (09:31)
[2018-11-07] MEDS: THERAGRAN-M Tab PO SCH (09:32)
[2018-11-07] MEDS: MEGACE PO SCH (09:32)
[2018-11-07] MEDS: KEPPRA PO SCH ×2 (09:32→21:28)
[2018-11-07] MEDS: PROTONIX PO SCH (09:32)
[2018-11-07] MEDS: ZESTRIL PO SCH (09:33)
--- NOTE | 2018-11-07 12:35 | Progress Note ---
Assessment and Plan - Patient Problems (1) Neoplasm of uncertain behavior of skin Current Visit: Yes Status: Acute Plan to address problem: Pt stable. s/p right chest wall tumor biopsy - 11/02/18 - POD#5. Pt appears to be doing well after surgery. Path - AdenoCa (pulmonary type) Due to the drainage, as a precaution, I removed a suture and packed the wound with Mesalt. There was no purulent drainage. I believe the drainage on the dressing, is as a result of breakdown of the clot and tumor. Mesalt should be changed QOD. Disposition per Hospitalist. Please call with questions. time=10min Subjective Date of service: 11/07/18 Patient Reports: Positive: feels better, pain is less Objective Vital Signs - 12hr 11/07/18 11/07/18 11/07/18 02:00 02:12 07:08 Temperature 99.3 F 98.0 F Pulse Rate 87 80 Pulse Rate [ Anterior Bilateral Throughout] Respiratory 22 20 Rate Respiratory Rate [Anterior Bilateral Throughout] Blood Pressure 124/72 122/70 O2 Sat by Pulse 98 98 Oximetry 11/07/18 11/07/18 11/07/18 07:43 07:55 09:33 Temperature Pulse Rate 80 Pulse Rate [ 84 85 Anterior Bilateral Throughout] Respiratory Rate Respiratory 18 18 Rate [Anterior Bilateral Throughout] Blood Pressure 122/70 O2 Sat by Pulse 95 Oximetry - General physical appearance no distress, no pain, other (resting comfortably) - Respiratory normal expansion, normal respiratory effort - Integumentary other (some drainage is noted on dressing. Most likely this is a breakdown of the clot and tumor.) - Labs 11/02/18 05:00 11/02/18 05:00
--- NOTE | 2018-11-07 12:51 | Progress Note ---
Assessment and Plan Assessment and plan: 73-year-old man who presented from local senior care. He was brought in because of a mass on the right side of his chest. The patient's has chronic shortness of breath and chronically has trouble talking and expressing himself. He was first thought to be an abscess, but a biopsy was done by surgery, and was found to be a mass with necrotic tissue. It was biopsied, pathology pending. The patient received empiric antibiotics at first, on solid mass was ruled to not be an abscess. The antibiotics were discontinued. -He had a positive blood culture which grew diphtheroids, ID consult appreciate d, likely a contaminant, no further w/o or rx recommended -Septic shock was ruled out, the blood pressure cuff was too large for his size. He received IV fluids. He received dietitian consult for malnutrition. 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, he is too weak to walk, will need improved functional status before he can be offered chemo, he would like to fup with Oncology upon dc -patient would like to be placed in a different SNF, awaiting placement, he wants snf with hospice, he understands that he must withdraw from hospice to get chemo if he is able to do so in the future Diagnosis Left chest mass hx of of cancer severe malnutrition sepsis ruled out septic shock ruled out Diptheroid bactermia, likely contaminant History Interval history: Review of systems Constitutional: No fevers, no malaise, no joint pains CVS: No chest pain, no orthopnea, no dyspnea on exertion, no pedal edema GI: No abdominal pain, no diarrhea, no vomiting, no constipation Respiratory: No shortness of breath, no wheezing, no coughing Hospitalist Physical - Physical exam Narrative exam: cachectic HEENT: Moist mucous membranes, extraocular muscles intact, no lymphadenopathy Neck: supple Cardiac: S1-S2 heard Lungs: clear to auscultation bilaterally Abdomen: soft , nontender, nondistended, bowel sounds positive Extremities: no edema clubbing or cyanosis Skin: no rash or lesions Neurologic: no gross focal deficits Psych: calm, and cooperative - Constitutional Vitals: Temp Pulse Resp BP Pulse Ox 98.0 F 80 18 122/70 95 11/07/18 07:08 11/07/18 09:33 11/07/18 07:55 11/07/18 09:33 11/07/18 07:43 Results - Labs CBC & Chem 7: 11/02/18 05:00 11/02/18 05:00 Labs: Laboratory Last Values WBC 12.9 K/mm3 (4.5-11.0) H 11/02/18 05:00 RBC 3.43 M/mm3 (3.65-5.03) L 11/02/18 05:00 Hgb 10.8 gm/dl (11.8-15.2) L 11/02/18 05:00 Hct 32.0 % (35.5-45.6) L 11/02/18 05:00 MCV 93 fl (84-94) 11/02/18 05:00 MCH 32 pg (28-32) 11/02/18 05:00 MCHC 34 % (32-34) 11/02/18 05:00 RDW 14.8 % (13.2-15.2) 11/02/18 05:00 Plt Count 318 K/mm3 (140-440) 11/02/18 05:00 Lymph % (Auto) 12.0 % (13.4-35.0) L 11/02/18 05:00 [place] % (Auto) 7.0 % (0.0-7.3) 11/02/18 05:00 Eos % (Auto) 0.2 % (0.0-4.3) 11/02/18 05:00 Baso % (Auto) 0.1 % (0.0-1.8) 11/02/18 05:00 Lymph # 1.5 K/mm3 (1.2-5.4) 11/02/18 05:00 [place]cl[place] # 0.9 K/mm3 (0.0-0.8) H 11/02/18 05:00 Eos # 0.0 K/mm3 (0.0-0.4) 11/02/18 05:00 Baso # 0.0 K/mm3 (0.0-0.1) 11/02/18 05:00 Add Manual Diff Complete 10/31/18 00:24 Total Counted 100 10/31/18 00:24 Seg Neutrophils % 80.7 % (40.0-70.0) H 11/02/18 05:00 Seg Neuts % (Manual) 92.0 % (40.0-70.0) H 10/31/18 00:24 Band Neutrophils % 0 % 10/31/18 00:24 Lymphocytes % (Manual) 5.0 % (13.4-35.0) L 10/31/18 00:24 Reactive Lymphs % (Man) 0 % 10/31/18 00:24 Monocytes % (Manual) 3.0 % (0.0-7.3) 10/31/18 00:24 Eosinophils % (Manual) 0 % (0.0-4.3) 10/31/18 00:24 Basophils % (Manual) 0 % (0.0-1.8) 10/31/18 00:24 Metamyelocytes % 0 % 10/31/18 00:24 Myelocytes % 0 % 10/31/18 00:24 Promyelocytes % 0 % 10/31/18 00:24 Blast Cells % 0 % 10/31/18 00:24 Nucleated RBC % Not Reportable 10/31/18 00:24 Seg Neutrophils # 10.4 K/mm3 (1.8-7.7) H 11/02/18 05:00 Seg Neutrophils # Man 24.8 K/mm3 (1.8-7.7) H 10/31/18 00:24 Band Neutrophils # 0.0 K/mm3 10/31/18 00:24 Lymphocytes # (Manual) 1.4 K/mm3 (1.2-5.4) 10/31/18 00:24 Abs React Lymphs (Man) 0.0 K/mm3 10/31/18 00:24 Monocytes # (Manual) 0.8 K/mm3 (0.0-0.8) 10/31/18 00:24 Eosinophils # (Manual) 0.0 K/mm3 (0.0-0.4) 10/31/18 00:24 Basophils # (Manual) 0.0 K/mm3 (0.0-0.1) 10/31/18 00:24 Metamyelocytes # 0.0 K/mm3 10/31/18 00:24 Myelocytes # 0.0 K/mm3 10/31/18 00:24 Promyelocytes # 0.0 K/mm3 10/31/18 00:24 Blast Cells # 0.0 K/mm3 10/31/18 00:24 WBC Morphology Not Reportable 10/31/18 00:24 Hypersegmented Neuts Not Reportable 10/31/18 00:24 Hyposegmented Neuts Not Reportable 10/31/18 00:24 Hypogranular Neuts Not Reportable 10/31/18 00:24 Smudge Cells Not Reportable 10/31/18 00:24 Toxic Granulation Not Reportable 10/31/18 00:24 Toxic Vacuolation Not Reportable 10/31/18 00:24 Dohle Bodies Not Reportable 10/31/18 00:24 Pelger-Huet Anomaly Not Reportable 10/31/18 00:24 Terrence Rods Not Reportable 10/31/18 00:24 Platelet Estimate Appears normal 10/31/18 00:24 Clumped Platelets Not Reportable 10/31/18 00:24 Plt Clumps, EDTA Not Reportable 10/31/18 00:24 Large Platelets Not Reportable 10/31/18 00:24 Giant Platelets Not Reportable 10/31/18 00:24 Platelet Satelliting Not Reportable 10/31/18 00:24 Plt Morphology Comment Not Reportable 10/31/18 00:24 RBC Morphology Not Reportable 10/31/18 00:24 Dimorphic RBCs Not Reportable 10/31/18 00:24 Polychromasia Not Reportable 10/31/18 00:24 Hypochromasia Not Reportable 10/31/18 00:24 Poikilocytosis Not Reportable 10/31/18 00:24 Anisocytosis 1+ 10/31/18 00:24 Microcytosis Not Reportable 10/31/18 00:24 Macrocytosis Not Reportable 10/31/18 00:24 Spherocytes Not Reportable 10/31/18 00:24 Pappenheimer Bodies Not Reportable 10/31/18 00:24 Sickle Cells Not Reportable 10/31/18 00:24 Target Cells Not Reportable 10/31/18 00:24 Tear Drop Cells Not Reportable 10/31/18 00:24 Ovalocytes 1+ 10/31/18 00:24 Helmet Cells Rare 10/31/18 00:24 [place] Bodies Not Reportable 10/31/18 00:24 [place] Rings Not Reportable 10/31/18 00:24 Olvin Cells 2+ 10/31/18 00:24 Bite Cells Not Reportable 10/31/18 00:24 Crenated Cell Not Reportable 10/31/18 00:24 Elliptocytes 1+ 10/31/18 00:24 Acanthocytes (Spur) Not Reportable 10/31/18 00:24 Rouleaux Not Reportable 10/31/18 00:24 Hemoglobin C Crystals Not Reportable 10/31/18 00:24 Schistocytes Not Reportable 10/31/18 00:24 Malaria parasites Not Reportable 10/31/18 00:24 Lalo Bodies Not Reportable 10/31/18 00:24 Hem Pathologist Commnt No 10/31/18 00:24 Sodium 137 mmol/L (137-145) 11/02/18 05:00 Potassium 4.0 mmol/L (3.6-5.0) 11/02/18 05:00 Chloride 103.9 mmol/L (98-107) 11/02/18 05:00 Carbon Dioxide 21 mmol/L (22-30) L 11/02/18 05:00 Anion Gap 16 mmol/L 11/02/18 05:00 BUN 10 mg/dL (9-20) 11/02/18 05:00 Creatinine 0.4 mg/dL (0.8-1.5) L 11/02/18 05:00 Estimated GFR > 60 ml/min 11/02/18 05:00 BUN/Creatinine Ratio 25 % 11/02/18 05:00 Glucose 102 mg/dL (75-100) H 11/02/18 05:00 POC Glucose 155 (70-105) H 11/02/18 15:23 Lactic Acid 1.70 mmol/L (0.7-2.0) 10/30/18 20:49 Calcium 8.6 mg/dL (8.4-10.2) 11/02/18 05:00 Total Bilirubin 0.40 mg/dL (0.1-1.2) 10/31/18 00:24 AST 19 units/L (5-40) 10/31/18 00:24 ALT 10 units/L (7-56) 10/31/18 00:24 Alkaline Phosphatase 121 units/L (35-129) 10/31/18 00:24 Total Protein 6.5 g/dL (6.3-8.2) 10/31/18 00:24 Albumin 3.4 g/dL (3.9-5) L 10/31/18 00:24 Albumin/Globulin Ratio 1.1 % 10/31/18 00:24 Urine Color Yellow (Yellow) 10/31/18 05:35 Urine Turbidity Slightly-cloudy (Clear) 10/31/18 05:35 Urine pH 5.0 (5.0-7.0) 10/31/18 05:35 Ur Specific [place] 1.017 (1.003-1.030) 10/31/18 05:35 Urine Protein <15 mg/dl mg/dL (Negative) 10/31/18 05:35 Urine Glucose (UA) Neg mg/dL (Negative) 10/31/18 05:35 Urine Ketones Tr mg/dL (Negative) 10/31/18 05:35 Urine Blood Neg (Negative) 10/31/18 05:35 Urine Nitrite Neg (Negative) 10/31/18 05:35 Urine Bilirubin Neg (Negative) 10/31/18 05:35 Urine Urobilinogen < 2.0 mg/dL (<2.0) 10/31/18 05:35 Ur Leukocyte Esterase Neg (Negative) 10/31/18 05:35 Urine WBC (Auto) 8.0 /HPF (0.0-6.0) H 10/31/18 05:35 Urine RBC (Auto) 29.0 /HPF (0.0-6.0) 10/31/18 05:35 U Epithel Cells (Auto) 1.0 /HPF (0-13.0) 10/31/18 05:35 Calcium Oxalate Crystal 1+ 10/31/18 05:35 Hyaline Casts 4 /LPF 10/31/18 05:35 Urine Mucus Few /HPF 10/31/18 05:35 Nutrition/Malnutrition Assess - Dietary Evaluation Nutrition/Malnutrition Findings: Nutrition Notes Start: 10/31/18 15:23 Freq: Status: Active Protocol: Document 11/05/18 14:33 RM (Rec: 11/05/18 15:15 RM [id number]) Nutrition Notes Initial or Follow up Reassessment Other Pertinent Diagnosis (R) lateral chest wall abscess Current Diet Mech Soft diet w/Ensure Enlive Vanilla TID Labs/Tests Reviewed Pertinent Medications Reviewed Height 6 ft 3 in Weight 41.5 kg [place] Body Weight (kg) 196.0 BMI 11.4 Weight change and time frame above wt from creative services writer weighing pt on bedscale Subjective/Other Information Pt stated that he eats 10-15% of his meals d/t disliking what he receives and that he has not been contacted by kitchen staff to discuss options. Offered numbers to contact kitchen staff but pt declined stating he probably wound not remember to call. Spoke w/terrazzo supervisor and came to conclusion that pt had not heard previous phone calls. Pt gave menu selections to supervisor treating and pumping via phone. Jerker encouraged pt to keep phone in bed to better hear it and see flashing light indicator. Pt stated he drinks all of his Ensure Enlive. Percent of energy/protein needs met: 74%/100% Burn Absent Trauma Absent #1 Nutrition Diagnosis Malnutrition Diagnosis Progress(for reassessment Continues documentation) Is patient on ventilator? No Is Patient Ambulatory and/or Out of Bed No [facility] 1489.452 Kcal/Kg value to use for calculation 48 Approximate Energy Requirements Using 1992 kcal/Kg Calculation Used for Recommendations Kcal/kg Additional Notes Pro needs 1.2-1.5g/k-56g/ day Fluid needs 1ml/kcal Nutrition Intervention Change Diet Order: Continue current Add Supplement/Snack (indicate name/kcal Ensure Enlive TID (vanilla) /protein ) Provides kCal: 1,050 Provides Protein (gm) 60 Goal #1 PO intake of meals plus ONS to meet 100% energy and pro needs Goal #2 Wt maintenance and/or gain Anticipated Discharge Needs: [facility] soft diet Follow-Up By: 11/10/18 Additional Comments Follow for PO and ONS intakes
--- NOTE | 2018-11-07 12:53 | Progress Note ---
Assessment and Plan Assessment and plan: 73-year-old man who presented from local senior living. He was brought in because of a mass on the right side of his chest. The patient's has chronic shortness of breath and chronically has trouble talking and expressing himself. He was first thought to be an abscess, but a biopsy was done by surgery, and was found to be a mass with necrotic tissue. It was biopsied, pathology pending. The patient received empiric antibiotics at first, on solid mass was ruled to not be an abscess. The antibiotics were discontinued. -He had a positive blood culture which grew diphtheroids, ID consult appreciate d, likely a contaminant, no further w/o or rx recommended -Septic shock was ruled out, the blood pressure cuff was too large for his size. He received IV fluids. He received dietitian consult for malnutrition. 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 hx of of cancer severe malnutrition sepsis ruled out septic shock ruled out Diptheroid bactermia, likely contaminant History Interval history: Review of systems Constitutional: No fevers, no malaise, no joint pains CVS: No chest pain, no orthopnea, no dyspnea on exertion, no pedal edema GI: No abdominal pain, no diarrhea, no vomiting, no constipation Respiratory: No shortness of breath, no wheezing, no coughing Hospitalist Physical - Physical exam Narrative exam: cachectic HEENT: Moist mucous membranes, extraocular muscles intact, no lymphadenopathy Neck: supple Cardiac: S1-S2 heard Lungs: clear to auscultation bilaterally Abdomen: soft , nontender, nondistended, bowel sounds positive Extremities: no edema clubbing or cyanosis Skin: no rash or lesions Neurologic: no gross focal deficits Psych: calm, and cooperative - Constitutional Vitals: Temp Pulse Resp BP Pulse Ox 98.0 F 80 18 122/70 95 11/07/18 07:08 11/07/18 09:33 11/07/18 07:55 11/07/18 09:33 11/07/18 07:43 Results - Labs CBC & Chem 7: 11/02/18 05:00 11/02/18 05:00 Labs: Laboratory Last Values WBC 12.9 K/mm3 (4.5-11.0) H 11/02/18 05:00 RBC 3.43 M/mm3 (3.65-5.03) L 11/02/18 05:00 Hgb 10.8 gm/dl (11.8-15.2) L 11/02/18 05:00 Hct 32.0 % (35.5-45.6) L 11/02/18 05:00 MCV 93 fl (84-94) 11/02/18 05:00 MCH 32 pg (28-32) 11/02/18 05:00 MCHC 34 % (32-34) 11/02/18 05:00 RDW 14.8 % (13.2-15.2) 11/02/18 05:00 Plt Count 318 K/mm3 (140-440) 11/02/18 05:00 Lymph % (Auto) 12.0 % (13.4-35.0) L 11/02/18 05:00 [place] % (Auto) 7.0 % (0.0-7.3) 11/02/18 05:00 Eos % (Auto) 0.2 % (0.0-4.3) 11/02/18 05:00 Baso % (Auto) 0.1 % (0.0-1.8) 11/02/18 05:00 Lymph # 1.5 K/mm3 (1.2-5.4) 11/02/18 05:00 [place] # 0.9 K/mm3 (0.0-0.8) H 11/02/18 05:00 Eos # 0.0 K/mm3 (0.0-0.4) 11/02/18 05:00 Baso # 0.0 K/mm3 (0.0-0.1) 11/02/18 05:00 Add Manual Diff Complete 10/31/18 00:24 Total Counted 100 10/31/18 00:24 Seg Neutrophils % 80.7 % (40.0-70.0) H 11/02/18 05:00 Seg Neuts % (Manual) 92.0 % (40.0-70.0) H 10/31/18 00:24 Band Neutrophils % 0 % 10/31/18 00:24 Lymphocytes % (Manual) 5.0 % (13.4-35.0) L 10/31/18 00:24 Reactive Lymphs % (Man) 0 % 10/31/18 00:24 Monocytes % (Manual) 3.0 % (0.0-7.3) 10/31/18 00:24 Eosinophils % (Manual) 0 % (0.0-4.3) 10/31/18 00:24 Basophils % (Manual) 0 % (0.0-1.8) 10/31/18 00:24 Metamyelocytes % 0 % 10/31/18 00:24 Myelocytes % 0 % 10/31/18 00:24 Promyelocytes % 0 % 10/31/18 00:24 Blast Cells % 0 % 10/31/18 00:24 Nucleated RBC % Not Reportable 10/31/18 00:24 Seg Neutrophils # 10.4 K/mm3 (1.8-7.7) H 11/02/18 05:00 Seg Neutrophils # Man 24.8 K/mm3 (1.8-7.7) H 10/31/18 00:24 Band Neutrophils # 0.0 K/mm3 10/31/18 00:24 Lymphocytes # (Manual) 1.4 K/mm3 (1.2-5.4) 10/31/18 00:24 Abs React Lymphs (Man) 0.0 K/mm3 10/31/18 00:24 Monocytes # (Manual) 0.8 K/mm3 (0.0-0.8) 10/31/18 00:24 Eosinophils # (Manual) 0.0 K/mm3 (0.0-0.4) 10/31/18 00:24 Basophils # (Manual) 0.0 K/mm3 (0.0-0.1) 10/31/18 00:24 Metamyelocytes # 0.0 K/mm3 10/31/18 00:24 Myelocytes # 0.0 K/mm3 10/31/18 00:24 Promyelocytes # 0.0 K/mm3 10/31/18 00:24 Blast Cells # 0.0 K/mm3 10/31/18 00:24 WBC Morphology Not Reportable 10/31/18 00:24 Hypersegmented Neuts Not Reportable 10/31/18 00:24 Hyposegmented Neuts Not Reportable 10/31/18 00:24 Hypogranular Neuts Not Reportable 10/31/18 00:24 Smudge Cells Not Reportable 10/31/18 00:24 Toxic Granulation Not Reportable 10/31/18 00:24 Toxic Vacuolation Not Reportable 10/31/18 00:24 Dohle Bodies Not Reportable 10/31/18 00:24 Pelger-Huet Anomaly Not Reportable 10/31/18 00:24 Terrence Rods Not Reportable 10/31/18 00:24 Platelet Estimate Appears normal 10/31/18 00:24 Clumped Platelets Not Reportable 10/31/18 00:24 Plt Clumps, EDTA Not Reportable 10/31/18 00:24 Large Platelets Not Reportable 10/31/18 00:24 Giant Platelets Not Reportable 10/31/18 00:24 Platelet Satelliting Not Reportable 10/31/18 00:24 Plt Morphology Comment Not Reportable 10/31/18 00:24 RBC Morphology Not Reportable 10/31/18 00:24 Dimorphic RBCs Not Reportable 10/31/18 00:24 Polychromasia Not Reportable 10/31/18 00:24 Hypochromasia Not Reportable 10/31/18 00:24 Poikilocytosis Not Reportable 10/31/18 00:24 Anisocytosis 1+ 10/31/18 00:24 Microcytosis Not Reportable 10/31/18 00:24 Macrocytosis Not Reportable 10/31/18 00:24 Spherocytes Not Reportable 10/31/18 00:24 Pappenheimer Bodies Not Reportable 10/31/18 00:24 Sickle Cells Not Reportable 10/31/18 00:24 Target Cells Not Reportable 10/31/18 00:24 Tear Drop Cells Not Reportable 10/31/18 00:24 Ovalocytes 1+ 10/31/18 00:24 Helmet Cells Rare 10/31/18 00:24 [place] Bodies Not Reportable 10/31/18 00:24 [place] Rings Not Reportable 10/31/18 00:24 Olvin Cells 2+ 10/31/18 00:24 Bite Cells Not Reportable 10/31/18 00:24 Crenated Cell Not Reportable 10/31/18 00:24 Elliptocytes 1+ 10/31/18 00:24 Acanthocytes (Spur) Not Reportable 10/31/18 00:24 Rouleaux Not Reportable 10/31/18 00:24 Hemoglobin C Crystals Not Reportable 10/31/18 00:24 Schistocytes Not Reportable 10/31/18 00:24 Malaria parasites Not Reportable 10/31/18 00:24 Lalo Bodies Not Reportable 10/31/18 00:24 Hem Pathologist Commnt No 10/31/18 00:24 Sodium 137 mmol/L (137-145) 11/02/18 05:00 Potassium 4.0 mmol/L (3.6-5.0) 11/02/18 05:00 Chloride 103.9 mmol/L (98-107) 11/02/18 05:00 Carbon Dioxide 21 mmol/L (22-30) L 11/02/18 05:00 Anion Gap 16 mmol/L 11/02/18 05:00 BUN 10 mg/dL (9-20) 11/02/18 05:00 Creatinine 0.4 mg/dL (0.8-1.5) L 11/02/18 05:00 Estimated GFR > 60 ml/min 11/02/18 05:00 BUN/Creatinine Ratio 25 % 11/02/18 05:00 Glucose 102 mg/dL (75-100) H 11/02/18 05:00 POC Glucose 155 (70-105) H 11/02/18 15:23 Lactic Acid 1.70 mmol/L (0.7-2.0) 10/30/18 20:49 Calcium 8.6 mg/dL (8.4-10.2) 11/02/18 05:00 Total Bilirubin 0.40 mg/dL (0.1-1.2) 10/31/18 00:24 AST 19 units/L (5-40) 10/31/18 00:24 ALT 10 units/L (7-56) 10/31/18 00:24 Alkaline Phosphatase 121 units/L (35-129) 10/31/18 00:24 Total Protein 6.5 g/dL (6.3-8.2) 10/31/18 00:24 Albumin 3.4 g/dL (3.9-5) L 10/31/18 00:24 Albumin/Globulin Ratio 1.1 % 10/31/18 00:24 Urine Color Yellow (Yellow) 10/31/18 05:35 Urine Turbidity Slightly-cloudy (Clear) 10/31/18 05:35 Urine pH 5.0 (5.0-7.0) 10/31/18 05:35 Ur Specific [place] 1.017 (1.003-1.030) 10/31/18 05:35 Urine Protein <15 mg/dl mg/dL (Negative) 10/31/18 05:35 Urine Glucose (UA) Neg mg/dL (Negative) 10/31/18 05:35 Urine Ketones Tr mg/dL (Negative) 10/31/18 05:35 Urine Blood Neg (Negative) 10/31/18 05:35 Urine Nitrite Neg (Negative) 10/31/18 05:35 Urine Bilirubin Neg (Negative) 10/31/18 05:35 Urine Urobilinogen < 2.0 mg/dL (<2.0) 10/31/18 05:35 Ur Leukocyte Esterase Neg (Negative) 10/31/18 05:35 Urine WBC (Auto) 8.0 /HPF (0.0-6.0) H 10/31/18 05:35 Urine RBC (Auto) 29.0 /HPF (0.0-6.0) 10/31/18 05:35 U Epithel Cells (Auto) 1.0 /HPF (0-13.0) 10/31/18 05:35 Calcium Oxalate Crystal 1+ 10/31/18 05:35 Hyaline Casts 4 /LPF 10/31/18 05:35 Urine Mucus Few /HPF 10/31/18 05:35 Nutrition/Malnutrition Assess - Dietary Evaluation Nutrition/Malnutrition Findings: Nutrition Notes Start: 10/31/18 15:23 Freq: Status: Active Protocol: Document 11/05/18 14:33 RM (Rec: 11/05/18 15:15 RM [id number]) Nutrition Notes Initial or Follow up Reassessment Other Pertinent Diagnosis (R) lateral chest wall abscess Current Diet Mech Soft diet w/Ensure Enlive Vanilla TID Labs/Tests Reviewed Pertinent Medications Reviewed Height 6 ft 3 in Weight 41.5 kg [place] Body Weight (kg) 196.0 BMI 11.4 Weight change and time frame above wt from proposal writer weighing pt on bedscale Subjective/Other Information Pt stated that he eats 10-15% of his meals d/t disliking what he receives and that he has not been contacted by kitchen staff to discuss options. Offered numbers to contact kitchen staff but pt declined stating he probably wound not remember to call. Spoke w/instant potato processing supervisor and came to conclusion that pt had not heard previous phone calls. Pt gave menu selections to supervisor audit clerks via phone. Central Office Technician encouraged pt to keep phone in bed to better hear it and see flashing light indicator. Pt stated he drinks all of his Ensure Enlive. Percent of energy/protein needs met: 74%/100% Burn Absent Trauma Absent #1 Nutrition Diagnosis Malnutrition Diagnosis Progress(for reassessment Continues documentation) Is patient on ventilator? No Is Patient Ambulatory and/or Out of Bed No REE-([place]) 1489.452 Kcal/Kg value to use for calculation 48 Approximate Energy Requirements Using 1992 kcal/Kg Calculation Used for Recommendations Kcal/kg Additional Notes Pro needs 1.2-1.5g/k-56g/ day Fluid needs 1ml/kcal Nutrition Intervention Change Diet Order: Continue current Add Supplement/Snack (indicate name/kcal Ensure Enlive TID (vanilla) /protein ) Provides kCal: 1,050 Provides Protein (gm) 60 Goal #1 PO intake of meals plus ONS to meet 100% energy and pro needs Goal #2 Wt maintenance and/or gain Anticipated Discharge Needs: [facility] soft diet Follow-Up By: 11/10/18 Additional Comments Follow for PO and ONS intakes
--- NOTE | 2018-11-07 15:38 | Hem/Onc Progress Note ---
Assessment and Plan 1. Soft tissue lesion, right lung. Neoplasm versus abscess, seen by surgical team. 2. Bilateral lower lobe nodules, which may be neoplastic. 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 It is not clear if this was lung cancer or sarcoma. The patient is emaciated. 3. History of hypertension. Now, the BP is low. 4. History of loss of weight. 5. History of seizure disorder. There is a plan for biopsy. We will await for pathology. The nursing staff will call the family to find out who the patient's oncologist is. 6. Leukocytosis, likely reactive. 11/02/2018- pt has feeble slurred speech - ? oncologist at ? [facility]? 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 to wafer production lead worker 11/06 - d/w pt that he can come and see me in the clinic once his performance status improves, if he prefers 11/07- abdo distension - ? neoplastic - Patient Problems (1) Neoplasm of uncertain behavior of skin Current Visit: Yes Status: Acute Subjective Date of service: 11/07/18 Principal diagnosis: lung cancer Interval history: weak - abdo distension Objective - Constitutional Vitals: Last Vital Signs Temp 98.3 F 11/07/18 13:05 Pulse 85 11/07/18 13:48 Resp 18 11/07/18 13:48 BP 133/79 11/07/18 13:05 Pulse Ox 100 11/07/18 13:05 Pain Intensity (0-10): denies any pain General appearance: no acute distress, cachectic Performance status: 4-completely disabled - EENT Eyes: EOM intact ENT: clear oral mucosa Lymph node exam: negative cervical - Neck Neck: normal ROM - Respiratory Respiratory effort: Positive: normal Respiratory: bilateral: diminished - Cardiovascular Heart Sounds: Present: S1 & S2 Extremities: No edema - Gastrointestinal General gastrointestinal: Present: distended Rectal Exam: deferred - Genitourinary Male genitourinary: Present: deferred - Integumentary Integumentary: warm - Musculoskeletal Musculoskeletal: generalized weakness - Neurologic Neurologic: moves all extremities Medications & Allergies - Medications Allergies/Adverse Reactions: Allergies No Known Allergies Allergy (Verified 08/21/18 19:54) Home Medications: Home Medications Medication Instructions Recorded Confirmed Last Taken Type Lisinopril [Zestril] 20 mg PO DAILY 08/22/18 10/30/18 Unknown History Loperamide HCl [Imodium A-D] 2 mg PO Q6HR PRN 08/22/18 10/30/18 Unknown History Megestrol [Megace] 20 mg PO DAILY 08/22/18 10/30/18 Unknown History Mirtazapine [Remeron] 15 mg PO HS 08/22/18 10/30/18 Unknown History Multivit-Min/Iron Fum/Folic AC 1 each PO DAILY 08/22/18 10/30/18 Unknown History [Scclw-Zebginn-Gpgyfhog Tablet] Tramadol HCl [Ultram] 50 mg PO Q6H PRN 08/22/18 10/30/18 Unknown History ALBUTEROL NEB's [Proventil] 2.5 mg IH BID PRN 10/30/18 10/30/18 Unknown History Acetaminophen [Tylenol] 500 mg PO Q8HR PRN 10/30/18 10/30/18 Unknown History Budesonide [Pulmicort] 0.5 mg IH Q12HR PRN 10/30/18 10/30/18 Unknown History Cholestyramine (with Sugar) 4 gm PO DAILY 10/30/18 10/30/18 Unknown History [Questran Powder] Pantoprazole [Protonix] 40 mg PO QDAY 10/30/18 10/30/18 Unknown History Saccharomyces Boulardii [Florastor] 250 mg PO BID PRN 10/30/18 10/30/18 Unknown History levETIRAcetam [Keppra TAB] 500 mg PO BID 10/30/18 10/30/18 Unknown History Active Medications: Generic Name Dose Route Start Last Admin Trade Name Freq PRN Reason Stop Dose Admin Acetaminophen 650 mg 10/31/18 00:14 Tylenol PO Q4H PRN Pain MILD(1-3)/Fever >100.5/PINA Albuterol 2.5 mg 11/01/18 20:09 Proventil IH Q4HRT PRN Shortness Of Breath Albuterol/Ipratropium 1 ampul 11/02/18 09:00 11/07/18 13:38 Duoneb *Not For Prn Use* IH 1 ampul TIDRT SERGIO Administration Budesonide 0.5 mg 11/02/18 10:00 11/07/18 11:01 Pulmicort IH Not Given Q12HR SERGIO Cholestyramine Resin 4 gm 10/31/18 10:00 11/07/18 09:31 Questran PO 4 gm DAILY SERGIO Administration Hydromorphone HCl 0.5 mg 10/31/18 00:14 Dilaudid IV Q3H PRN Pain , Severe (7-10) Sodium Chloride 1,000 mls @ 75 mls/hr 10/31/18 01:00 11/06/18 21:33 Nacl 0.9% 1000 Ml IV 75 mls/hr DIRECT SERGIO Administration Sodium Chloride 1,000 mls @ 999 mls/hr 11/01/18 09:00 Nacl 0.9% 1000 Ml IV DIRECT SERGIO Levetiracetam 500 mg 10/31/18 22:30 11/07/18 09:32 Keppra PO 500 mg BID SERIGO Administration Lisinopril 20 mg 10/31/18 10:00 11/07/18 09:33 Zestril PO 20 mg DAILY SERGIO Administration Loperamide HCl 2 mg 10/31/18 02:46 Imodium PO Q6H PRN Diarrhea Megestrol Acetate 20 mg 10/31/18 10:00 11/07/18 09:32 Megace PO 20 mg DAILY SERGIO Administration Metoclopramide HCl 10 mg 10/31/18 00:14 Reglan IV Q6H PRN Nausea And Vomiting Mirtazapine 15 mg 10/31/18 22:00 11/06/18 21:31 Remeron Solutab PO 15 mg HS SERGIO Administration Miscellaneous Medication 250 mg 10/31/18 00:11 Saccharomyces Boulardii [Florastor] PO BID PRN Diarrhea Multivitamins/Minerals 1 each 10/31/18 10:00 11/07/18 09:32 Theragran-M Tab PO 1 each QDAY SERGIO Administration Ondansetron HCl 4 mg 10/31/18 00:14 Zofran IV Q8H PRN Nausea And Vomiting Pantoprazole Sodium 40 mg 10/31/18 10:00 11/07/18 09:32 Protonix PO 40 mg QDAY SERGIO Administration Sodium Chloride 10 ml 10/31/18 10:00 11/06/18 21:34 Sodium Chloride Flush Syringe 10 Ml IV 10 ml BID SERGIO Administration Sodium Chloride 10 ml 10/31/18 00:14 10/31/18 02:54 Sodium Chloride Flush Syringe 10 Ml IV 10 ml PRN PRN Administration LINE FLUSH Tramadol HCl 50 mg 10/31/18 00:11 Ultram PO Q6H PRN Pain, Moderate (4-6)
[2018-11-07] MEDS: NACL 0.9% 1000 ML 1,000 ML IV SCH (16:49)
[2018-11-07] MEDS: REMERON SOLUTAB PO SCH (21:28)
[2018-11-08] MEDS: NACL 0.9% 1000 ML 1,000 ML IV SCH (05:16)
[2018-11-08] MEDS: PULMICORT IH SCH ×2 (09:18→20:27)
[2018-11-08] MEDS: DUONEB *Not for PRN Use IH SCH ×3 (09:18→20:27)
[2018-11-08] MEDS: ZESTRIL PO SCH (10:09)
--- NOTE | 2018-11-08 10:48 | Progress Note ---
Assessment and Plan Assessment and plan: 73-year-old man who presented from local [facility]. He was brought in because of a mass on the right side of his chest. The patient's has chronic shortness of breath and chronically has trouble talking and expressing himself. He was first thought to be an abscess, but a biopsy was done by surgery, and was found to be a mass with necrotic tissue. It was biopsied, pathology pending. The patient received empiric antibiotics at first, on solid mass was ruled to not be an abscess. The antibiotics were discontinued. -He had a positive blood culture which grew diphtheroids, ID consult appreciate d, likely a contaminant, no further w/o or rx recommended -Septic shock was ruled out, the blood pressure cuff was too large for his size. He received IV fluids. He received dietitian consult for malnutrition. 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 hx of of cancer severe malnutrition sepsis ruled out septic shock ruled out Diptheroid bactermia, likely contaminant Constipation History Interval history: Review of systems Constitutional: No fevers, no malaise, no joint pains CVS: No chest pain, no orthopnea, no dyspnea on exertion, no pedal edema GI: No abdominal pain, no diarrhea, no vomiting, no constipation Respiratory: No shortness of breath, no wheezing, no coughing Hospitalist Physical - Physical exam Narrative exam: cachectic HEENT: Moist mucous membranes, extraocular muscles intact, no lymphadenopathy Neck: supple Cardiac: S1-S2 heard Lungs: clear to auscultation bilaterally Abdomen: soft , nontender, nondistended, bowel sounds positive Extremities: no edema clubbing or cyanosis Skin: no rash or lesions Neurologic: no gross focal deficits Psych: calm, and cooperative - Constitutional Vitals: Temp Pulse Resp BP Pulse Ox 98.2 F 81 16 118/65 99 11/08/18 07:17 11/08/18 10:09 11/08/18 09:19 11/08/18 10:09 11/08/18 07:17 Results - Labs CBC & Chem 7: 11/02/18 05:00 11/02/18 05:00 Labs: Laboratory Last Values WBC 12.9 K/mm3 (4.5-11.0) H 11/02/18 05:00 RBC 3.43 M/mm3 (3.65-5.03) L 11/02/18 05:00 Hgb 10.8 gm/dl (11.8-15.2) L 11/02/18 05:00 Hct 32.0 % (35.5-45.6) L 11/02/18 05:00 MCV 93 fl (84-94) 11/02/18 05:00 MCH 32 pg (28-32) 11/02/18 05:00 MCHC 34 % (32-34) 11/02/18 05:00 RDW 14.8 % (13.2-15.2) 11/02/18 05:00 Plt Count 318 K/mm3 (140-440) 11/02/18 05:00 Lymph % (Auto) 12.0 % (13.4-35.0) L 11/02/18 05:00 [place] % (Auto) 7.0 % (0.0-7.3) 11/02/18 05:00 Eos % (Auto) 0.2 % (0.0-4.3) 11/02/18 05:00 Baso % (Auto) 0.1 % (0.0-1.8) 11/02/18 05:00 Lymph # 1.5 K/mm3 (1.2-5.4) 11/02/18 05:00 [place] # 0.9 K/mm3 (0.0-0.8) H 11/02/18 05:00 Eos # 0.0 K/mm3 (0.0-0.4) 11/02/18 05:00 Baso # 0.0 K/mm3 (0.0-0.1) 11/02/18 05:00 Add Manual Diff Complete 10/31/18 00:24 Total Counted 100 10/31/18 00:24 Seg Neutrophils % 80.7 % (40.0-70.0) H 11/02/18 05:00 Seg Neuts % (Manual) 92.0 % (40.0-70.0) H 10/31/18 00:24 Band Neutrophils % 0 % 10/31/18 00:24 Lymphocytes % (Manual) 5.0 % (13.4-35.0) L 10/31/18 00:24 Reactive Lymphs % (Man) 0 % 10/31/18 00:24 Monocytes % (Manual) 3.0 % (0.0-7.3) 10/31/18 00:24 Eosinophils % (Manual) 0 % (0.0-4.3) 10/31/18 00:24 Basophils % (Manual) 0 % (0.0-1.8) 10/31/18 00:24 Metamyelocytes % 0 % 10/31/18 00:24 Myelocytes % 0 % 10/31/18 00:24 Promyelocytes % 0 % 10/31/18 00:24 Blast Cells % 0 % 10/31/18 00:24 Nucleated RBC % Not Reportable 10/31/18 00:24 Seg Neutrophils # 10.4 K/mm3 (1.8-7.7) H 11/02/18 05:00 Seg Neutrophils # Man 24.8 K/mm3 (1.8-7.7) H 10/31/18 00:24 Band Neutrophils # 0.0 K/mm3 10/31/18 00:24 Lymphocytes # (Manual) 1.4 K/mm3 (1.2-5.4) 10/31/18 00:24 Abs React Lymphs (Man) 0.0 K/mm3 10/31/18 00:24 Monocytes # (Manual) 0.8 K/mm3 (0.0-0.8) 10/31/18 00:24 Eosinophils # (Manual) 0.0 K/mm3 (0.0-0.4) 10/31/18 00:24 Basophils # (Manual) 0.0 K/mm3 (0.0-0.1) 10/31/18 00:24 Metamyelocytes # 0.0 K/mm3 10/31/18 00:24 Myelocytes # 0.0 K/mm3 10/31/18 00:24 Promyelocytes # 0.0 K/mm3 10/31/18 00:24 Blast Cells # 0.0 K/mm3 10/31/18 00:24 WBC Morphology Not Reportable 10/31/18 00:24 Hypersegmented Neuts Not Reportable 10/31/18 00:24 Hyposegmented Neuts Not Reportable 10/31/18 00:24 Hypogranular Neuts Not Reportable 10/31/18 00:24 Smudge Cells Not Reportable 10/31/18 00:24 Toxic Granulation Not Reportable 10/31/18 00:24 Toxic Vacuolation Not Reportable 10/31/18 00:24 Dohle Bodies Not Reportable 10/31/18 00:24 Pelger-Huet Anomaly Not Reportable 10/31/18 00:24 Terrence Rods Not Reportable 10/31/18 00:24 Platelet Estimate Appears normal 10/31/18 00:24 Clumped Platelets Not Reportable 10/31/18 00:24 Plt Clumps, EDTA Not Reportable 10/31/18 00:24 Large Platelets Not Reportable 10/31/18 00:24 Giant Platelets Not Reportable 10/31/18 00:24 Platelet Satelliting Not Reportable 10/31/18 00:24 Plt Morphology Comment Not Reportable 10/31/18 00:24 RBC Morphology Not Reportable 10/31/18 00:24 Dimorphic RBCs Not Reportable 10/31/18 00:24 Polychromasia Not Reportable 10/31/18 00:24 Hypochromasia Not Reportable 10/31/18 00:24 Poikilocytosis Not Reportable 10/31/18 00:24 Anisocytosis 1+ 10/31/18 00:24 Microcytosis Not Reportable 10/31/18 00:24 Macrocytosis Not Reportable 10/31/18 00:24 Spherocytes Not Reportable 10/31/18 00:24 Pappenheimer Bodies Not Reportable 10/31/18 00:24 Sickle Cells Not Reportable 10/31/18 00:24 Target Cells Not Reportable 10/31/18 00:24 Tear Drop Cells Not Reportable 10/31/18 00:24 Ovalocytes 1+ 10/31/18 00:24 Helmet Cells Rare 10/31/18 00:24 [place] Bodies Not Reportable 10/31/18 00:24 [place] Rings Not Reportable 10/31/18 00:24 [place] Cells 2+ 10/31/18 00:24 Bite Cells Not Reportable 10/31/18 00:24 Crenated Cell Not Reportable 10/31/18 00:24 Elliptocytes 1+ 10/31/18 00:24 Acanthocytes (Spur) Not Reportable 10/31/18 00:24 Rouleaux Not Reportable 10/31/18 00:24 Hemoglobin C Crystals Not Reportable 10/31/18 00:24 Schistocytes Not Reportable 10/31/18 00:24 Malaria parasites Not Reportable 10/31/18 00:24 Lalo Bodies Not Reportable 10/31/18 00:24 Hem Pathologist Commnt No 10/31/18 00:24 Sodium 137 mmol/L (137-145) 11/02/18 05:00 Potassium 4.0 mmol/L (3.6-5.0) 11/02/18 05:00 Chloride 103.9 mmol/L (98-107) 11/02/18 05:00 Carbon Dioxide 21 mmol/L (22-30) L 11/02/18 05:00 Anion Gap 16 mmol/L 11/02/18 05:00 BUN 10 mg/dL (9-20) 11/02/18 05:00 Creatinine 0.4 mg/dL (0.8-1.5) L 11/02/18 05:00 Estimated GFR > 60 ml/min 11/02/18 05:00 BUN/Creatinine Ratio 25 % 11/02/18 05:00 Glucose 102 mg/dL (75-100) H 11/02/18 05:00 POC Glucose 155 (70-105) H 11/02/18 15:23 Lactic Acid 1.70 mmol/L (0.7-2.0) 10/30/18 20:49 Calcium 8.6 mg/dL (8.4-10.2) 11/02/18 05:00 Total Bilirubin 0.40 mg/dL (0.1-1.2) 10/31/18 00:24 AST 19 units/L (5-40) 10/31/18 00:24 ALT 10 units/L (7-56) 10/31/18 00:24 Alkaline Phosphatase 121 units/L (35-129) 10/31/18 00:24 Total Protein 6.5 g/dL (6.3-8.2) 10/31/18 00:24 Albumin 3.4 g/dL (3.9-5) L 10/31/18 00:24 Albumin/Globulin Ratio 1.1 % 10/31/18 00:24 Urine Color Yellow (Yellow) 10/31/18 05:35 Urine Turbidity Slightly-cloudy (Clear) 10/31/18 05:35 Urine pH 5.0 (5.0-7.0) 10/31/18 05:35 Ur Specific [place] 1.017 (1.003-1.030) 10/31/18 05:35 Urine Protein <15 mg/dl mg/dL (Negative) 10/31/18 05:35 Urine Glucose (UA) Neg mg/dL (Negative) 10/31/18 05:35 Urine Ketones Tr mg/dL (Negative) 10/31/18 05:35 Urine Blood Neg (Negative) 10/31/18 05:35 Urine Nitrite Neg (Negative) 10/31/18 05:35 Urine Bilirubin Neg (Negative) 10/31/18 05:35 Urine Urobilinogen < 2.0 mg/dL (<2.0) 10/31/18 05:35 Ur Leukocyte Esterase Neg (Negative) 10/31/18 05:35 Urine WBC (Auto) 8.0 /HPF (0.0-6.0) H 10/31/18 05:35 Urine RBC (Auto) 29.0 /HPF (0.0-6.0) 10/31/18 05:35 U Epithel Cells (Auto) 1.0 /HPF (0-13.0) 10/31/18 05:35 Calcium Oxalate Crystal 1+ 10/31/18 05:35 Hyaline Casts 4 /LPF 10/31/18 05:35 Urine Mucus Few /HPF 10/31/18 05:35 Nutrition/Malnutrition Assess - Dietary Evaluation Nutrition/Malnutrition Findings: Nutrition Notes Start: 10/31/18 15:23 Freq: Status: Active Protocol: Document 11/05/18 14:33 RM (Rec: 11/05/18 15:15 RM [id number]) Nutrition Notes Initial or Follow up Reassessment Other Pertinent Diagnosis (R) lateral chest wall abscess Current Diet Mech Soft diet w/Ensure Enlive Vanilla TID Labs/Tests Reviewed Pertinent Medications Reviewed Height 6 ft 3 in Weight 41.5 kg Gregory Body Weight (kg) 196.0 BMI 11.4 Weight change and time frame above wt from headline writer weighing pt on bedscale Subjective/Other Information Pt stated that he eats 10-15% of his meals d/t disliking what he receives and that he has not been contacted by kitchen staff to discuss options. Offered numbers to contact kitchen staff but pt declined stating he probably wound not remember to call. Spoke w/restaurant kitchen and service manager and came to conclusion that pt had not heard previous phone calls. Pt gave menu selections to packaging supervisor via phone. Spring Encaser encouraged pt to keep phone in bed to better hear it and see flashing light indicator. Pt stated he drinks all of his Ensure Enlive. Percent of energy/protein needs met: 74%/100% Burn Absent Trauma Absent #1 Nutrition Diagnosis Malnutrition Diagnosis Progress(for reassessment Continues documentation) Is patient on ventilator? No Is Patient Ambulatory and/or Out of Bed No REE-([place]-St. Jeor-confined to bed) 1489.452 Kcal/Kg value to use for calculation 48 Approximate Energy Requirements Using 1992 kcal/Kg Calculation Used for Recommendations Kcal/kg Additional Notes Pro needs 1.2-1.5g/k-56g/ day Fluid needs 1ml/kcal Nutrition Intervention Change Diet Order: Continue current Add Supplement/Snack (indicate name/kcal Ensure Enlive TID (vanilla) /protein ) Provides kCal: 1,050 Provides Protein (gm) 60 Goal #1 PO intake of meals plus ONS to meet 100% energy and pro needs Goal #2 Wt maintenance and/or gain Anticipated Discharge Needs: [facility] soft diet Follow-Up By: 11/10/18 Additional Comments Follow for PO and ONS intakes
[2018-11-08] MEDS: PROTONIX PO SCH (11:00)
[2018-11-08] MEDS: SODIUM CHLORIDE FLUSH SYRINGE 10 ML IV SCH ×2 (11:00→21:38)
[2018-11-08] MEDS: KEPPRA PO SCH ×2 (11:00→21:38)
[2018-11-08] MEDS: THERAGRAN-M Tab PO SCH (11:00)
[2018-11-08] MEDS: QUESTRAN PO SCH (11:00)
[2018-11-08] MEDS: MEGACE PO SCH (11:00)
--- NOTE | 2018-11-08 11:54 | Cat Scan Report ---
FINAL REPORT EXAM: CT ABDOMEN PELVIS W CON HISTORY: abdo distention, Lung ca TECHNIQUE: CT of the abdomen and pelvis with IV contrast. Coronal and sagittal reconstructed imaging provided. PRIORS: CT abdomen pelvis August 21, 2018. FINDINGS: ABDOMEN: Partially imaged bilateral pleural effusions. Spiculated nodules in the right lung suggest metastatic disease. Large mass in the right lower lung measures 4.3 x 2.5 cm and is partially imaged. Series 2:38 demonstrates a complex mass in the right intercostal region measuring 2.7 x 3.6 cm. Parti al destruction of the right adjacent 8th rib identified. Partial area of low attenuation within the m ass may represent necrosis or abscess. Stable cardiomegaly. No pericardial effusion. Heterogeneous decreased attenuation to the liver. No distinct enhancing lesion. Contracted gallbladder, collapsed stomach, spleen, and pancreas are unremarkable. Adrenal glands are not clearly identified. Kidneys: Symmetrical cortical enhancement. Subcentimeter cortical densities in both kidneys are too s mall to accurately characterize but statistically probably represent cysts. No hydronephrosis. IVC is unremarkable. No aortic aneurysm or dissection. Mild aortic atherosclerotic disease. No periaortic or retroperitoneal mass or adenopathy. Postsurgical changes in the right colon. Marked stool throughout the colon. No wall thickening. No st randing. Small bowel loops are filled with contrast. Mild distension. No significant air-fluid levels. No wall thickening. Mesentery is unremarkable. No free air. No free fluid. PELVIS: Bladder is unremarkable. There is no pelvic mass or adenopathy. Inguinal regions are unremarkable. Bones: No suspicious osseous lesions on this limited examination of the skeleton. Metastatic disease better evaluated with bone scan. Degenerative changes are in the spine. IMPRESSION: Right lower lobe mass with multiple pulmonary nodules. Findings suggest malignancy with metastatic di sease. Larger compared to prior. Necrotic lesion in the right lateral thoracic wall with right 8th rib destruction. Larger compared to prior. Suspect metastatic disease. Marked stool throughout the colon. Suspect constipation. Mild distension of the small bowel loops wit h contrast suggest mild ileus related to constipation. Differential diagnosis would include developin g obstruction. Nonspecific heterogeneous appearance to the liver. Probable bilateral renal cysts.
[2018-11-08] MEDS ORDERED: SENOKOT S PO PRN ×2 (12:47→22:00)
[2018-11-08] MEDS ORDERED: GLYCERIN ADULT 2 GM PR PRN (14:00)
[2018-11-08] MEDS ORDERED: DULCOLAX PR PRN (14:00)
--- NOTE | 2018-11-08 21:37 | Hem/Onc Progress Note ---
Assessment and Plan 1. Soft tissue lesion, right lung. Neoplasm versus abscess, seen by surgical team. 2. Bilateral lower lobe nodules, which may be neoplastic. 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 It is not clear if this was lung cancer or sarcoma. The patient is emaciated. 3. History of hypertension. Now, the BP is low. 4. History of loss of weight. 5. History of seizure disorder. There is a plan for biopsy. We will await for pathology. The nursing staff will call the family to find out who the patient's oncologist is. 6. Leukocytosis, likely reactive. 11/02/2018- pt has feeble slurred speech - ? oncologist at ? [facility]? 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 to workers compensation consultant 11/06 - d/w pt that he can come and see me in the clinic once his performance status improves, if he prefers 11/07- abdo distension - ? neoplastic pt had CT abdo - pt had a BM - d/w RN - Patient Problems (1) Neoplasm of uncertain behavior of skin Current Visit: Yes Status: Acute Subjective Date of service: 11/08/18 Principal diagnosis: lung cancer Interval history: d/w RN - had BM Objective - Constitutional Vitals: Last Vital Signs Temp 98.6 F 11/08/18 19:44 Pulse 91 H 11/08/18 19:44 Resp 18 11/08/18 19:44 BP 110/70 11/08/18 19:44 Pulse Ox 100 11/08/18 20:28 Pain Intensity (0-10): denies any pain General appearance: no acute distress Performance status: 4-completely disabled - EENT Eyes: EOM intact ENT: clear oral mucosa Lymph node exam: negative cervical - Neck Neck: normal ROM - Respiratory Respiratory effort: Positive: normal Respiratory: bilateral: diminished - Cardiovascular Heart Sounds: Present: S1 & S2 Extremities: No edema - Gastrointestinal General gastrointestinal: Present: soft, distended Rectal Exam: deferred - Genitourinary Male genitourinary: Present: deferred - Integumentary Integumentary: warm - Musculoskeletal Musculoskeletal: strength equal bilaterally - Neurologic Neurologic: moves all extremities Medications & Allergies - Medications Allergies/Adverse Reactions: Allergies No Known Allergies Allergy (Verified 08/21/18 19:54) Home Medications: Home Medications Medication Instructions Recorded Confirmed Last Taken Type Lisinopril [Zestril] 20 mg PO DAILY 08/22/18 10/30/18 Unknown History Loperamide HCl [Imodium A-D] 2 mg PO Q6HR PRN 08/22/18 10/30/18 Unknown History Megestrol [Megace] 20 mg PO DAILY 08/22/18 10/30/18 Unknown History Mirtazapine [Remeron] 15 mg PO HS 08/22/18 10/30/18 Unknown History Multivit-Min/Iron Fum/Folic AC 1 each PO DAILY 08/22/18 10/30/18 Unknown History [Laesp-Nkmlixa-Wsijybgm Tablet] Tramadol HCl [Ultram] 50 mg PO Q6H PRN 08/22/18 10/30/18 Unknown History ALBUTEROL NEB's [Proventil] 2.5 mg IH BID PRN 10/30/18 10/30/18 Unknown History Acetaminophen [Tylenol] 500 mg PO Q8HR PRN 10/30/18 10/30/18 Unknown History Budesonide [Pulmicort] 0.5 mg IH Q12HR PRN 10/30/18 10/30/18 Unknown History Cholestyramine (with Sugar) 4 gm PO DAILY 10/30/18 10/30/18 Unknown History [Questran Powder] Pantoprazole [Protonix] 40 mg PO QDAY 10/30/18 10/30/18 Unknown History Saccharomyces Boulardii [Florastor] 250 mg PO BID PRN 10/30/18 10/30/18 Unknown History levETIRAcetam [Keppra TAB] 500 mg PO BID 10/30/18 10/30/18 Unknown History Active Medications: Generic Name Dose Route Start Last Admin Trade Name Freq PRN Reason Stop Dose Admin Acetaminophen 650 mg 10/31/18 00:14 Tylenol PO Q4H PRN Pain MILD(1-3)/Fever >100.5/PINA Albuterol 2.5 mg 11/01/18 20:09 Proventil IH Q4HRT PRN Shortness Of Breath Albuterol/Ipratropium 1 ampul 11/02/18 09:00 11/08/18 20:27 Duoneb *Not For Prn Use* IH Not Given TIDRT SERGIO Bisacodyl 10 mg 11/08/18 14:00 Dulcolax IL Q72H PRN Constipation Budesonide 0.5 mg 11/08/18 20:15 Pulmicort IH Q12HRT SERGIO Cholestyramine Resin 4 gm 10/31/18 10:00 11/08/18 11:00 Questran PO 4 gm DAILY SERGIO Administration Glycerin 1 supp 11/08/18 14:00 Glycerin Adult 2 Gm IL QDAY PRN Constipation Hydromorphone HCl 0.5 mg 10/31/18 00:14 Dilaudid IV Q3H PRN Pain , Severe (7-10) Sodium Chloride 1,000 mls @ 75 mls/hr 10/31/18 01:00 11/08/18 05:16 Nacl 0.9% 1000 Ml IV 75 mls/hr DIRECT SERGIO Administration Sodium Chloride 1,000 mls @ 999 mls/hr 11/01/18 09:00 Nacl 0.9% 1000 Ml IV DIRECT SERGIO Levetiracetam 500 mg 10/31/18 22:30 11/08/18 11:00 Keppra PO 500 mg BID SERGIO Administration Lisinopril 20 mg 10/31/18 10:00 11/08/18 10:09 Zestril PO Not Given DAILY SERGIO Loperamide HCl 2 mg 10/31/18 02:46 Imodium PO Q6H PRN Diarrhea Megestrol Acetate 20 mg 10/31/18 10:00 11/08/18 11:00 Megace PO 20 mg DAILY SERGIO Administration Metoclopramide HCl 10 mg 10/31/18 00:14 Reglan IV Q6H PRN Nausea And Vomiting Mirtazapine 15 mg 10/31/18 22:00 11/07/18 21:28 Remeron Solutab PO 15 mg HS SERGIO Administration Miscellaneous Medication 250 mg 10/31/18 00:11 Saccharomyces Boulardii [Florastor] PO BID PRN Diarrhea Multivitamins/Minerals 1 each 10/31/18 10:00 11/08/18 11:00 Theragran-M Tab PO 1 each QDAY SERGIO Administration Ondansetron HCl 4 mg 10/31/18 00:14 Zofran IV Q8H PRN Nausea And Vomiting Pantoprazole Sodium 40 mg 10/31/18 10:00 11/08/18 11:00 Protonix PO 40 mg QDAY SERGIO Administration Polyethylene Glycol 17 gm 11/09/18 10:00 Miralax 3350 PO QDAY SERGIO Senna/Docusate Sodium 2 tab 11/08/18 22:00 Senokot S PO Q12H PRN Laxative Effect Sodium Chloride 10 ml 10/31/18 10:00 11/08/18 11:00 Sodium Chloride Flush Syringe 10 Ml IV 10 ml BID SERGIO Administration Sodium Chloride 10 ml 10/31/18 00:14 10/31/18 02:54 Sodium Chloride Flush Syringe 10 Ml IV 10 ml PRN PRN Administration LINE FLUSH Tramadol HCl 50 mg 10/31/18 00:11 Ultram PO Q6H PRN Pain, Moderate (4-6)
[2018-11-08] MEDS: REMERON SOLUTAB PO SCH (21:38)
--- NOTE | 2018-11-09 08:10 | Hem/Onc Progress Note ---
Assessment and Plan 1. Soft tissue lesion, right lung. Neoplasm versus abscess, seen by surgical team. 2. Bilateral lower lobe nodules, which may be neoplastic. 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 It is not clear if this was lung cancer or sarcoma. The patient is emaciated. 3. History of hypertension. Now, the BP is low. 4. History of loss of weight. 5. History of seizure disorder. There is a plan for biopsy. We will await for pathology. The nursing staff will call the family to find out who the patient's oncologist is. 6. Leukocytosis, likely reactive. 11/02/2018- pt has feeble slurred speech - ? oncologist at ? [facility]? 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 neoplastic pt had CT abdo - pt had a BM - d/w RN 11/09 - placement pending - Patient Problems (1) Neoplasm of uncertain behavior of skin Current Visit: Yes Status: Acute Subjective Date of service: 11/09/18 Principal diagnosis: LUNG CANCER Interval history: pt waiting for placement Objective - Constitutional Vitals: Last Vital Signs Temp 98.9 F 11/09/18 07:42 Pulse 78 11/09/18 07:42 Resp 16 11/09/18 07:42 BP 115/64 11/09/18 07:42 Pulse Ox 100 11/09/18 07:42 Pain Intensity (0-10): denies any pain General appearance: no acute distress Performance status: 4-completely disabled - EENT Eyes: EOM intact ENT: clear oral mucosa Lymph node exam: negative cervical, negative supraclavicular - Respiratory Respiratory effort: Positive: normal Respiratory: bilateral: diminished - Cardiovascular Heart Sounds: Present: S1 & S2 Extremities: No edema - Gastrointestinal General gastrointestinal: Present: soft Rectal Exam: deferred - Genitourinary Male genitourinary: Present: deferred - Integumentary Integumentary: warm - Musculoskeletal Musculoskeletal: generalized weakness - Neurologic Neurologic: moves all extremities Medications & Allergies - Medications Allergies/Adverse Reactions: Allergies No Known Allergies Allergy (Verified 08/21/18 19:54) Home Medications: Home Medications Medication Instructions Recorded Confirmed Last Taken Type Lisinopril [Zestril] 20 mg PO DAILY 08/22/18 10/30/18 Unknown History Loperamide HCl [Imodium A-D] 2 mg PO Q6HR PRN 08/22/18 10/30/18 Unknown History Megestrol [Megace] 20 mg PO DAILY 08/22/18 10/30/18 Unknown History Mirtazapine [Remeron] 15 mg PO HS 08/22/18 10/30/18 Unknown History Multivit-Min/Iron Fum/Folic AC 1 each PO DAILY 08/22/18 10/30/18 Unknown History [Dozgp-Lwocmcz-Sxzjrzlm Tablet] Tramadol HCl [Ultram] 50 mg PO Q6H PRN 08/22/18 10/30/18 Unknown History ALBUTEROL NEB's [Proventil] 2.5 mg IH BID PRN 10/30/18 10/30/18 Unknown History Acetaminophen [Tylenol] 500 mg PO Q8HR PRN 10/30/18 10/30/18 Unknown History Budesonide [Pulmicort] 0.5 mg IH Q12HR PRN 10/30/18 10/30/18 Unknown History Cholestyramine (with Sugar) 4 gm PO DAILY 10/30/18 10/30/18 Unknown History [Questran Powder] Pantoprazole [Protonix] 40 mg PO QDAY 10/30/18 10/30/18 Unknown History Saccharomyces Boulardii [Florastor] 250 mg PO BID PRN 10/30/18 10/30/18 Unknown History levETIRAcetam [Keppra TAB] 500 mg PO BID 10/30/18 10/30/18 Unknown History Active Medications: Generic Name Dose Route Start Last Admin Trade Name Freq PRN Reason Stop Dose Admin Acetaminophen 650 mg 10/31/18 00:14 Tylenol PO Q4H PRN Pain MILD(1-3)/Fever >100.5/PINA Albuterol 2.5 mg 11/01/18 20:09 Proventil IH Q4HRT PRN Shortness Of Breath Albuterol/Ipratropium 1 ampul 11/02/18 09:00 11/08/18 20:27 Duoneb *Not For Prn Use* IH Not Given TIDRT SERIGO Bisacodyl 10 mg 11/08/18 14:00 Dulcolax NV Q72H PRN Constipation Budesonide 0.5 mg 11/08/18 20:15 11/08/18 20:27 Pulmicort IH Not Given Q12HRT SERGIO Cholestyramine Resin 4 gm 10/31/18 10:00 11/08/18 11:00 Questran PO 4 gm DAILY SERGIO Administration Glycerin 1 supp 11/08/18 14:00 Glycerin Adult 2 Gm NV QDAY PRN Constipation Hydromorphone HCl 0.5 mg 10/31/18 00:14 Dilaudid IV Q3H PRN Pain , Severe (7-10) Sodium Chloride 1,000 mls @ 75 mls/hr 10/31/18 01:00 11/08/18 05:16 Nacl 0.9% 1000 Ml IV 75 mls/hr DIRECT SERGIO Administration Sodium Chloride 1,000 mls @ 999 mls/hr 11/01/18 09:00 Nacl 0.9% 1000 Ml IV DIRECT SERGIO Levetiracetam 500 mg 10/31/18 22:30 11/08/18 21:38 Keppra PO 500 mg BID SERGIO Administration Lisinopril 20 mg 10/31/18 10:00 11/08/18 10:09 Zestril PO Not Given DAILY SERGIO Loperamide HCl 2 mg 10/31/18 02:46 Imodium PO Q6H PRN Diarrhea Megestrol Acetate 20 mg 10/31/18 10:00 11/08/18 11:00 Megace PO 20 mg DAILY SERGIO Administration Metoclopramide HCl 10 mg 10/31/18 00:14 Reglan IV Q6H PRN Nausea And Vomiting Mirtazapine 15 mg 10/31/18 22:00 11/08/18 21:38 Remeron Solutab PO 15 mg HS SERGIO Administration Miscellaneous Medication 250 mg 10/31/18 00:11 Saccharomyces Boulardii [Florastor] PO BID PRN Diarrhea Multivitamins/Minerals 1 each 10/31/18 10:00 11/08/18 11:00 Theragran-M Tab PO 1 each QDAY SERGIO Administration Ondansetron HCl 4 mg 10/31/18 00:14 Zofran IV Q8H PRN Nausea And Vomiting Pantoprazole Sodium 40 mg 10/31/18 10:00 11/08/18 11:00 Protonix PO 40 mg QDAY SERGIO Administration Polyethylene Glycol 17 gm 11/09/18 10:00 Miralax 3350 PO QDAY SERGIO Senna/Docusate Sodium 2 tab 11/08/18 22:00 Senokot S PO Q12H PRN Laxative Effect Sodium Chloride 10 ml 10/31/18 10:00 11/08/18 21:38 Sodium Chloride Flush Syringe 10 Ml IV 10 ml BID SERGIO Administration Sodium Chloride 10 ml 10/31/18 00:14 10/31/18 02:54 Sodium Chloride Flush Syringe 10 Ml IV 10 ml PRN PRN Administration LINE FLUSH Tramadol HCl 50 mg 10/31/18 00:11 Ultram PO Q6H PRN Pain, Moderate (4-6)
[2018-11-09] MEDS: PULMICORT IH SCH ×2 (08:50→20:07)
[2018-11-09] MEDS: DUONEB *Not for PRN Use IH SCH ×3 (08:50→20:07)
[2018-11-09] MEDS: QUESTRAN PO SCH (10:39)
[2018-11-09] MEDS: KEPPRA PO SCH ×2 (10:39→22:29)
[2018-11-09] MEDS: MIRALAX 3350 PO SCH (10:39)
[2018-11-09] MEDS: PROTONIX PO SCH (10:40)
[2018-11-09] MEDS: MEGACE PO SCH (10:40)
[2018-11-09] MEDS: THERAGRAN-M Tab PO SCH (10:40)
[2018-11-09] MEDS: ZESTRIL PO SCH (10:41)
[2018-11-09] MEDS: SODIUM CHLORIDE FLUSH SYRINGE 10 ML IV SCH ×2 (10:41→22:29)
--- NOTE | 2018-11-09 14:24 | Progress Note ---
Assessment and Plan Assessment and plan: 73-year-old man who presented from local halfway. He was brought in because of a mass on the right side of his chest. The patient's has chronic shortness of breath and chronically has trouble talking and expressing himself. He was first thought to be an abscess, but a biopsy was done by surgery, and was found to be a mass with necrotic tissue. It was biopsied, pathology pending. The patient received empiric antibiotics at first, on solid mass was ruled to not be an abscess. The antibiotics were discontinued. -He had a positive blood culture which grew diphtheroids, ID consult appreciate d, likely a contaminant, no further w/o or rx recommended -Septic shock was ruled out, the blood pressure cuff was too large for his size. He received IV fluids. He received dietitian consult for malnutrition. 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 hx of of cancer severe malnutrition sepsis ruled out septic shock ruled out Diptheroid bactermia, likely contaminant Constipation History Interval history: Review of systems Constitutional: No fevers, no malaise, no joint pains CVS: No chest pain, no orthopnea, no dyspnea on exertion, no pedal edema GI: No abdominal pain, no diarrhea, no vomiting, no constipation Respiratory: No shortness of breath, no wheezing, no coughing Hospitalist Physical - Physical exam Narrative exam: cachectic HEENT: Moist mucous membranes, extraocular muscles intact, no lymphadenopathy Neck: supple Cardiac: S1-S2 heard Lungs: clear to auscultation bilaterally Abdomen: soft , nontender, nondistended, bowel sounds positive Extremities: no edema clubbing or cyanosis Skin: no rash or lesions Neurologic: no gross focal deficits Psych: calm, and cooperative - Constitutional Vitals: Temp Pulse Resp BP Pulse Ox 97.7 F 87 18 100/60 100 11/09/18 13:14 11/09/18 13:14 11/09/18 13:14 11/09/18 13:14 11/09/18 13:14 Results - Labs CBC & Chem 7: 11/02/18 05:00 11/02/18 05:00 Labs: Laboratory Last Values WBC 12.9 K/mm3 (4.5-11.0) H 11/02/18 05:00 RBC 3.43 M/mm3 (3.65-5.03) L 11/02/18 05:00 Hgb 10.8 gm/dl (11.8-15.2) L 11/02/18 05:00 Hct 32.0 % (35.5-45.6) L 11/02/18 05:00 MCV 93 fl (84-94) 11/02/18 05:00 MCH 32 pg (28-32) 11/02/18 05:00 MCHC 34 % (32-34) 11/02/18 05:00 RDW 14.8 % (13.2-15.2) 11/02/18 05:00 Plt Count 318 K/mm3 (140-440) 11/02/18 05:00 Lymph % (Auto) 12.0 % (13.4-35.0) L 11/02/18 05:00 [place] % (Auto) 7.0 % (0.0-7.3) 11/02/18 05:00 Eos % (Auto) 0.2 % (0.0-4.3) 11/02/18 05:00 Baso % (Auto) 0.1 % (0.0-1.8) 11/02/18 05:00 Lymph # 1.5 K/mm3 (1.2-5.4) 11/02/18 05:00 [place] # 0.9 K/mm3 (0.0-0.8) H 11/02/18 05:00 Eos # 0.0 K/mm3 (0.0-0.4) 11/02/18 05:00 Baso # 0.0 K/mm3 (0.0-0.1) 11/02/18 05:00 Add Manual Diff Complete 10/31/18 00:24 Total Counted 100 10/31/18 00:24 Seg Neutrophils % 80.7 % (40.0-70.0) H 11/02/18 05:00 Seg Neuts % (Manual) 92.0 % (40.0-70.0) H 10/31/18 00:24 Band Neutrophils % 0 % 10/31/18 00:24 Lymphocytes % (Manual) 5.0 % (13.4-35.0) L 10/31/18 00:24 Reactive Lymphs % (Man) 0 % 10/31/18 00:24 Monocytes % (Manual) 3.0 % (0.0-7.3) 10/31/18 00:24 Eosinophils % (Manual) 0 % (0.0-4.3) 10/31/18 00:24 Basophils % (Manual) 0 % (0.0-1.8) 10/31/18 00:24 Metamyelocytes % 0 % 10/31/18 00:24 Myelocytes % 0 % 10/31/18 00:24 Promyelocytes % 0 % 10/31/18 00:24 Blast Cells % 0 % 10/31/18 00:24 Nucleated RBC % Not Reportable 10/31/18 00:24 Seg Neutrophils # 10.4 K/mm3 (1.8-7.7) H 11/02/18 05:00 Seg Neutrophils # Man 24.8 K/mm3 (1.8-7.7) H 10/31/18 00:24 Band Neutrophils # 0.0 K/mm3 10/31/18 00:24 Lymphocytes # (Manual) 1.4 K/mm3 (1.2-5.4) 10/31/18 00:24 Abs React Lymphs (Man) 0.0 K/mm3 10/31/18 00:24 Monocytes # (Manual) 0.8 K/mm3 (0.0-0.8) 10/31/18 00:24 Eosinophils # (Manual) 0.0 K/mm3 (0.0-0.4) 10/31/18 00:24 Basophils # (Manual) 0.0 K/mm3 (0.0-0.1) 10/31/18 00:24 Metamyelocytes # 0.0 K/mm3 10/31/18 00:24 Myelocytes # 0.0 K/mm3 10/31/18 00:24 Promyelocytes # 0.0 K/mm3 10/31/18 00:24 Blast Cells # 0.0 K/mm3 10/31/18 00:24 WBC Morphology Not Reportable 10/31/18 00:24 Hypersegmented Neuts Not Reportable 10/31/18 00:24 Hyposegmented Neuts Not Reportable 10/31/18 00:24 Hypogranular Neuts Not Reportable 10/31/18 00:24 Smudge Cells Not Reportable 10/31/18 00:24 Toxic Granulation Not Reportable 10/31/18 00:24 Toxic Vacuolation Not Reportable 10/31/18 00:24 Dohle Bodies Not Reportable 10/31/18 00:24 Pelger-Huet Anomaly Not Reportable 10/31/18 00:24 Terrence Rods Not Reportable 10/31/18 00:24 Platelet Estimate Appears normal 10/31/18 00:24 Clumped Platelets Not Reportable 10/31/18 00:24 Plt Clumps, EDTA Not Reportable 10/31/18 00:24 Large Platelets Not Reportable 10/31/18 00:24 Giant Platelets Not Reportable 10/31/18 00:24 Platelet Satelliting Not Reportable 10/31/18 00:24 Plt Morphology Comment Not Reportable 10/31/18 00:24 RBC Morphology Not Reportable 10/31/18 00:24 Dimorphic RBCs Not Reportable 10/31/18 00:24 Polychromasia Not Reportable 10/31/18 00:24 Hypochromasia Not Reportable 10/31/18 00:24 Poikilocytosis Not Reportable 10/31/18 00:24 Anisocytosis 1+ 10/31/18 00:24 Microcytosis Not Reportable 10/31/18 00:24 Macrocytosis Not Reportable 10/31/18 00:24 Spherocytes Not Reportable 10/31/18 00:24 Pappenheimer Bodies Not Reportable 10/31/18 00:24 Sickle Cells Not Reportable 10/31/18 00:24 Target Cells Not Reportable 10/31/18 00:24 Tear Drop Cells Not Reportable 10/31/18 00:24 Ovalocytes 1+ 10/31/18 00:24 Helmet Cells Rare 10/31/18 00:24 [place] Bodies Not Reportable 10/31/18 00:24 [place] Rings Not Reportable 10/31/18 00:24 Olvin Cells 2+ 10/31/18 00:24 Bite Cells Not Reportable 10/31/18 00:24 Crenated Cell Not Reportable 10/31/18 00:24 Elliptocytes 1+ 10/31/18 00:24 Acanthocytes (Spur) Not Reportable 10/31/18 00:24 Rouleaux Not Reportable 10/31/18 00:24 Hemoglobin C Crystals Not Reportable 10/31/18 00:24 Schistocytes Not Reportable 10/31/18 00:24 Malaria parasites Not Reportable 10/31/18 00:24 Lalo Bodies Not Reportable 10/31/18 00:24 Hem Pathologist Commnt No 10/31/18 00:24 Sodium 137 mmol/L (137-145) 11/02/18 05:00 Potassium 4.0 mmol/L (3.6-5.0) 11/02/18 05:00 Chloride 103.9 mmol/L (98-107) 11/02/18 05:00 Carbon Dioxide 21 mmol/L (22-30) L 11/02/18 05:00 Anion Gap 16 mmol/L 11/02/18 05:00 BUN 10 mg/dL (9-20) 11/02/18 05:00 Creatinine 0.4 mg/dL (0.8-1.5) L 11/02/18 05:00 Estimated GFR > 60 ml/min 11/02/18 05:00 BUN/Creatinine Ratio 25 % 11/02/18 05:00 Glucose 102 mg/dL (75-100) H 11/02/18 05:00 POC Glucose 155 (70-105) H 11/02/18 15:23 Lactic Acid 1.70 mmol/L (0.7-2.0) 10/30/18 20:49 Calcium 8.6 mg/dL (8.4-10.2) 11/02/18 05:00 Total Bilirubin 0.40 mg/dL (0.1-1.2) 10/31/18 00:24 AST 19 units/L (5-40) 10/31/18 00:24 ALT 10 units/L (7-56) 10/31/18 00:24 Alkaline Phosphatase 121 units/L (35-129) 10/31/18 00:24 Total Protein 6.5 g/dL (6.3-8.2) 10/31/18 00:24 Albumin 3.4 g/dL (3.9-5) L 10/31/18 00:24 Albumin/Globulin Ratio 1.1 % 10/31/18 00:24 Urine Color Yellow (Yellow) 10/31/18 05:35 Urine Turbidity Slightly-cloudy (Clear) 10/31/18 05:35 Urine pH 5.0 (5.0-7.0) 10/31/18 05:35 Ur Specific [place] 1.017 (1.003-1.030) 10/31/18 05:35 Urine Protein <15 mg/dl mg/dL (Negative) 10/31/18 05:35 Urine Glucose (UA) Neg mg/dL (Negative) 10/31/18 05:35 Urine Ketones Tr mg/dL (Negative) 10/31/18 05:35 Urine Blood Neg (Negative) 10/31/18 05:35 Urine Nitrite Neg (Negative) 10/31/18 05:35 Urine Bilirubin Neg (Negative) 10/31/18 05:35 Urine Urobilinogen < 2.0 mg/dL (<2.0) 10/31/18 05:35 Ur Leukocyte Esterase Neg (Negative) 10/31/18 05:35 Urine WBC (Auto) 8.0 /HPF (0.0-6.0) H 10/31/18 05:35 Urine RBC (Auto) 29.0 /HPF (0.0-6.0) 10/31/18 05:35 U Epithel Cells (Auto) 1.0 /HPF (0-13.0) 10/31/18 05:35 Calcium Oxalate Crystal 1+ 10/31/18 05:35 Hyaline Casts 4 /LPF 10/31/18 05:35 Urine Mucus Few /HPF 10/31/18 05:35 Nutrition/Malnutrition Assess - Dietary Evaluation Nutrition/Malnutrition Findings: Nutrition Notes Start: 10/31/18 15:23 Freq: Status: Active Protocol: Document 11/05/18 14:33 RM (Rec: 11/05/18 15:15 RM [id number]) Nutrition Notes Initial or Follow up Reassessment Other Pertinent Diagnosis (R) lateral chest wall abscess Current Diet Mech Soft diet w/Ensure Enlive Vanilla TID Labs/Tests Reviewed Pertinent Medications Reviewed Height 6 ft 3 in Weight 41.5 kg [place] Body Weight (kg) 196.0 BMI 11.4 Weight change and time frame above wt from promotion writer weighing pt on bedscale Subjective/Other Information Pt stated that he eats 10-15% of his meals d/t disliking what he receives and that he has not been contacted by kitchen staff to discuss options. Offered numbers to contact kitchen staff but pt declined stating he probably wound not remember to call. Spoke w/chef kitchen manager and came to conclusion that pt had not heard previous phone calls. Pt gave menu selections to supervisor riprap placing via phone. Technical Business Analyst encouraged pt to keep phone in bed to better hear it and see flashing light indicator. Pt stated he drinks all of his Ensure Enlive. Percent of energy/protein needs met: 74%/100% Burn Absent Trauma Absent #1 Nutrition Diagnosis Malnutrition Diagnosis Progress(for reassessment Continues documentation) Is patient on ventilator? No Is Patient Ambulatory and/or Out of Bed No REE-([place]-St. Jeor-confined to bed) 1489.452 Kcal/Kg value to use for calculation 48 Approximate Energy Requirements Using 1992 kcal/Kg Calculation Used for Recommendations Kcal/kg Additional Notes Pro needs 1.2-1.5g/k-56g/ day Fluid needs 1ml/kcal Nutrition Intervention Change Diet Order: Continue current Add Supplement/Snack (indicate name/kcal Ensure Enlive TID (vanilla) /protein ) Provides kCal: 1,050 Provides Protein (gm) 60 Goal #1 PO intake of meals plus ONS to meet 100% energy and pro needs Goal #2 Wt maintenance and/or gain Anticipated Discharge Needs: [facility] soft diet Follow-Up By: 11/10/18 Additional Comments Follow for PO and ONS intakes
[2018-11-09] MEDS: REMERON SOLUTAB PO SCH (22:29)
[2018-11-10] MEDS: PULMICORT IH SCH ×2 (07:48→19:46)
[2018-11-10] MEDS: DUONEB *Not for PRN Use IH SCH ×3 (07:48→19:45)
[2018-11-10] MEDS: MIRALAX 3350 PO SCH (09:33)
[2018-11-10] MEDS: QUESTRAN PO SCH (09:33)
[2018-11-10] MEDS: MEGACE PO SCH (09:33)
[2018-11-10] MEDS: PROTONIX PO SCH (09:33)
[2018-11-10] MEDS: THERAGRAN-M Tab PO SCH (09:33)
[2018-11-10] MEDS: SODIUM CHLORIDE FLUSH SYRINGE 10 ML IV SCH ×2 (09:38→22:05)
[2018-11-10] MEDS: ZESTRIL PO SCH (09:40)
[2018-11-10] MEDS: KEPPRA PO SCH ×2 (12:20→22:27)
--- NOTE | 2018-11-10 14:56 | Progress Note ---
Assessment and Plan Assessment and plan: 73-year-old man who presented from local care home. He was brought in because of a mass on the right side of his chest. The patient's has chronic shortness of breath and chronically has trouble talking and expressing himself. He was first thought to be an abscess, but a biopsy was done by surgery, and was found to be a mass with necrotic tissue. It was biopsied, pathology pending. The patient received empiric antibiotics at first, on solid mass was ruled to not be an abscess. The antibiotics were discontinued. -He had a positive blood culture which grew diphtheroids, ID consult appreciate d, likely a contaminant, no further w/o or rx recommended -Septic shock was ruled out, the blood pressure cuff was too large for his size. He received IV fluids. He received dietitian consult for malnutrition. 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 hx of of cancer severe malnutrition sepsis ruled out septic shock ruled out Diptheroid bactermia, likely contaminant Constipation History Interval history: Review of systems Constitutional: No fevers, no malaise, no joint pains CVS: No chest pain, no orthopnea, no dyspnea on exertion, no pedal edema GI: No abdominal pain, no diarrhea, no vomiting, no constipation Respiratory: No shortness of breath, no wheezing, no coughing Hospitalist Physical - Physical exam Narrative exam: cachectic HEENT: Moist mucous membranes, extraocular muscles intact, no lymphadenopathy Neck: supple Cardiac: S1-S2 heard Lungs: clear to auscultation bilaterally Abdomen: soft , nontender, nondistended, bowel sounds positive Extremities: no edema clubbing or cyanosis Skin: no rash or lesions Neurologic: no gross focal deficits Psych: calm, and cooperative - Constitutional Vitals: Temp Pulse Resp BP Pulse Ox 98.0 F 97 H 20 104/53 96 11/10/18 13:23 11/10/18 13:23 11/10/18 13:23 11/10/18 13:23 11/10/18 13:23 Results - Labs CBC & Chem 7: 11/02/18 05:00 11/02/18 05:00 Labs: Laboratory Last Values WBC 12.9 K/mm3 (4.5-11.0) H 11/02/18 05:00 RBC 3.43 M/mm3 (3.65-5.03) L 11/02/18 05:00 Hgb 10.8 gm/dl (11.8-15.2) L 11/02/18 05:00 Hct 32.0 % (35.5-45.6) L 11/02/18 05:00 MCV 93 fl (84-94) 11/02/18 05:00 MCH 32 pg (28-32) 11/02/18 05:00 MCHC 34 % (32-34) 11/02/18 05:00 RDW 14.8 % (13.2-15.2) 11/02/18 05:00 Plt Count 318 K/mm3 (140-440) 11/02/18 05:00 Lymph % (Auto) 12.0 % (13.4-35.0) L 11/02/18 05:00 [place] % (Auto) 7.0 % (0.0-7.3) 11/02/18 05:00 Eos % (Auto) 0.2 % (0.0-4.3) 11/02/18 05:00 Baso % (Auto) 0.1 % (0.0-1.8) 11/02/18 05:00 Lymph # 1.5 K/mm3 (1.2-5.4) 11/02/18 05:00 [place] # 0.9 K/mm3 (0.0-0.8) H 11/02/18 05:00 Eos # 0.0 K/mm3 (0.0-0.4) 11/02/18 05:00 Baso # 0.0 K/mm3 (0.0-0.1) 11/02/18 05:00 Add Manual Diff Complete 10/31/18 00:24 Total Counted 100 10/31/18 00:24 Seg Neutrophils % 80.7 % (40.0-70.0) H 11/02/18 05:00 Seg Neuts % (Manual) 92.0 % (40.0-70.0) H 10/31/18 00:24 Band Neutrophils % 0 % 10/31/18 00:24 Lymphocytes % (Manual) 5.0 % (13.4-35.0) L 10/31/18 00:24 Reactive Lymphs % (Man) 0 % 10/31/18 00:24 Monocytes % (Manual) 3.0 % (0.0-7.3) 10/31/18 00:24 Eosinophils % (Manual) 0 % (0.0-4.3) 10/31/18 00:24 Basophils % (Manual) 0 % (0.0-1.8) 10/31/18 00:24 Metamyelocytes % 0 % 10/31/18 00:24 Myelocytes % 0 % 10/31/18 00:24 Promyelocytes % 0 % 10/31/18 00:24 Blast Cells % 0 % 10/31/18 00:24 Nucleated RBC % Not Reportable 10/31/18 00:24 Seg Neutrophils # 10.4 K/mm3 (1.8-7.7) H 11/02/18 05:00 Seg Neutrophils # Man 24.8 K/mm3 (1.8-7.7) H 10/31/18 00:24 Band Neutrophils # 0.0 K/mm3 10/31/18 00:24 Lymphocytes # (Manual) 1.4 K/mm3 (1.2-5.4) 10/31/18 00:24 Abs React Lymphs (Man) 0.0 K/mm3 10/31/18 00:24 Monocytes # (Manual) 0.8 K/mm3 (0.0-0.8) 10/31/18 00:24 Eosinophils # (Manual) 0.0 K/mm3 (0.0-0.4) 10/31/18 00:24 Basophils # (Manual) 0.0 K/mm3 (0.0-0.1) 10/31/18 00:24 Metamyelocytes # 0.0 K/mm3 10/31/18 00:24 Myelocytes # 0.0 K/mm3 10/31/18 00:24 Promyelocytes # 0.0 K/mm3 10/31/18 00:24 Blast Cells # 0.0 K/mm3 10/31/18 00:24 WBC Morphology Not Reportable 10/31/18 00:24 Hypersegmented Neuts Not Reportable 10/31/18 00:24 Hyposegmented Neuts Not Reportable 10/31/18 00:24 Hypogranular Neuts Not Reportable 10/31/18 00:24 Smudge Cells Not Reportable 10/31/18 00:24 Toxic Granulation Not Reportable 10/31/18 00:24 Toxic Vacuolation Not Reportable 10/31/18 00:24 Dohle Bodies Not Reportable 10/31/18 00:24 Pelger-Huet Anomaly Not Reportable 10/31/18 00:24 Terrence Rods Not Reportable 10/31/18 00:24 Platelet Estimate Appears normal 10/31/18 00:24 Clumped Platelets Not Reportable 10/31/18 00:24 Plt Clumps, EDTA Not Reportable 10/31/18 00:24 Large Platelets Not Reportable 10/31/18 00:24 Giant Platelets Not Reportable 10/31/18 00:24 Platelet Satelliting Not Reportable 10/31/18 00:24 Plt Morphology Comment Not Reportable 10/31/18 00:24 RBC Morphology Not Reportable 10/31/18 00:24 Dimorphic RBCs Not Reportable 10/31/18 00:24 Polychromasia Not Reportable 10/31/18 00:24 Hypochromasia Not Reportable 10/31/18 00:24 Poikilocytosis Not Reportable 10/31/18 00:24 Anisocytosis 1+ 10/31/18 00:24 Microcytosis Not Reportable 10/31/18 00:24 Macrocytosis Not Reportable 10/31/18 00:24 Spherocytes Not Reportable 10/31/18 00:24 Pappenheimer Bodies Not Reportable 10/31/18 00:24 Sickle Cells Not Reportable 10/31/18 00:24 Target Cells Not Reportable 10/31/18 00:24 Tear Drop Cells Not Reportable 10/31/18 00:24 Ovalocytes 1+ 10/31/18 00:24 Helmet Cells Rare 10/31/18 00:24 [place] Bodies Not Reportable 10/31/18 00:24 [place] Rings Not Reportable 10/31/18 00:24 [place]vin Cells 2+ 10/31/18 00:24 Bite Cells Not Reportable 10/31/18 00:24 Crenated Cell Not Reportable 10/31/18 00:24 Elliptocytes 1+ 10/31/18 00:24 Acanthocytes (Spur) Not Reportable 10/31/18 00:24 Rouleaux Not Reportable 10/31/18 00:24 Hemoglobin C Crystals Not Reportable 10/31/18 00:24 Schistocytes Not Reportable 10/31/18 00:24 Malaria parasites Not Reportable 10/31/18 00:24 Lalo Bodies Not Reportable 10/31/18 00:24 Hem Pathologist Commnt No 10/31/18 00:24 Sodium 137 mmol/L (137-145) 11/02/18 05:00 Potassium 4.0 mmol/L (3.6-5.0) 11/02/18 05:00 Chloride 103.9 mmol/L (98-107) 11/02/18 05:00 Carbon Dioxide 21 mmol/L (22-30) L 11/02/18 05:00 Anion Gap 16 mmol/L 11/02/18 05:00 BUN 10 mg/dL (9-20) 11/02/18 05:00 Creatinine 0.4 mg/dL (0.8-1.5) L 11/02/18 05:00 Estimated GFR > 60 ml/min 11/02/18 05:00 BUN/Creatinine Ratio 25 % 11/02/18 05:00 Glucose 102 mg/dL (75-100) H 11/02/18 05:00 POC Glucose 155 (70-105) H 11/02/18 15:23 Lactic Acid 1.70 mmol/L (0.7-2.0) 10/30/18 20:49 Calcium 8.6 mg/dL (8.4-10.2) 11/02/18 05:00 Total Bilirubin 0.40 mg/dL (0.1-1.2) 10/31/18 00:24 AST 19 units/L (5-40) 10/31/18 00:24 ALT 10 units/L (7-56) 10/31/18 00:24 Alkaline Phosphatase 121 units/L (35-129) 10/31/18 00:24 Total Protein 6.5 g/dL (6.3-8.2) 10/31/18 00:24 Albumin 3.4 g/dL (3.9-5) L 10/31/18 00:24 Albumin/Globulin Ratio 1.1 % 10/31/18 00:24 Urine Color Yellow (Yellow) 10/31/18 05:35 Urine Turbidity Slightly-cloudy (Clear) 10/31/18 05:35 Urine pH 5.0 (5.0-7.0) 10/31/18 05:35 Ur Specific [place] 1.017 (1.003-1.030) 10/31/18 05:35 Urine Protein <15 mg/dl mg/dL (Negative) 10/31/18 05:35 Urine Glucose (UA) Neg mg/dL (Negative) 10/31/18 05:35 Urine Ketones Tr mg/dL (Negative) 10/31/18 05:35 Urine Blood Neg (Negative) 10/31/18 05:35 Urine Nitrite Neg (Negative) 10/31/18 05:35 Urine Bilirubin Neg (Negative) 10/31/18 05:35 Urine Urobilinogen < 2.0 mg/dL (<2.0) 10/31/18 05:35 Ur Leukocyte Esterase Neg (Negative) 10/31/18 05:35 Urine WBC (Auto) 8.0 /HPF (0.0-6.0) H 10/31/18 05:35 Urine RBC (Auto) 29.0 /HPF (0.0-6.0) 10/31/18 05:35 U Epithel Cells (Auto) 1.0 /HPF (0-13.0) 10/31/18 05:35 Calcium Oxalate Crystal 1+ 10/31/18 05:35 Hyaline Casts 4 /LPF 10/31/18 05:35 Urine Mucus Few /HPF 10/31/18 05:35 Nutrition/Malnutrition Assess - Dietary Evaluation Nutrition/Malnutrition Findings: Nutrition Notes Start: 10/31/18 15:23 Freq: Status: Active Protocol: Document 11/10/18 11:42 KEHINDE (Rec: 11/10/18 11:49 KEHINDE [email or web address]) Nutrition Notes Initial or Follow up Reassessment Current Diagnosis Malnutrition Other Pertinent Diagnosis Metastatic lung adenocarcinoma , constipation Current Diet Mech soft + Ensure Enlive TID Labs/Tests No new available Pertinent Medications Reviewed Height 6 ft 3 in Weight 42.5 kg [place] Body Weight (kg) 89.09 BMI 11.7 Weight change and time frame Current wt obtained from bed scale Subjective/Other Information Pt has consumed 36% of meals since last assessment; he drinks 100% of ONS daily. Percent of energy/protein needs met: 100% energy/pro (meals + ONS) 51% energy 71% pro (meals only) Burn Absent Trauma Absent #1 Nutrition Diagnosis Malnutrition Diagnosis Progress(for reassessment Continues documentation) Is patient on ventilator? No Is Patient Ambulatory and/or Out of Bed No [facility] 1501.440 Kcal/Kg value to use for calculation 45 Approximate Energy Requirements Using 1913 kcal/Kg Calculation Used for Recommendations Kcal/kg Additional Notes Pro needs 1.2-1.5g/k-64g/ day Fluid needs 1ml/kcal Nutrition Intervention Change Diet Order: Continue current diet order Add Supplement/Snack (indicate name/kcal Ensure Enlive TID (vanilla) /protein ) Provides kCal: 1,050 Provides Protein (gm) 60 Goal #1 PO intake of meals plus ONS to meet 100% energy and pro needs Goal #2 Wt maintenance and/or gain Anticipated Discharge Needs: Continue [facility] soft diet with Ensure Enlive (or equivalent TID Follow-Up By: 11/17/18 Additional Comments F/U: intakes (meals/ONS), wt
[2018-11-10] MEDS: REMERON SOLUTAB PO SCH (22:27)
--- NOTE | 2018-11-11 07:30 | Hem/Onc Progress Note ---
Assessment and Plan 1. Soft tissue lesion, right chest. - lung ca - mets 2. Bilateral lower lobe nodules, which may be neoplastic. 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 It is not clear if this was lung cancer or sarcoma. The patient is emaciated. 3. History of hypertension. Now, the BP is low. 4. History of loss of weight. 5. History of seizure disorder. There is a plan for biopsy. We will await for pathology. The nursing staff will call the family to find out who the patient's oncologist is. 6. Leukocytosis, likely reactive. 11/02/2018- pt has feeble slurred speech - ? oncologist at ? [facility]? 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 neoplastic pt had CT abdo - pt had a BM - d/w RN 11/09 - placement pending 11/11 - as OP will look into testing to see if any oral meds will work - Patient Problems (1) Neoplasm of uncertain behavior of skin Current Visit: Yes Status: Acute Subjective Date of service: 11/11/18 Principal diagnosis: lung ca Interval history: waiting for placement Objective - Constitutional Vitals: Last Vital Signs Temp 98.3 F 11/11/18 02:30 Pulse 82 11/11/18 02:30 Resp 20 11/11/18 02:30 BP 111/72 11/11/18 02:30 Pulse Ox 100 11/11/18 02:30 Medications & Allergies - Medications Allergies/Adverse Reactions: Allergies No Known Allergies Allergy (Verified 08/21/18 19:54) Home Medications: Home Medications Medication Instructions Recorded Confirmed Last Taken Type Lisinopril [Zestril] 20 mg PO DAILY 08/22/18 10/30/18 Unknown History Loperamide HCl [Imodium A-D] 2 mg PO Q6HR PRN 08/22/18 10/30/18 Unknown History Megestrol [Megace] 20 mg PO DAILY 08/22/18 10/30/18 Unknown History Mirtazapine [Remeron] 15 mg PO HS 08/22/18 10/30/18 Unknown History Multivit-Min/Iron Fum/Folic AC 1 each PO DAILY 08/22/18 10/30/18 Unknown History [Fzvmy-Csrqlsp-Aqvolvni Tablet] Tramadol HCl [Ultram] 50 mg PO Q6H PRN 08/22/18 10/30/18 Unknown History ALBUTEROL NEB's [Proventil] 2.5 mg IH BID PRN 10/30/18 10/30/18 Unknown History Acetaminophen [Tylenol] 500 mg PO Q8HR PRN 10/30/18 10/30/18 Unknown History Budesonide [Pulmicort] 0.5 mg IH Q12HR PRN 10/30/18 10/30/18 Unknown History Cholestyramine (with Sugar) 4 gm PO DAILY 10/30/18 10/30/18 Unknown History [Questran Powder] Pantoprazole [Protonix] 40 mg PO QDAY 10/30/18 10/30/18 Unknown History Saccharomyces Boulardii [Florastor] 250 mg PO BID PRN 10/30/18 10/30/18 Unknown History levETIRAcetam [Keppra TAB] 500 mg PO BID 10/30/18 10/30/18 Unknown History Active Medications: Generic Name Dose Route Start Last Admin Trade Name Freq PRN Reason Stop Dose Admin Acetaminophen 650 mg 10/31/18 00:14 Tylenol PO Q4H PRN Pain MILD(1-3)/Fever >100.5/PINA Albuterol 2.5 mg 11/01/18 20:09 Proventil IH Q4HRT PRN Shortness Of Breath Albuterol/Ipratropium 1 ampul 11/02/18 09:00 11/10/18 19:45 Duoneb *Not For Prn Use* IH 1 ampul TIDRT SERGIO Administration Bisacodyl 10 mg 01/27/19 14:00 Dulcolax NV Q72H PRN Constipation Budesonide 0.5 mg 11/08/18 20:15 11/10/18 19:46 Pulmicort IH 0.5 mg Q12HRT SERGIO Administration Cholestyramine Resin 4 gm 10/31/18 10:00 11/10/18 09:33 Questran PO 4 gm DAILY SERGIO Administration Glycerin 1 supp 11/08/18 14:00 Glycerin Adult 2 Gm NV QDAY PRN Constipation Hydromorphone HCl 0.5 mg 10/31/18 00:14 Dilaudid IV Q3H PRN Pain , Severe (7-10) Sodium Chloride 1,000 mls @ 75 mls/hr 10/31/18 01:00 11/08/18 05:16 Nacl 0.9% 1000 Ml IV 75 mls/hr DIRECT SERGIO Administration Sodium Chloride 1,000 mls @ 999 mls/hr 11/01/18 09:00 Nacl 0.9% 1000 Ml IV DIRECT SERGIO Levetiracetam 500 mg 10/31/18 22:30 11/10/18 22:27 Keppra PO 500 mg BID SERGIO Administration Lisinopril 20 mg 10/31/18 10:00 11/10/18 09:40 Zestril PO Not Given DAILY SERGIO Loperamide HCl 2 mg 10/31/18 02:46 Imodium PO Q6H PRN Diarrhea Megestrol Acetate 20 mg 10/31/18 10:00 11/10/18 09:33 Megace PO 20 mg DAILY SERGIO Administration Metoclopramide HCl 10 mg 10/31/18 00:14 Reglan IV Q6H PRN Nausea And Vomiting Mirtazapine 15 mg 10/31/18 22:00 11/10/18 22:27 Remeron Solutab PO 15 mg HS SERGIO Administration Miscellaneous Medication 250 mg 10/31/18 00:11 Saccharomyces Boulardii [Florastor] PO BID PRN Diarrhea Multivitamins/Minerals 1 each 10/31/18 10:00 11/10/18 09:33 Theragran-M Tab PO 1 each QDAY SERGIO Administration Ondansetron HCl 4 mg 10/31/18 00:14 Zofran IV Q8H PRN Nausea And Vomiting Pantoprazole Sodium 40 mg 10/31/18 10:00 11/10/18 09:33 Protonix PO 40 mg QDAY SERGIO Administration Polyethylene Glycol 17 gm 11/09/18 10:00 11/10/18 09:33 Miralax 3350 PO 17 gm QDAY SERGIO Administration Senna/Docusate Sodium 2 tab 11/08/18 22:00 Senokot S PO Q12H PRN Laxative Effect Sodium Chloride 10 ml 10/31/18 10:00 11/10/18 22:05 Sodium Chloride Flush Syringe 10 Ml IV 10 ml BID SERGIO Administration Sodium Chloride 10 ml 10/31/18 00:14 10/31/18 02:54 Sodium Chloride Flush Syringe 10 Ml IV 10 ml PRN PRN Administration LINE FLUSH Tramadol HCl 50 mg 10/31/18 00:11 Ultram PO Q6H PRN Pain, Moderate (4-6)
[2018-11-11] MEDS: DUONEB *Not for PRN Use IH SCH ×2 (07:41→13:08)
[2018-11-11] MEDS: PULMICORT IH SCH (07:41)
[2018-11-11 09:36] VITALS: BP 112/69
[2018-11-11] MEDS: ZESTRIL PO SCH (09:36)
[2018-11-11] MEDS: KEPPRA PO SCH (09:41)
[2018-11-11] MEDS: PROTONIX PO SCH (09:41)
[2018-11-11] MEDS: MIRALAX 3350 PO SCH (09:41)
[2018-11-11] MEDS: QUESTRAN PO SCH (09:41)
[2018-11-11] MEDS: THERAGRAN-M Tab PO SCH (09:41)
[2018-11-11] MEDS: MEGACE PO SCH (09:41)
[2018-11-11] MEDS: SODIUM CHLORIDE FLUSH SYRINGE 10 ML IV SCH (09:42)
--- NOTE | 2018-11-11 11:43 | Discharge Summary ---
Providers - Providers Date of Admission: 10/30/18 16:41 Attending physician: JOHAN PICKARD MD 10/31/18 00:14 Consult to Physician [CONS] Routine Comment: doctor seen patient/marjorie Consulting Provider: AAKASH REINA Physician Instructions: Reason For Exam: Lung Ca 10/31/18 00:17 Consult to Physician [CONS] Routine Comment: called answ. serv. /marjorie Consulting Provider: QUINCY GALVAN Physician Instructions: Reason For Exam: Abscess Rt lateral chest wall 10/31/18 12:55 Consult to Dietitian/Nutrition [CONS] Routine Physician Instructions: Reason For Exam: Reason for Consult: Malnutrition 11/02/18 06:27 Consult to Wound/ET Nurse [CONS] Urgent Reason For Exam: wound eval 11/05/18 09:44 Consult to Physician [CONS] Routine Comment: spoke to kerry/ marjorie Consulting Provider: ASIA BELLE Physician Instructions: Reason For Exam: bacteremia 11/05/18 14:35 Physical Therapy Evaluation and Treat [CONS] Routine Comment: Reason For Exam: ataxia Primary care physician: [employer] Hospitalization Condition: Fair Hospital course: 73-year-old [facility] He was brought in because of a mass on the right side of his chest. The patient's has chronic shortness of breath and chronically has trouble talking and expressing himself. He was first thought to be an abscess, but a biopsy was done by surgery, and was found to be a mass with necrotic tissue. It was biopsied, pathology pending. The patient received empiric antibiotics at first, on solid mass was ruled to not be an abscess. The antibiotics were discontinued. -He had a positive blood culture which grew diphtheroids, ID consult appreciated, likely a contaminant, no further w/o or rx recommended -Septic shock was ruled out, the blood pressure cuff was too large for his size. He received IV fluids. He received dietitian consult for malnutrition. 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, he is too weak to walk, will need improved functional status before he can be offered chemo, he would like to fup with Oncology upon dc -enema was adminstered, and bowel regimen started for constipation -patient asked to be placed in a different SNF, he was placed snf with hospice, he understands that he must withdraw from hospice to get chemo if he is able to do so in the future Diagnosis Metastatic [place] of Lung with mets to chest wall hx of of cancer severe malnutrition sepsis ruled out septic shock ruled out Diptheroid bactermia, likely contaminant Constipation Disposition: [id number]/[place]-[id number] SNF [facility] Time spent for discharge: 33 mins Core Measure Documentation - Palliative Care Palliative Care/ Comfort Measures: Hospice Care - Core Measures Any of the following diagnoses?: none Exam - Physical Exam Narrative exam: cachectic HEENT: Moist mucous membranes, extraocular muscles intact, no lymphadenopathy Neck: supple Cardiac: S1-S2 heard Lungs: clear to auscultation bilaterally Abdomen: soft , nontender, nondistended, bowel sounds positive Extremities: no edema clubbing or cyanosis Skin: no rash or lesions Neurologic: no gross focal deficits Psych: calm, and cooperative - Constitutional Vitals: Temp Pulse Resp BP Pulse Ox 98.2 F 96 H 18 112/69 97 11/11/18 08:23 11/11/18 09:36 11/11/18 08:23 11/11/18 09:36 11/11/18 08:23 Plan Follow up with: AAKASH REINA MD [Staff Physician] - 7 Days PRIMARY CAREMD [Primary Care Provider] - 3-5 Days Prescriptions: Tramadol HCl [Ultram] 50 mg PO Q6H PRN #7 tablet PRN Reason: Pain, Moderate (4-6)
== END 2018-11-11 13:32 | DRG 597 ==
LOC: ED 12:53 → 2B-ACE 16:41
PROVIDERS: ADMIT Internal Medicine; ATTEND Internal Medicine
PROC: 0W980ZZ Drainage of Chest Wall, Open Approach (ICD-10-PCS; 2018-10-30)
PROC: 3E0234Z Introduction of Serum, Toxoid and Vaccine into Muscle, Percutaneous Approach (ICD-10-PCS; 2018-10-31)
PROC: 0JB60ZX Excision of Chest Subcutaneous Tissue and Fascia, Open Approach, Diagnostic (ICD-10-PCS; principal; 2018-11-02)
DX: C79.2 Secondary malignant neoplasm of skin (principal); E43 Unspecified severe protein-calorie malnutrition; C79.89 Secondary malignant neoplasm of other specified sites; E87.1 Hypo-osmolality and hyponatremia; I69.354 Hemiplegia and hemiparesis following cerebral infarction affecting left non-dominant side; I10 Essential (primary) hypertension; J44.9 Chronic obstructive pulmonary disease, unspecified; K21.9 Gastro-esophageal reflux disease without esophagitis; G40.909 Epilepsy, unspecified, not intractable, without status epilepticus; I48.91 Unspecified atrial fibrillation; K59.00 Constipation, unspecified; F17.210 Nicotine dependence, cigarettes, uncomplicated; D72.829 Elevated white blood cell count, unspecified; G89.29 Other chronic pain; E83.52 Hypercalcemia; Z90.2 Acquired absence of lung [part of]; Z79.51 Long term (current) use of inhaled steroids; Z79.899 Other long term (current) drug therapy; Z85.118 Personal history of other malignant neoplasm of bronchus and lung; Z82.49 Family history of ischemic heart disease and other diseases of the circulatory system; Z71.6 Tobacco abuse counseling; Z23 Encounter for immunization
CPT/HCPCS: 36415; 71045; 71250; 74177; 80048; 80053; 81001; 82140; 82962; 85007; 85025; 87040; 88305; 88307; 88341; 88342; 90471; 90732; 94640; 94644; 94760; 96365; 96366; 96367; 99406; G0378; G0009; J0692; J1956; J2250; J2704; J3010; J3370; J7030; J7040; J7050; Q9967